=== PATIENT | male | born 1955 | race American Indian/Alaskan Native ===

== ENCOUNTER 2018-11-27 12:42 | Inpatient (IN) ==
--- NOTE | 2018-11-27 13:00 | Emergency Department Note ---
SOB HPI - General Chief Complaint: Shortness of Breath/Dyspnea Stated Complaint: Cough, hx pna, SOB Time Seen by Provider: 11/27/18 12:57 Source: patient Mode of arrival: ambulatory Limitations: no limitations - History of Present Illness Patient was seen at the [facility] on 10/30/18 for pneumonia and treated outpatient with antibiotics apparently was rechecked on 11/14/18 and cleared. They state the flu test was negative at that time he is a dialysis pat ient of Dr. Chambers has dialysis 3 times a week just had dialysis this morning. He is complaining of continued cough, and fever and chills. And some shortness of breathHis temperature is 102.2 the pulse is 104 the respiratory rate is 20 the blood pressure is 99/63 and pulse ox is 91% on room air his Accu-Chek is 71. Patient has a heavy history of tobacco in the past states he had smoked up to 24 packs of cigarettes a day claims to have quit approximately 15-20 years ago. - Related Data Home Medications Medication Instructions Recorded Confirmed Sevelamer [Renvela] 1,600 tab PO TIDCC 04/30/15 11/27/18 Calcium Acetate [Phoslo] 667 mg PO TIDCC 07/14/15 11/27/18 Ciprofloxacin 0.3% Ophth Drops 5 gtt OD TID 11/27/18 11/27/18 [Ciloxan 0.3% Ophth Drops] Loperamide HCl [Loperamide] 4 mg PO PRN PRN MDD 16 mg 11/27/18 11/27/18 Megestrol Acetate [Megace] 40 mg PO DAILY 11/27/18 11/27/18 Midodrine [Midodrine HCl] 5 mg PO BID 11/27/18 11/27/18 Allergies Allergy/AdvReac Type Severity Reaction Status Date / Time No Known Drug Allergies Allergy Verified 08/09/18 09:45 Review of Systems All systems ED: reviewed and negative except as stated. Constitutional: Reports: fever, chills Respiratory: Reports: shortness of breath, cough. Denies: wheezes, phlegm Gastrointestinal: Denies: abdominal pain, nausea Past Medical History - Past Medical History PMF Narrative: All Active Problems (Last Reviewed 08/09/18 @ 09:51 by HIMANSHU Mack) Septic arthritis (Acute) Septic arthritis of ankle or foot (Acute) Osteomyelitis (Acute) Wrist pain, left (Acute) Medical history: Reports: other (Patient has a history of chronic renal failure and currently on dialysis, history of hepatitis, peripheral neuropathy,) Surgical history ED: Reports: other (Cataract, tonsillectomy, cholecystectomy,) - Social History smoking status: Former smoker Alcohol use: Reports: Unknown Drug use: Reports: unknown Physical Exam Limitations: no limitations General appearance: alert Head: atraumatic, normocephalic Eye: Present: normal appearance, PERRL ENT: normal exam, normal oropharynx, mucous membranes moist Neck: Present: normal inspection, full ROM, trachea midline Chest: Present: normal inspection, symmetric chest wall rise Respiratory: Present: normal lung sounds bilaterally. Absent: respiratory distress Cardiovascular: Present: regular rate, normal rhythm. Absent: bradycardia, tachycardia Abdominal: Present: soft, distention, tenderness Extremities: Present: normal inspection, full ROM. Absent: tenderness Back: Present: normal inspection, full ROM. Absent: tenderness Neurological: Present: alert, oriented X3, CN II-XII intact, normal gait. Absent: motor sensory deficit Psychiatric: Present: normal affect, normal mood. Absent: depressed, agitated Skin: Present: warm, dry, intact, normal color Course Vital Signs Temperature 102.2 F H 11/27/18 12:43 Pulse Rate 104 H 11/27/18 12:43 Respiratory Rate 20 11/27/18 12:43 Blood Pressure 99/63 11/27/18 12:43 Pulse Oximetry (%) 91 11/27/18 12:43 Temperature 98.8 F 11/28/18 04:01 Pulse Rate 66 11/28/18 06:01 Respiratory Rate 16 11/28/18 06:01 Blood Pressure 86/59 11/28/18 06:01 Pulse Oximetry (%) 100 11/28/18 06:01 Shortness of Breath/Dyspnea - Lab Data Result diagrams: 11/28/18 04:10 11/28/18 04:10 Lab Results 11/27/18 11/27/18 11/27/18 Range/Units 13:02 13:02 13:02 WBC (4.5-11.0) K/mcL RBC (4.50-5.90) M/mcL Hgb (13.5-16.5) g/dL Hct (41.0-55.0) % MCV (80.0-100.0) fL MCH (26.0-34.0) pg MCHC (31.0-36.0) g/dL RDW (11.5-14.5) % Plt Count (140-440) K/mcL MPV (7.4-10.4) fL Total Counted Seg Neutrophils % (38-78) % Band Neutrophils % (0-10) % Lymphocytes % (15-49) % Monocytes % (Manual) (1-12) % Platelet Estimate (NORMAL) RBC Morphology (NORMAL) PT 17.0 H (11.9-14.5) sec INR 1.4 H (0.9-1.1) VBG Lactic Acid 1.8 (0.5-2.0) mmol/L Sodium 131 L (133-145) mmol/L Potassium 3.3 (3.3-5.1) mmol/L Chloride 93 L (96-108) mmol/L Carbon Dioxide 33 H (22-30) mmol/L Anion Gap 5.0 L (8-16) BUN 19 (8-23) mg/dl Creatinine 1.9 H (0.7-1.2) mg/dl GFR Calculation 37 Glucose 76 (70-105) mg/dL Calcium 7.4 L (8.6-10.4) mg/dl Total Bilirubin 0.8 (0.0-1.0) mg/dL AST 20 (0-37) U/l ALT 11 (0-40) U/l Alkaline Phosphatase 75 (39-117) U/L NT-Pro-B Natriuret Pep 4767.0 H (0-125) pg/ml Total Protein 6.4 (5.9-8.4) gm/dL Albumin 2.2 L (3.2-5.2) gm/dL Globulin 4.2 H (2.2-3.7) gm/dL Albumin/Globulin Ratio 0.5 L (1.0-2.3) 11/27/18 Range/Units 13:03 WBC 8.1 (4.5-11.0) K/mcL RBC 2.76 L (4.50-5.90) M/mcL Hgb 8.5 L (13.5-16.5) g/dL Hct 25.9 L (41.0-55.0) % MCV 94.1 (80.0-100.0) fL MCH 30.8 (26.0-34.0) pg MCHC 32.8 (31.0-36.0) g/dL RDW 15.6 H (11.5-14.5) % Plt Count 23 L* (140-440) K/mcL MPV 9.2 (7.4-10.4) fL Total Counted 100 Seg Neutrophils % 88 H (38-78) % Band Neutrophils % 1 (0-10) % Lymphocytes % 10 L (15-49) % Monocytes % (Manual) 1 (1-12) % Platelet Estimate Mk decr A (NORMAL) RBC Morphology Normal (NORMAL) PT (11.9-14.5) sec INR (0.9-1.1) VBG Lactic Acid (0.5-2.0) mmol/L Sodium (133-145) mmol/L Potassium (3.3-5.1) mmol/L Chloride (96-108) mmol/L Carbon Dioxide (22-30) mmol/L Anion Gap (8-16) BUN (8-23) mg/dl Creatinine (0.7-1.2) mg/dl GFR Calculation Glucose (70-105) mg/dL Calcium (8.6-10.4) mg/dl Total Bilirubin (0.0-1.0) mg/dL AST (0-37) U/l ALT (0-40) U/l Alkaline Phosphatase (39-117) U/L NT-Pro-B Natriuret Pep (0-125) pg/ml Total Protein (5.9-8.4) gm/dL Albumin (3.2-5.2) gm/dL Globulin (2.2-3.7) gm/dL Albumin/Globulin Ratio (1.0-2.3) Disposition Pt seen by PHARMACEUTICAL SERVICE REPRESENTATIVE/PA only: No Clinical Impression: Pneumonia Disposition: Xfer As Inpt ([facility]) Condition: Fair Time of Disposition: 08:06
--- NOTE | 2018-11-27 13:45 | XRay Report ---
HISTORY: Cough for one month FINDINGS: Moderate bibasilar pneumonia is present, right worse than left. Mild increased interstitial lung markings are present around both maddie. These are new findings since 02/25/17. No mass is identified. There is no pleural effusion and no adenopathy is identified. The heart size is normal and there is no congestive heart failure. IMPRESSION: Moderate bilateral pneumonia with the greatest involvement in the right lower lobe Interpreted and Authenticated by: Surendra Iyer 11/27/18
[2018-11-27] MEDS ORDERED: cefTRIAXone 1 GM VIAL IV ONE (14:01)
[2018-11-27] MEDS ORDERED: AZITHROMYCIN 500 MG in DEXTROSE 5% IN WATER 250 ML IV ONE (14:02)
[2018-11-27 14:06] LABS: Band Neutrophils % 1 % (0-10); Lymphocytes % 10 % (15-49); Monocytes % (Manual) 1 % (1-12); Platelet Estimate MK DECR (NORMAL); RBC Morphology NORMAL (NORMAL); Segmented Neutrophils % 88 % (38-78)
[2018-11-27 14:08] LABS: Mean Cell Volume 94.1 fL (80.0-100.0); Mean Corpuscular HGB Conc 32.8 g/dL (31.0-36.0); Platelet Count 23 K/mcL (140-440); RBC 2.76 M/mcL (4.50-5.90); Red Cell Distribution Width 15.6 % (11.5-14.5)
[2018-11-27 14:09] LABS: ALT/SGPT 11 U/l (0-40); Albumin 2.2 gm/dL (3.2-5.2); Albumin/Globulin Ratio 0.5 (1.0-2.3); Alkaline Phosphatase 75 U/L (39-117); Blood Urea Nitrogen 19 mg/dl (8-23)
[2018-11-27] MEDS ORDERED: LACTATED RINGERS 1,000 ML IV ONE (15:07)
--- NOTE | 2018-11-27 15:56 | Internal Med History&Physical ---
Medical - H&P: HPI Patient information: Note initiated : 11/27/18 at 3:49 pm Service Date, if different from initiated Date: [] Patient: Erwin Gaxiola a 63 y/o M admitted on for Cough, hx pna, SOB. Chief Complaint: [] History of present illness: Mr. Gaxiola is a 63 year old M with h/o esrd on HD, presents to the ER today accompanied by his daugther for evaluation of shortness of breath and fever The patient notes that his symptoms have been going on for a month, started with a ear infectin, he was sen by ENT and advised to start on antibiotic ear drops. The patient later had cough and shortness of breath, fatigue, decreased appetitie and weight loss. He was seen by his PCP diagnosed as pneumonia and pre scribed antibiotics. (keflex?). The patient notes he took his antibiotics, but they got over a week ago, he was relapsing. He became progressively more short of breath, febrile, cough with yellow sputum, chills. He had his HD today, and was febrile and was sent to ER for further evaluation In the ER on presentation, patient had a fever of 102.2, heart rate 104, blood pressure 99 x 63 saturating 91% on room air. WBC count 8.1 hemoglobin 8.5 platelets 23 [is chronically low platelets have been in the 30s and 40s in the past], lactic acid 1.8, sodium 131 potassium 3.3 bicarbonate 33 creatinine 1.9 glucose 76 BNP 7467, Albumin was 2.2. Chest x-ray shows bilateral pneumonia right more than left basilar. Blood cultures were sent, Rocephin and azithromycin was given in the ED. Patient had low blood pressure 80 systolic, and was admitted to PCU for further management All systems: reviewed and no additional remarkable complaints except as stated (As per HPI rest negative) Medical - H&P: PMH Medical history: Medical History 1. Type 2 diabetes, long-standing. 2. End-stage renal disease on chronic hemodialysis 3 days a week. 3. Diabetic neuropathy and nephropathy. 4. Anemia of chronic kidney disease. 5. Hyperparathyroidism. 6. Hypertension. 7. Chronic lower extremity diabetic foot ulcers. 8. He had tenosynovitis involving his hand for which he needed antibiotics for a long time. 9. He has subclavian stenosis at the site of his AV fistula which is a total occlusion. 10. Gastroesophageal reflux disease. 11.thrombocytopenia 12.malnourished Surgical history: right finger amputations. Family history: reviewed and not pertinent Pertinent family history: FAMILY HISTORY: Significant for gastroesophageal reflux disease in mother and father, and diabetes mellitus in grandmother. No history of malignancies. Social history: The patient is a ex smoker . He used to drink but quit . 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 smokes thc daily Medical - H&P: Meds Home Medications Medication Instructions Recorded Confirmed Type Sevelamer [Renvela] 2 tab PO TID 04/30/15 11/27/18 History Calcium Acetate [Phoslo] 667 mg PO QID 07/14/15 11/27/18 History Ciprofloxacin 0.3% Ophth Drops 5 gtt OD TID 11/27/18 11/27/18 History [Ciloxan 0.3% Ophth Drops] Loperamide HCl [Loperamide] 4 mg PO PRN PRN 11/27/18 11/27/18 History Megestrol Acetate [Megace] 40 mg PO DAILY 11/27/18 11/27/18 History Midodrine [Midodrine HCl] 5 mg PO BID 11/27/18 11/27/18 History Allergies Allergy/AdvReac Type Severity Reaction Status Date / Time No Known Drug Allergies Allergy Verified 08/09/18 09:45 Medical - H&P: Exam - Constitutional Vitals: Temp Pulse Resp BP Pulse Ox 100.7 F H 98 H 23 H 85/61 95 11/27/18 13:00 11/27/18 14:31 11/27/18 15:21 11/27/18 15:16 11/27/18 14:31 Exam: GENERAL: The patient is a thin malnourished frail individual poorly kept alert oriented x3 VITAL SIGNS: Reviewed and as noted elsewhere. HEENT: Head is normocephalic and atraumatic. Extraocular muscles are intact. Pupils are equal, round, and reactive to light. Nares appeared normal. Mouth appears any without lesions. Mucous membranes are dry NECK: Normal to inspection, Supple, No lymphadenopathy or thyromegaly. LUNGS: Air entry equal on both sides, no wheezing, bibasilar crackles at the bases noted left more than right HEART: Regular rate and rhythm normal, S1 and S2 heard, no Gallop, S3 or Rub Noted, No Gross murmur heard. ABDOMEN: Soft, nontender, and nondistended. Positive bowel sounds. No hepatosplenomegaly was noted. Scaphoid abdomen EXTREMITIES: No cyanosis, clubbing, rash, lesions or edema. Right upper extremity digits missing NEUROLOGIC: Cranial nerves II through XII are grossly intact. Motor and Sensory System Grossly Intact PSYCHIATRIC: Normal affect, Normal Mood. Appropriate Behavior. SKIN: No ulceration or wounds noted, No jaundice, No rash noted. Medical - H&P: Reslt - Labs CBC & Chem 7: 11/27/18 13:03 11/27/18 13:02 Labs: Short CBC 11/27/18 Range/Units 13:03 WBC 8.1 (4.5-11.0) K/mcL Hgb 8.5 L (13.5-16.5) g/dL Hct 25.9 L (41.0-55.0) % Plt Count 23 L* (140-440) K/mcL BMP 11/27/18 13:02 Sodium 131 L Potassium 3.3 Chloride 93 L Carbon Dioxide 33 H BUN 19 Creatinine 1.9 H Glucose 76 Calcium 7.4 L Liver Function 11/27/18 Range/Units 13:02 Total Bilirubin 0.8 (0.0-1.0) mg/dL AST 20 (0-37) U/l ALT 11 (0-40) U/l Alkaline Phosphatase 75 (39-117) U/L Albumin 2.2 L (3.2-5.2) gm/dL Medical - H&P: A/P - Narrative A/P Narrative: A/P Sepsis/ HCAP pneumoina -IV vanco,cefepime and levofloxacin for now, follow blood culture results sputum cultures. Check viral respiratory panel. Hypotension -It seems patient was on midodrine as an outpatient but this was recently started according to the patient after he was diagnosed with the infection is also had significant weight loss. IV fluids for now monitor, will try to keep map > 65 ESRD on HD Follows with Dr. Chambers, he has been consulted through the ED, patient had dialysis today Thrombocytopenia -Seems chronic levels are worse today could be explained by acute infection, will check peripheral smear, HIV, check liver ultrasound for hepatosplenomegaly liver cirrhosis given history of alcohol use in the past, check hep B and hep C B12 and folate levels Malnutrition severe -Dietary consult, pt on megace, smokes thc daily. -has chr diarrhea, was scheduled for Colonoscopy tomorrow by Dr Kam, also EGD few days from now. Hold off on same for now, Diabetes -Sliding scale insulin while inpatient History of hypertension -Blood pressure low now monitor Anemia of chr disease/ Renal disease -monitor hb, send workup if needed, transfuse if < 7 Vascular disease/atherosclerosis -resume home meds DVT SCD Full code
[2018-11-27] MEDS ORDERED: CEFEPIME 1 GM VIAL IV SCH (16:02)
[2018-11-27] MEDS ORDERED: ACETAMINOPHEN 325 MG TABLET PO PRN (16:02)
[2018-11-27] MEDS ORDERED: NALOXONE HCL 0.4 MG/ML VIAL IV PRN (16:02)
[2018-11-27] MEDS ORDERED: VANCOMYCIN PER PHARMACY IV ONE (16:02)
[2018-11-27] MEDS ORDERED: SENNOSIDES 1 TABLET PO PRN (16:02)
[2018-11-27] MEDS ORDERED: LEVOFLOXACIN 750 MG/150 ML BAG IV ONE ×2 (16:02→17:00)
[2018-11-27] MEDS ORDERED: LACTATED RINGERS 1,000 ML IV SCH (16:02)
[2018-11-27] MEDS ORDERED: ONDANSETRON 4 MG/2 ML VIAL IV PRN (16:02)
[2018-11-27] MEDS ORDERED: VANCOMYCIN PER PHARMACY IV SCH (16:30)
[2018-11-27] MEDS ORDERED: CEFEPIME 1 GM VIAL IV ONE (17:00)
--- NOTE | 2018-11-27 17:48 | Ultrasound Report ---
History: Thrombocytopenia and hepatosplenomegaly FINDINGS: The liver is normal in size but the parenchyma is heterogeneous. There is no evidence of a mass. Doppler shows normal blood flow in the hepatic and portal veins. No ascites is present. There is a very small right-sided pleural effusion. The spleen is mildly enlarged with an estimated volume of 267 cc. The spleen is homogeneous. The pancreas appears normal without evidence of a mass or inflammation. There is atrophy both kidneys. The renal parenchyma is thin and echogenic bilaterally. The right kidney measures 3.3 x 3.7 x 7.6 cm and the left measures 4.0 x 4.0 x 6.6 cm. There is a moderate amount calcified plaque along the wall of a normal caliber abdominal aorta. Inferior vena cava is normal. The gallbladder is surgically absent. The common bile duct measures up to 9 mm. There is no dilatation of the intrahepatic ducts. IMPRESSION: Atrophic kidneys bilaterally due to chronic medical renal disease. Mild splenomegaly Normal size liver with heterogeneous liver parenchyma which may be due to cirrhosis or fatty infiltration. Very small right-sided pleural effusion Dilated extrahepatic duct. This may be a reservoir effect following prior cholecystectomy or there could be a stricture at the ampulla. Interpreted and Authenticated by: Surendra Iyer 11/27/18
[2018-11-27 18:04] LABS: Hepatitis B Surface Antigen NEGATIVE (NEGATIVE)
[2018-11-27 18:10] LABS: Vitamin B12 495.3 pg/ml (232-1245)
[2018-11-27] MEDS ORDERED: CYANOCOBALAMIN 1,000 MCG/ML VIAL IM ONE (18:17)
[2018-11-27 19:16] LABS: HIV1/2 AG/AB 4TH Generation NON-REACTIVE
[2018-11-27] MEDS: ZOLPIDEM 5 MG TABLET PO PRN (19:19)
[2018-11-27 19:31] LABS: Hepatitis C Virus Antibody REACTIVE (NEGATIVE)
[2018-11-27] MEDS ORDERED: VANCOMYCIN 1,000 MG in 0.9 % SODIUM CHLORIDE 250 ML IV ONE (20:00)
[2018-11-27 20:49] LABS: Hepatitis B Surface Antibody BORDERLINE (NEGATIVE)
[2018-11-27] MEDS: 0.9 % SODIUM CHLORIDE 10 ML SYRINGE IV SCH (23:20)
[2018-11-28] MEDS ORDERED: LACTATED RINGERS 500 ML IV ONE (02:27)
[2018-11-28] MEDS: 0.9 % SODIUM CHLORIDE 10 ML SYRINGE IV SCH ×3 (05:25→22:28)
[2018-11-28 07:12] LABS: ALT/SGPT 7 U/l (0-40); Albumin 1.7 gm/dL (3.2-5.2); Albumin/Globulin Ratio 0.5 (1.0-2.3); Alkaline Phosphatase 65 U/L (39-117); Bilirubin,Direct 0.4 mg/dL (0.0-0.3); Blood Urea Nitrogen 28 mg/dl (8-23); Gamma Glutamyl Transpeptidase 13 U/L (8-61); Uric Acid 1.4 mg/dL (2.5-8.0)
[2018-11-28 07:14] LABS: Basophils # (Auto) 0 K/mcL (0.0-0.3); Basophils % (Auto) 0.2 % (0.0-2.0); Eosinophils # (Auto) 0 K/mcL (0.0-0.7); Eosinophils % (Auto) 0.1 % (0.0-7.0); Granulocytes % (Auto) 80.3 % (38.0-78.0); Lymphocytes # (Auto) 0.8 K/mcL (1.5-4.8); Lymphocytes % (Auto) 15.1 % (15.5-49.0); Mean Cell Volume 96.3 fL (80.0-100.0); Mean Corpuscular HGB Conc 32.6 g/dL (31.0-36.0); Monocytes # (Auto) 0.2 K/mcL (0.1-0.9); Monocytes % (Auto) 4.3 % (1.0-12.0); Platelet Count 19 K/mcL (140-440); RBC 2.45 M/mcL (4.50-5.90); Red Cell Distribution Width 16.1 % (11.5-14.5)
[2018-11-28] MEDS ORDERED: POTASSIUM PHOSPHATE 40 MEQ in DEXTROSE 5% IN WATER 500 ML IV ONE (08:07)
[2018-11-28] MEDS ORDERED: MAGNESIUM SULFATE 2 GM/50 ML BAG IV ONE (08:09)
[2018-11-28] MEDS ORDERED: MEGESTROL ACETATE 40 MG TABLET PO SCH (09:11)
[2018-11-28] MEDS ORDERED: LOPERAMIDE 2 MG CAPSULE PO PRN (09:21)
[2018-11-28] MEDS ORDERED: MIDODRINE 5 MG TABLET PO ONE (09:38)
[2018-11-28 09:56] LABS: Iron 46 mcg/dl (61-157); Transferrin % Saturation 40 % (20-50); Unsaturated Iron Binding 67 mcg/dL (112-346)
[2018-11-28] MEDS: FOLIC ACID/VITAMIN B COMP W-C 1 TAB TABLET PO SCH (09:56)
[2018-11-28] MEDS: CYANOCOBALAMIN (VITAMIN B-12) 500 MCG TABLET PO SCH (09:56)
[2018-11-28 10:05] LABS: Ferritin 790.9 ng/ml (30-400)
[2018-11-28] MEDS: CEFEPIME 1 GM VIAL IV SCH (10:21)
--- NOTE | 2018-11-28 11:32 | Internal Med Progress Note ---
Medical - PN: Subj Patient information: Note initiated : 11/28/18 at 11:28 am Service Date, if different from initiated Date: [] Patient: Erwin Gaxiola a 63 y/o M admitted on 11/27/18 for Cough, hx pna, SOB. Chief Complaint: [] Interval history: Mr. Gaxiola is a 63 year old M with h/o esrd on HD, presents to the ER today accompanied by his daugther for evaluation of shortness of breath and fever The patient notes that his symptoms have been going on for a month, started with a ear infectin, he was sen by ENT and advised to start on antibiotic ear drops. The patient later had cough and shortness of breath, fatigue, decreased appetitie and weight loss. He was seen by his PCP diagnosed as pneumonia and prescribed antibiotics. (keflex?). The patient notes he took his antibiotics, but they got over a week ago, he was relapsing. He became progressively more short of breath, febrile, cough with yellow sputum, chills. He had his HD today, and was febrile and was sent to ER for further evaluation In the ER on presentation, patient had a fever of 102.2, heart rate 104, blood pressure 99 x 63 saturating 91% on room air. WBC count 8.1 hemoglobin 8.5 platelets 23 [is chronically low platelets have been in the 30s and 40s in the past], lactic acid 1.8, sodium 131 potassium 3.3 bicarbonate 33 creatinine 1.9 glucose 76 BNP 7467, Albumin was 2.2. Chest x-ray shows bilateral pneumonia right more than left basilar. Blood cultures were sent, Rocephin and azithromycin was given in the ED. Patient had low blood pressure 80 systolic, and was admitted to PCU for further management 2/5 Pt seen examined, overnight was hypotensive with BP in systolic 70's needing fluid bolus, which helped this AM sitting comfortably in chair, no new complaints or concerns, feels better bp stable, 80 systolic, map > 65, resumed home dose of midodrine will continue abx and monitor Hb and platlet are low, likely due to sepsis, will touch base with nephrology to see if this has been worked up Pertinent ROS: Denies headache, dizziness Denies chest pain, palpitations improving cough and shortness of breath. Denies abdominal pain, nausea or vomiting. - Constitutional Vitals: Vital Signs Temp Pulse Resp BP Pulse Ox 98.6 F 81 19 77/59 99 11/28/18 07:00 11/28/18 10:01 11/28/18 10:01 11/28/18 10:01 11/28/18 10:01 Period Temp Pulse Resp BP Sys/William Pulse Ox Last 24 Hr 98.2 F-102.2 F 62-104 0-29 77-101/51-69 86-100 Intake and Output 11/27/18 11/28/18 11/28/18 21:59 05:59 13:59 Intake Total 1770 1120 240 Balance 1770 1120 240 Weight 104 lb 11.2 oz Intake & Output: Intake & Output 11/27/18 11/28/18 11/28/18 21:59 05:59 13:59 Intake Total 1770 1120 240 Balance 1770 1120 240 Weight 104 lb 11.2 oz Intake: IV 1650 1000 Zithromax 500 mg In Dextrose 5% 250 in Water 250 ml @ 250 mls/hr IV ONCE ONE Rx#:[id number] Lactated Ringers 1,000 ml @ 1000 Wide Open IV BOLUS ONE Rx#: [id number] Vancomycin 1,000 mg In Sodium 250 Chloride 0.9% 250 ml @ 250 mls/ hr IV ONCE ONE Rx#:[id number] Oral 120 120 240 Other: Meal Dinner Breakfast Percent of Meal Consumed 50% 25% Feeding Ability Assist with Tray Set Up Exam: Constitutional; Afebrile, cooperative, alert, not in distress. think cachetic individual Respiratory system: Air Entry equal on both sides bibasilar crackles present improved from yesterday. CVS- Rate rhythm regular, S1,S2 heard, no gallop, no rub. 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 Medical - PN: Obj Da - Labs CBC & Chem 7: 11/28/18 04:10 11/28/18 04:10 Labs: Abnormal Lab Results 11/28/18 11/28/18 11/28/18 08:47 04:10 04:10 RBC 2.45 L Hgb 7.7 L Hct 23.6 L RDW 16.1 H Plt Count 19 L* Gran % 80.3 H Lymph % (Auto) 15.1 L Lymph # (Auto) 0.8 L Seg Neutrophils % Lymphocytes % Platelet Estimate PT INR Sodium 131 L Potassium 3.2 L Chloride 94 L Carbon Dioxide Anion Gap 7.0 L BUN 28 H Creatinine 2.5 H Glucose 57 L Uric Acid 1.4 L Calcium 7.0 L Phosphorus 1.4 L Iron 46 L TIBC 113 L Unsat Iron Binding 67 L Ferritin 790.9 H Direct Bilirubin 0.4 H NT-Pro-B Natriuret Pep Total Protein 5.0 L Albumin 1.7 L Globulin Albumin/Globulin Ratio 0.5 L Folate Hep Bs Antibody 11/27/18 11/27/18 11/27/18 16:45 16:45 13:03 RBC 2.76 L Hgb 8.5 L Hct 25.9 L RDW 15.6 H Plt Count 23 L* Gran % Lymph % (Auto) Lymph # (Auto) Seg Neutrophils % 88 H Lymphocytes % 10 L Platelet Estimate Mk decr A PT INR Sodium Potassium Chloride Carbon Dioxide Anion Gap BUN Creatinine Glucose Uric Acid Calcium Phosphorus Iron TIBC Unsat Iron Binding Ferritin Direct Bilirubin NT-Pro-B Natriuret Pep Total Protein Albumin Globulin Albumin/Globulin Ratio Folate 2.4 L Hep Bs Antibody Borderline A 11/27/18 11/27/18 13:02 13:02 RBC Hgb Hct RDW Plt Count Gran % Lymph % (Auto) Lymph # (Auto) Seg Neutrophils % Lymphocytes % Platelet Estimate PT 17.0 H INR 1.4 H Sodium 131 L Potassium Chloride 93 L Carbon Dioxide 33 H Anion Gap 5.0 L BUN Creatinine 1.9 H Glucose Uric Acid Calcium 7.4 L Phosphorus Iron TIBC Unsat Iron Binding Ferritin Direct Bilirubin NT-Pro-B Natriuret Pep 4767.0 H Total Protein Albumin 2.2 L Globulin 4.2 H Albumin/Globulin Ratio 0.5 L Folate Hep Bs Antibody Meds: Medications Acetaminophen (Tylenol) 650 mg PO Q4-6HP PRN PRN Reason: PAIN/FEVER > 101 Last Admin: 11/27/18 20:57 Dose: 650 mg Documented by: Calcium Acetate (Phoslo) 667 mg PO TIDCC [facility] Cefepime HCl (Maxipime) 0.5 gm IV Q24H [facility]IOGEN[facility] Last Admin: 11/28/18 10:21 Dose: 0.5 gm Documented by: Cyanocobalamin (Vitamin B-12) 1,000 mcg PO DAILY [facility] Last Admin: 11/28/18 09:56 Dose: 1,000 mcg Documented by: Levofloxacin (Levaquin) 500 mg in 100 mls @ 100 mls/hr IV Q48H [facility] Potassium Phosphate 40 meq/ (Dextrose) 509.0909 mls @ 127.273 mls/hr IV ONCE ONE Stop: 11/28/18 12:06 Last Admin: 11/28/18 09:59 Dose: 127.273 mls/hr Documented by: Loperamide HCl (Imodium) 2 mg PO UD PRN PRN Reason: Diarrhea Last Admin: 11/28/18 10:21 Dose: 2 mg Documented by: Megestrol Acetate (Megace) 40 mg PO DAILY [facility] Midodrine (Midodrine Hcl) 5 mg PO BID@0800,1700 [facility] Multivit/Ca Carb/B Cmplx/FA/Prenat (Diatx) 1 tab PO DAILY [facility] Last Admin: 11/28/18 09:56 Dose: 1 tab Documented by: Naloxone HCl (Narcan) 0.1 mg IV Q2MIN PRN PRN Reason: Opiate Reversal Ondansetron HCl (Zofran) 4 mg IV Q4-6HP PRN PRN Reason: Nausea And Vomiting Senna (Senokot) 1 tab PO HSP PRN PRN Reason: Constipation Sevelamer Carbonate (Renvela) 1,600 mg PO TIDCC [facility] Sodium Chloride (Saline Flush) 10 ml IV Q8 [facility] Last Admin: 11/28/18 05:25 Dose: 10 ml Documented by: Vancomycin HCl (Vancomycin Per Pharmacy) 1 order IV UD [facility] Zolpidem Tartrate (Ambien) 5 mg PO HSP PRN PRN Reason: Insomnia Last Admin: 11/27/18 19:19 Dose: 5 mg Documented by: Medical - PN: A/P - Time Spent With Patient Total time spent is greater than 50% in coordination of care (as documented) at patient's floor/unit and/or counseling patient: - Narrative A/P Narrative: A/P Sepsis/ HCAP pneumoina -IV vanco,cefepime and levofloxacin for now, follow blood culture results sputum cultures. viral resp panel is neg, Hypotension -due to sepsis, pt also has low bp at baseline, resumed midodrine, monitor bp for now ESRD on HD Follows with Dr. Chambers, he has been consulted through the ED, patient had dialysis yesterday, lyes stable, Thrombocytopenia -folate levels are low, platlets are 19 now, continume to watch closely, peripheral smear is neg for schitocytes, will touch base with nephrology to see if this is worked up, no splenomegaly, liver ? cirrhosis ? infiltrative pattern seen vit b12, folate added to his regime. hiv, hep c neg, hep b neg Malnutrition severe -Dietary consult, pt on megace, smokes thc daily. -has chr diarrhea, was scheduled for Colonoscopy by Dr Kam, also EGD few days from now. Hold off on same for now, Diabetes -not on any meds at home, glucose levels stable, monitor on daily labs for now, no need for achs checking or ssi coverage. History of hypertension -Blood pressure low now monitor Anemia of chr disease/ Renal disease -monitor hb, send workup if needed, transfuse if < 7, no e/o iron def, may benefit from aranesp Vascular disease/atherosclerosis -resume home meds DVT SCD Full code Medical - PN: Qual - VTE Deep Vein Thrombosis/Pulmonary Embolism Present on Admission: No
[2018-11-28] MEDS: MEGESTROL ACETATE 400 MG/10 ML ORAL.SUSP PO SCH (12:01)
[2018-11-28] MEDS: SEVELAMER 800 MG TABLET PO SCH ×2 (12:02→12:28)
[2018-11-28] MEDS: CALCIUM ACETATE 667 MG CAPSULE PO SCH ×2 (12:02→12:27)
[2018-11-28] MEDS: MIDODRINE 5 MG TABLET PO SCH (17:27)
[2018-11-28] MEDS: CIPROFLOXACIN 0.3% OPHTH DROPS BOTTLE OD SCH (22:00)
[2018-11-28] MEDS: ZOLPIDEM 5 MG TABLET PO PRN (22:03)
[2018-11-29] MEDS: 0.9 % SODIUM CHLORIDE 10 ML SYRINGE IV SCH ×3 (05:48→22:03)
[2018-11-29 07:18] LABS: ALT/SGPT 7 U/l (0-40); Albumin 1.8 gm/dL (3.2-5.2); Albumin/Globulin Ratio 0.5 (1.0-2.3); Alkaline Phosphatase 69 U/L (39-117); Bilirubin,Direct 0.3 mg/dL (0.0-0.3); Blood Urea Nitrogen 38 mg/dl (8-23); Gamma Glutamyl Transpeptidase 13 U/L (8-61); Uric Acid 2.2 mg/dL (2.5-8.0)
[2018-11-29 07:29] LABS: Basophils # (Auto) 0 K/mcL (0.0-0.3); Basophils % (Auto) 0 % (0.0-2.0); Eosinophils # (Auto) 0 K/mcL (0.0-0.7); Eosinophils % (Auto) 0.1 % (0.0-7.0); Granulocytes % (Auto) 82.5 % (38.0-78.0); Lymphocytes % (Auto) 14.3 % (15.5-49.0); Mean Cell Volume 95.4 fL (80.0-100.0); Mean Corpuscular HGB Conc 32.9 g/dL (31.0-36.0); Monocytes # (Auto) 0.2 K/mcL (0.1-0.9); Monocytes % (Auto) 3.1 % (1.0-12.0); Platelet Count 17 K/mcL (140-440); RBC 2.64 M/mcL (4.50-5.90); Red Cell Distribution Width 15.8 % (11.5-14.5)
[2018-11-29] MEDS: CYANOCOBALAMIN (VITAMIN B-12) 500 MCG TABLET PO SCH (08:35)
[2018-11-29] MEDS: FOLIC ACID/VITAMIN B COMP W-C 1 TAB TABLET PO SCH (08:35)
[2018-11-29] MEDS: MIDODRINE 5 MG TABLET PO SCH ×2 (08:35→17:44)
[2018-11-29] MEDS: MEGESTROL ACETATE 400 MG/10 ML ORAL.SUSP PO SCH (08:37)
[2018-11-29] MEDS: CIPROFLOXACIN 0.3% OPHTH DROPS BOTTLE OD SCH ×4 (08:38→19:16)
[2018-11-29] MEDS: CEFEPIME 1 GM VIAL IV SCH (08:48)
[2018-11-29] MEDS ORDERED: LOPERAMIDE 2 MG CAPSULE PO PRN (09:35)
[2018-11-29] MEDS ORDERED: NALOXONE HCL 0.4 MG/ML VIAL IV PRN (09:35)
[2018-11-29] MEDS ORDERED: VANCOMYCIN PER PHARMACY IV SCH (09:35)
[2018-11-29] MEDS ORDERED: ONDANSETRON 4 MG/2 ML VIAL IV PRN (09:35)
[2018-11-29] MEDS ORDERED: ACETAMINOPHEN 325 MG TABLET PO PRN (09:35)
[2018-11-29] MEDS ORDERED: LEVOFLOXACIN 500 MG/100 ML BAG IV SCH ×3 (10:00→15:15)
[2018-11-29 10:02] LABS: Vancomycin,Random 12.7 ug/mL
[2018-11-29 14:16] LABS: Hepatitis B Core Antibody NON-REACTIVE (NON-REACTIVE)
[2018-11-29] MEDS ORDERED: VANCOMYCIN 1,000 MG in 0.9 % SODIUM CHLORIDE 250 ML IV ONE (16:00)
--- NOTE | 2018-11-29 16:28 | Nephrology Progress Note ---
Subjective Patient information: Note initiated : 11/29/18 at 4:26 pm Service Date, if different from initiated Date: [] Patient: Erwin Gaxiola 63 y/o M admitted on 11/27/18 for Cough, hx pna, SOB. Chief Complaint: [] Breathing is better. Had dialysis today. Objective - Vital Signs Vital signs: Vital Signs Temp Pulse Resp BP Pulse Ox 11/29/18 14:42 98.4 F 88 98/67 11/29/18 14:28 89 82/63 11/29/18 14:15 21 90/67 11/29/18 14:11 86 90/67 11/29/18 14:06 19 90/66 11/29/18 14:01 86 21 90/66 11/29/18 14:00 22 89/66 11/29/18 13:51 22 89/67 11/29/18 13:45 22 93/66 11/29/18 13:41 88 89/67 11/29/18 13:30 87 19 93/66 11/29/18 13:15 21 90/63 11/29/18 13:12 91 H 90/63 11/29/18 13:01 24 H 11/29/18 13:00 93 H 20 92/67 11/29/18 12:45 19 87/61 11/29/18 12:43 91 H 87/61 11/29/18 12:30 21 91/62 11/29/18 12:28 91 H 91/62 11/29/18 12:15 89 22 85/68 11/29/18 12:00 91 H 23 H 89/64 11/29/18 11:45 98.6 F 89 19 86/66 11/29/18 11:34 93 H 90/69 11/29/18 11:31 20 11/29/18 11:30 13 90/69 11/29/18 11:23 20 83/59 11/29/18 11:22 23 H 79/60 11/29/18 11:20 90 83/59 11/29/18 11:07 27 H 85/64 11/29/18 11:00 25 H 11/29/18 10:01 21 11/29/18 10:00 23 H 88/62 11/29/18 09:00 23 H 95/71 02/06/19 08:08 87 24 H 98/71 95 11/29/18 08:00 20 11/29/18 07:00 10 L 99/68 11/29/18 06:01 21 11/29/18 06:00 23 H 89/69 93 11/29/18 05:01 19 11/29/18 05:00 19 95/68 96 11/29/18 04:01 97.2 F 18 93 11/29/18 04:00 22 99/66 11/29/18 03:01 16 11/29/18 03:00 18 97/66 96 11/29/18 02:01 18 11/29/18 02:00 18 94/66 94 11/29/18 01:01 12 11/29/18 01:00 17 88/62 93 11/29/18 00:15 75 25 H 95 11/29/18 00:14 72 98/64 96 11/29/18 00:01 19 11/29/18 00:00 98.0 F 19 93 11/28/18 23:01 68 18 97 11/28/18 23:00 68 18 87/62 97 11/28/18 22:01 73 18 95 11/28/18 22:00 73 21 90/67 96 11/28/18 21:01 73 18 97 11/28/18 21:00 73 22 90/64 95 11/28/18 20:02 97.6 F 80 20 104/72 90 11/28/18 20:00 80 22 96 11/28/18 19:06 92 H 18 99 11/28/18 19:05 92 H 24 H 99/65 95 11/28/18 19:00 20 11/28/18 18:01 83 18 98 11/28/18 18:00 83 22 89/65 95 11/28/18 17:01 77 18 97 11/28/18 17:00 78 21 103/74 96 Intake and Output 11/29/18 11/29/18 11/29/18 05:59 13:59 21:59 Intake Total 300 120 Output Total 450 100 Balance 300 -330 -100 Intake: Oral 300 120 Output: Urine/Stool Mix 450 Hemodialysis UF 100 Other: Meal Breakfast Percent of Meal Consumed 75% Stool Size Moderate Stool Color Pale Stool Consistency Liquid Watery Vandana # of times incontinent of 1 2 Bowels Intake & Output: Intake & Output 11/29/18 11/29/18 11/29/18 05:59 13:59 21:59 Intake Total 300 120 Output Total 450 100 Balance 300 -330 -100 Intake: Oral 300 120 Output: Urine/Stool Mix 450 Hemodialysis UF 100 Other: Meal Breakfast Percent of Meal Consumed 75% Stool Size Moderate Stool Color Pale Stool Consistency Liquid Watery Vandana # of times incontinent of 1 2 Bowels - General Appearance General appearance: cachectic EENT: ATNC Neck: no JVD Respiratory: rales Cardiology: no murmurs Neurologic: no focal deficit - Lab 11/29/18 03:40 11/29/18 03:40 Most recent lab results Calcium 7.1 mg/dl (8.6-10.4) L 11/29/18 03:40 Phosphorus 3.3 mg/dL (2.7-4.5) 11/29/18 03:40 Magnesium 2.0 mg/dL (1.6-2.5) 11/29/18 03:40 Assessment and Plan (1) ESRD (end stage renal disease) on dialysis Status: Acute Comment: had dialysis today. Tolerated well. Pneumonia. On antibiotics. Low cell count. agree will need bone marrow as outpatient.
--- NOTE | 2018-11-29 18:46 | Internal Med Progress Note ---
Medical - PN: Subj Patient information: Note initiated : 11/29/18 at 6:44 pm Service Date, if different from initiated Date: [] Patient: Erwin Gaxiola a 63 y/o M admitted on 11/27/18 for Cough, hx pna, SOB. Chief Complaint: f/u PNA Interval history: 11/27 Mr. Gaxiola is a 63 year old M with h/o esrd on HD, presents to the ER today accompanied by his daugther for evaluation of shortness of breath and fever The patient notes that his symptoms have been going on for a month, started with a ear infectin, he was sen by ENT and advised to start on antibiotic ear drops. The patient later had cough and shortness of breath, fatigue, decreased appetitie and weight loss. He was seen by his PCP diagnosed as pneumonia and prescribed antibiotics. (keflex?). The patient notes he took his antibiotics, but they got over a week ago, he was relapsing. He became progressively more short of breath, febrile, cough with yellow sputum, chills. He had his HD today, and was febrile and was sent to ER for further evaluation In the ER on presentation, patient had a fever of 102.2, heart rate 104, blood pressure 99 x 63 saturating 91% on room air. WBC count 8.1 hemoglobin 8.5 platelets 23 [is chronically low platelets have been in the 30s and 40s in the past], lactic acid 1.8, sodium 131 potassium 3.3 bicarbonate 33 creatinine 1.9 glucose 76 BNP 7467, Albumin was 2.2. Chest x-ray shows bilateral pneumonia right more than left basilar. Blood cultures were sent, Rocephin and azithromycin was given in the ED. Patient had low blood pressure 80 systolic, and was admitted to PCU for further management 2/ Pt seen examined, overnight was hypotensive with BP in systolic 70's needing fluid bolus, which helped this AM sitting comfortably in chair, no new complaints or concerns, feels better bp stable, 80 systolic, map > 65, resumed home dose of midodrine will continue abx and monitor Hb and platelet are low, likely due to sepsis, will touch base with nephrology to see if this has been worked up 2/ Patient feels much better, breathing improved Discussed with Dr. Chambers Patient with history of cytopenia the [id number] range, likely will need outpatient hematology workup Received hemodialysis today Holding adequate MAP with midodrine - Constitutional Vitals: Vital Signs Temp Pulse Resp BP Pulse Ox 99.6 F H 88 22 86/57 96 11/29/18 16:00 11/29/18 14:42 11/29/18 16:01 11/29/18 17:00 11/29/18 16:00 Period Temp Pulse Resp BP Sys/William Pulse Ox Last 24 Hr 97.2 F-99.6 F 68-93 10-27 79-104/57-72 90-99 Intake and Output 11/29/18 11/29/18 11/29/18 05:59 13:59 21:59 Intake Total 300 120 340 Output Total 450 100 Balance 300 -330 240 Intake & Output: Intake & Output 11/29/18 11/29/18 11/29/18 05:59 13:59 21:59 Intake Total 300 120 340 Output Total 450 100 Balance 300 -330 240 Intake: IV 100 Oral 300 120 240 Output: Urine/Stool Mix 450 Hemodialysis UF 100 Other: Meal Breakfast Dinner Percent of Meal Consumed 75% 75% Feeding Ability Assist with Tray Set Up Stool Size Moderate Copious Stool Color Pale Yellow Stool Consistency Liquid Liquid Watery Watery Vandana # Bowel Movements 1 # of times incontinent of 1 2 Bowels Exam: General: Thin, no acute distress Chest: Few left greater than right basal rales, unlabored Cardiovascular: Regular, no peripheral edema. Abdomen: Soft, scaphoid, nontender Extremities right upper extremity with fistula, some edema Neuro: Alert, oriented, decreased muscle mass, generally weak Medical - PN: Obj Da - Labs CBC & Chem 7: 11/29/18 03:40 11/29/18 03:40 Labs: Abnormal Lab Results 11/29/18 11/29/18 11/28/18 03:40 03:40 08:47 RBC 2.64 L Hgb 8.3 L Hct 25.1 L RDW 15.8 H Plt Count 17 L* Gran % 82.5 H Lymph % (Auto) 14.3 L Lymph # (Auto) 1.0 L Seg Neutrophils % Lymphocytes % Platelet Estimate PT INR Sodium 127 L Potassium Chloride 90 L Carbon Dioxide Anion Gap BUN 38 H Creatinine 3.4 H Glucose 108 H Uric Acid 2.2 L Calcium 7.1 L Phosphorus Iron 46 L TIBC 113 L Unsat Iron Binding 67 L Ferritin 790.9 H Direct Bilirubin NT-Pro-B Natriuret Pep Total Protein 5.3 L Albumin 1.8 L Globulin Albumin/Globulin Ratio 0.5 L Folate Hep Bs Antibody 11/28/18 11/28/18 11/27/18 04:10 04:10 16:45 RBC 2.45 L Hgb 7.7 L Hct 23.6 L RDW 16.1 H Plt Count 19 L* Gran % 80.3 H Lymph % (Auto) 15.1 L Lymph # (Auto) 0.8 L Seg Neutrophils % Lymphocytes % Platelet Estimate PT INR Sodium 131 L Potassium 3.2 L Chloride 94 L Carbon Dioxide Anion Gap 7.0 L BUN 28 H Creatinine 2.5 H Glucose 57 L Uric Acid 1.4 L Calcium 7.0 L Phosphorus 1.4 L Iron TIBC Unsat Iron Binding Ferritin Direct Bilirubin 0.4 H NT-Pro-B Natriuret Pep Total Protein 5.0 L Albumin 1.7 L Globulin Albumin/Globulin Ratio 0.5 L Folate 2.4 L Hep Bs Antibody 11/27/18 11/27/18 11/27/18 16:45 13:03 13:02 RBC 2.76 L Hgb 8.5 L Hct 25.9 L RDW 15.6 H Plt Count 23 L* Gran % Lymph % (Auto) Lymph # (Auto) Seg Neutrophils % 88 H Lymphocytes % 10 L Platelet Estimate Mk decr A PT 17.0 H INR 1.4 H Sodium Potassium Chloride Carbon Dioxide Anion Gap BUN Creatinine Glucose Uric Acid Calcium Phosphorus Iron TIBC Unsat Iron Binding Ferritin Direct Bilirubin NT-Pro-B Natriuret Pep Total Protein Albumin Globulin Albumin/Globulin Ratio Folate Hep Bs Antibody Borderline A 11/27/18 13:02 RBC Hgb Hct RDW Plt Count Gran % Lymph % (Auto) Lymph # (Auto) Seg Neutrophils % Lymphocytes % Platelet Estimate PT INR Sodium 131 L Potassium Chloride 93 L Carbon Dioxide 33 H Anion Gap 5.0 L BUN Creatinine 1.9 H Glucose Uric Acid Calcium 7.4 L Phosphorus Iron TIBC Unsat Iron Binding Ferritin Direct Bilirubin NT-Pro-B Natriuret Pep 4767.0 H Total Protein Albumin 2.2 L Globulin 4.2 H Albumin/Globulin Ratio 0.5 L Folate Hep Bs Antibody Meds: Medications Acetaminophen (Tylenol) 650 mg PO Q4-6HP PRN PRN Reason: PAIN/FEVER > 101 Cefepime HCl (Maxipime) 0.5 gm IV Q24H [facility] Ciprofloxacin (Ciloxan 0.3% Ophth Drops) 5 gtt OD TID [facility] Last Admin: 11/29/18 16:10 Dose: Not Given Documented by: Cyanocobalamin (Vitamin B-12) 1,000 mcg PO DAILY [facility] Levofloxacin (Levaquin) 500 mg in 100 mls @ 100 mls/hr IV Q48H [facility] Last Infusion: 11/29/18 18:26 Dose: Infused Documented by: Loperamide HCl (Imodium) 2 mg PO UD PRN PRN Reason: Diarrhea Megestrol Acetate (Megace) 40 mg PO DAILY [facility] Midodrine (Midodrine Hcl) 5 mg PO BID@0800,1700 [facility] Last Admin: 11/29/18 17:44 Dose: 5 mg Documented by: Multivit/Ca Carb/B Cmplx/FA/Prenat (Diatx) 1 tab PO DAILY [facility] Naloxone HCl (Narcan) 0.1 mg IV Q2MIN PRN PRN Reason: Opiate Reversal Ondansetron HCl (Zofran) 4 mg IV Q4-6HP PRN PRN Reason: Nausea And Vomiting Senna (Senokot) 1 tab PO HSP PRN PRN Reason: Constipation Sodium Chloride (Saline Flush) 10 ml IV Q8 [facility] Last Admin: 11/29/18 16:09 Dose: 10 ml Documented by: Vancomycin HCl (Vancomycin Per Pharmacy) 1 order IV UD [facility] Zolpidem Tartrate (Ambien) 5 mg PO HSP PRN PRN Reason: Insomnia Medical - PN: A/P - Narrative A/P Narrative: Sepsis/ HCAP pneumonia -IV vanco,cefepime and levofloxacin -Follow blood and cultures, consider de-escalating antibiotics soon if no si gnificant growth -Viral respiratory panel neg. Hypotension -Normally runs low blood pressure on midodrine -Hypertension worsened due to sepsis, though now recovering on 11/29 -Continue midodrine, monitor blood pressure ESRD on HD -Follows with Dr. Chambers -Status post hemodialysis 11/29 -Discussed with Dr. Chambers Thrombocytopenia -Has underlying thrombocytopenia in the 30-40,000 range -No evidence of bleeding currently, no indication for platelet transfusion -Likely worsened secondary to sepsis, platelets 17,000 this morning, had been up to 20,000 -Continue to trend closely -Folate levels are low, peripheral smear is neg for schistocytes, hiv, hep c neg, hep b neg -Vit b12, folate added to his regime Malnutrition severe -Dietary consult, pt on Megace, smokes thc daily. -has chronic diarrhea, was scheduled for Colonoscopy by Dr Kam, also EGD few days from now. Hold off on same for now, Diabetes -not on any meds at home, glucose levels stable, monitor on daily labs for now, no need for ACHS checking or ssi coverage. History of hypertension -Blood pressure low now monitor Anemia of chronic disease/ Renal disease -monitor Hb, send workup if needed, transfuse if < 7, no e/o iron def, may benefit from aranesp-per nephrology Vascular disease/atherosclerosis -resume home meds DVT SCD Full code Medical - PN: Qual - VTE Deep Vein Thrombosis/Pulmonary Embolism Present on Admission: No
[2018-11-29] MEDS ORDERED: SENNOSIDES 1 TABLET PO PRN (21:00)
[2018-11-29] MEDS ORDERED: ZOLPIDEM 5 MG TABLET PO PRN (21:00)
[2018-11-30 05:45] LABS: Basophils # (Auto) 0 K/mcL (0.0-0.3); Basophils % (Auto) 0.2 % (0.0-2.0); Eosinophils # (Auto) 0 K/mcL (0.0-0.7); Eosinophils % (Auto) 0 % (0.0-7.0); Granulocytes % (Auto) 77.5 % (38.0-78.0); Lymphocytes # (Auto) 0.9 K/mcL (1.5-4.8); Lymphocytes % (Auto) 18.7 % (15.5-49.0); Mean Cell Volume 95.3 fL (80.0-100.0); Mean Corpuscular HGB Conc 32.4 g/dL (31.0-36.0); Monocytes # (Auto) 0.2 K/mcL (0.1-0.9); Monocytes % (Auto) 3.6 % (1.0-12.0); Platelet Count 15 K/mcL (140-440); Red Cell Distribution Width 16.3 % (11.5-14.5)
[2018-11-30 06:25] LABS: ALT/SGPT 7 U/l (0-40); Albumin 1.7 gm/dL (3.2-5.2); Albumin/Globulin Ratio 0.5 (1.0-2.3); Alkaline Phosphatase 80 U/L (39-117); Bilirubin,Direct 0.2 mg/dL (0.0-0.3); Blood Urea Nitrogen 17 mg/dl (8-23); Gamma Glutamyl Transpeptidase 16 U/L (8-61); Uric Acid 1.5 mg/dL (2.5-8.0)
[2018-11-30] MEDS: 0.9 % SODIUM CHLORIDE 10 ML SYRINGE IV SCH ×3 (08:32→20:57)
[2018-11-30] MEDS: MIDODRINE 5 MG TABLET PO SCH ×2 (08:32→17:15)
[2018-11-30] MEDS ORDERED: FOLIC ACID/VITAMIN B COMP W-C 1 TAB TABLET PO SCH (09:00)
[2018-11-30] MEDS ORDERED: MEGESTROL ACETATE 400 MG/10 ML ORAL.SUSP PO SCH (09:00)
[2018-11-30] MEDS ORDERED: CEFEPIME 1 GM VIAL IV SCH (09:00)
[2018-11-30] MEDS ORDERED: CYANOCOBALAMIN (VITAMIN B-12) 500 MCG TABLET PO SCH (09:00)
[2018-11-30] MEDS: CIPROFLOXACIN 0.3% OPHTH DROPS BOTTLE OD SCH ×3 (10:43→20:58)
[2018-11-30] MEDS ORDERED: NALOXONE HCL 0.4 MG/ML VIAL IV PRN (14:01)
[2018-11-30] MEDS ORDERED: ACETAMINOPHEN 325 MG TABLET PO PRN (14:01)
[2018-11-30] MEDS ORDERED: SENNOSIDES 1 TABLET PO PRN (14:01)
[2018-11-30] MEDS ORDERED: ONDANSETRON 4 MG/2 ML VIAL IV PRN (14:01)
[2018-11-30] MEDS: ZOLPIDEM 5 MG TABLET PO PRN (21:27)
--- NOTE | 2018-11-30 22:27 | Internal Med Progress Note ---
Medical - PN: Subj Patient information: Note initiated : 11/30/18 at 10:27 pm Service Date, if different from initiated Date: [] Patient: Erwin Gaxiola a 63 y/o M admitted on 11/27/18 for Cough, hx pna, SOB. Chief Complaint: Follow-up pneumonia Interval history: 11/27 Mr. Gaxiola is a 63 year old M with h/o esrd on HD, presents to the ER today accompanied by his daugther for evaluation of shortness of breath and fever The patient notes that his symptoms have been going on for a month, started with a ear infectin, he was sen by ENT and advised to start on antibiotic ear drops. The patient later had cough and shortness of breath, fatigue, decreased appetitie and weight loss. He was seen by his PCP diagnosed as pneumonia and prescribed antibiotics. (keflex?). The patient notes he took his antibiotics, but they got over a week ago, he was relapsing. He became progressively more short of breath, febrile, cough with yellow sputum, chills. He had his HD today, and was febrile and was sent to ER for further evaluation In the ER on presentation, patient had a fever of 102.2, heart rate 104, blood pressure 99 x 63 saturating 91% on room air. WBC count 8.1 hemoglobin 8.5 platelets 23 [is chronically low platelets have been in the 30s and 40s in the past], lactic acid 1.8, sodium 131 potassium 3.3 bicarbonate 33 creatinine 1.9 glucose 76 BNP 7467, Albumin was 2.2. Chest x-ray shows bilateral pneumonia right more than left basilar. Blood cultures were sent, Rocephin and azithromycin was given in the ED. Patient had low blood pressure 80 systolic, and was admitted to PCU for further management 2/ Pt seen examined, overnight was hypotensive with BP in systolic 70's needing fluid bolus, which helped this AM sitting comfortably in chair, no new complaints or concerns, feels better bp stable, 80 systolic, map > 65, resumed home dose of midodrine will continue abx and monitor Hb and platelet are low, likely due to sepsis, will touch base with nephrology to see if this has been worked up 2/ Patient feels much better, breathing improved Discussed with Dr. Chambers Patient with history of thrombocytopenia the [id number] range, likely will need outpatient hematology workup Received hemodialysis today Holding adequate MAP with midodrine 11/30 Continues to feel better, no longer on oxygen. Moved to the floor, blood pressure stable. He is complaining of edema of his right arm and forearm, his fistula is in his right arm. Platelets remain low, 15,000 today. No evidence of bleeding. - Constitutional Vitals: Vital Signs Temp Pulse Resp BP Pulse Ox 97.9 F 82 20 110/71 100 11/30/18 20:00 11/30/18 20:00 11/30/18 20:00 11/30/18 20:00 11/30/18 20:00 Period Temp Pulse Resp BP Sys/William Pulse Ox Last 24 Hr 97.9 F-99.6 F 81-91 16-24 92-110/57-81 92-100 Intake and Output 11/30/18 11/30/18 12/01/18 13:59 21:59 05:59 Intake Total 500 640 Balance 500 640 Weight 111 lb Patient Weight 12/01/18 05:59 Weight 111 lb Intake & Output: Intake & Output 11/30/18 11/30/18 12/01/18 13:59 21:59 05:59 Intake Total 500 640 Balance 500 640 Weight 111 lb Intake: Oral 500 640 Other: Meal Lunch Dinner Percent of Meal Consumed 100% 75% Feeding Ability Independent Stool Size Moderate Smear Stool Color Brown Brown Yellow Stool Consistency Liquid Liquid Watery Loose # Bowel Movements 1 1 # of times incontinent of 1 Bowels Exam: General: Laying in bed, no acute distress Chest: Few basal crackles, otherwise clear Cardiovascular: Regular Abdomen: Soft, nontender Extremities: Right upper extremity with pitting edema, fistula with good thrill and bruit. Neuro: Alert, oriented to person, place and situation, moves all extremities equally. Medical - PN: Obj Da - Labs CBC & Chem 7: 11/30/18 03:35 11/30/18 03:35 Labs: Abnormal Lab Results 11/30/18 11/30/18 11/29/18 03:35 03:35 03:40 RBC 2.50 L Hgb 7.7 L Hct 23.8 L RDW 16.3 H Plt Count 15 L* Gran % Lymph % (Auto) Lymph # (Auto) 0.9 L Sodium 127 L Potassium 3.0 L Chloride 90 L Anion Gap BUN 38 H Creatinine 2.6 H 3.4 H Glucose 117 H 108 H Uric Acid 1.5 L 2.2 L Calcium 6.9 L 7.1 L Phosphorus 1.9 L Iron TIBC Unsat Iron Binding Ferritin Direct Bilirubin Total Protein 5.3 L 5.3 L Albumin 1.7 L 1.8 L Albumin/Globulin Ratio 0.5 L 0.5 L 11/29/18 11/28/18 11/28/18 03:40 08:47 04:10 RBC 2.64 L Hgb 8.3 L Hct 25.1 L RDW 15.8 H Plt Count 17 L* Gran % 82.5 H Lymph % (Auto) 14.3 L Lymph # (Auto) 1.0 L Sodium 131 L Potassium 3.2 L Chloride 94 L Anion Gap 7.0 L BUN 28 H Creatinine 2.5 H Glucose 57 L Uric Acid 1.4 L Calcium 7.0 L Phosphorus 1.4 L Iron 46 L TIBC 113 L Unsat Iron Binding 67 L Ferritin 790.9 H Direct Bilirubin 0.4 H Total Protein 5.0 L Albumin 1.7 L Albumin/Globulin Ratio 0.5 L 11/28/18 04:10 RBC 2.45 L Hgb 7.7 L Hct 23.6 L RDW 16.1 H Plt Count 19 L* Gran % 80.3 H Lymph % (Auto) 15.1 L Lymph # (Auto) 0.8 L Sodium Potassium Chloride Anion Gap BUN Creatinine Glucose Uric Acid Calcium Phosphorus Iron TIBC Unsat Iron Binding Ferritin Direct Bilirubin Total Protein Albumin Albumin/Globulin Ratio Meds: Medications Acetaminophen (Tylenol) 650 mg PO Q4-6HP PRN PRN Reason: PAIN/FEVER > 101 Ciprofloxacin (Ciloxan 0.3% Ophth Drops) 5 gtt OD TID [facility]PL[facility] Last Admin: 11/30/18 20:58 Dose: 5 gtt Documented by: Cyanocobalamin (Vitamin B-12) 1,000 mcg PO DAILY [facility] Levofloxacin (Levaquin) 500 mg in 100 mls @ 100 mls/hr IV Q48H [facility] Loperamide HCl (Imodium) 2 mg PO UD PRN PRN Reason: Diarrhea Megestrol Acetate (Megace) 40 mg PO DAILY [facility] Midodrine (Midodrine Hcl) 5 mg PO BID@0800,1700 RE[facility]AC[facility] Last Admin: 11/30/18 17:15 Dose: 5 mg Documented by: Multivit/Ca Carb/B Cmplx/FA/Prenat (Diatx) 1 tab PO DAILY [facility] Naloxone HCl (Narcan) 0.1 mg IV Q2MIN PRN PRN Reason: Opiate Reversal Ondansetron HCl (Zofran) 4 mg IV Q4-6HP PRN PRN Reason: Nausea And Vomiting Senna (Senokot) 1 tab PO HSP PRN PRN Reason: Constipation Sodium Chloride (Saline Flush) 10 ml IV Q8 [facility] Last Admin: 11/30/18 20:57 Dose: 10 ml Documented by: Zolpidem Tartrate (Ambien) 5 mg PO HSP PRN PRN Reason: Insomnia Last Admin: 11/30/18 21:27 Dose: 5 mg Documented by: Medical - PN: A/P - Narrative A/P Narrative: Sepsis/ HCAP pneumonia -Cefepime stopped, remains on vancomycin and levofloxacin. -Follow blood and cultures, consider de-escalating antibiotics further if no significant growth -Viral respiratory panel neg. Hypotension -Normally runs low blood pressure on midodrine -Hypertension worsened due to sepsis, though now recovering on 11/29 and 11/30 -Continue midodrine, monitor blood pressure ESRD on HD -Follows with Dr. Chambers -Status post hemodialysis 11/29 -Edema of right extremity with fistula. We'll reevaluate tomorrow, discuss with nephrology Thrombocytopenia -Has underlying thrombocytopenia in the 30-40,000 range -No evidence of bleeding currently, no indication for platelet transfusion -Likely worsened secondary to sepsis, platelets 15,000 this morning, had been up to 20,000 -Continue to trend closely -Folate levels are low, peripheral smear is neg for schistocytes, hiv, hep c neg, hep b neg -Vit b12, folate added to his regime Malnutrition severe -Dietary consult, pt on Megace, smokes thc daily. -has chronic diarrhea, was scheduled for Colonoscopy by Dr Kam, also EGD few days from now. Hold off on same for now, Diabetes -not on any meds at home, glucose levels stable, monitor on daily labs for now, no need for ACHS checking or ssi coverage. History of hypertension -Blood pressure low now monitor Anemia of chronic disease/ Renal disease -monitor Hb, send workup if needed, transfuse if < 7, no e/o iron def, may benefit from aranesp-per nephrology Vascular disease/atherosclerosis -resume home meds DVT SCD Full code Medical - PN: Qual - VTE Deep Vein Thrombosis/Pulmonary Embolism Present on Admission: No
[2018-12-01] MEDS: 0.9 % SODIUM CHLORIDE 10 ML SYRINGE IV SCH ×4 (03:47→20:53)
[2018-12-01 06:26] LABS: Basophils # (Auto) 0 K/mcL (0.0-0.3); Basophils % (Auto) 0.4 % (0.0-2.0); Eosinophils # (Auto) 0 K/mcL (0.0-0.7); Eosinophils % (Auto) 0.8 % (0.0-7.0); Granulocytes % (Auto) 64.2 % (38.0-78.0); Lymphocytes # (Auto) 1.3 K/mcL (1.5-4.8); Lymphocytes % (Auto) 30.2 % (15.5-49.0); Mean Cell Volume 94.5 fL (80.0-100.0); Mean Corpuscular HGB Conc 33.9 g/dL (31.0-36.0); Monocytes # (Auto) 0.2 K/mcL (0.1-0.9); Monocytes % (Auto) 4.4 % (1.0-12.0); Platelet Count 15 K/mcL (140-440); RBC 2.44 M/mcL (4.50-5.90); Red Cell Distribution Width 15.5 % (11.5-14.5)
[2018-12-01 06:56] LABS: ALT/SGPT 7 U/l (0-40); Albumin 1.9 gm/dL (3.2-5.2); Albumin/Globulin Ratio 0.5 (1.0-2.3); Alkaline Phosphatase 83 U/L (39-117); Bilirubin,Direct 0.2 mg/dL (0.0-0.3); Blood Urea Nitrogen 23 mg/dl (8-23); Gamma Glutamyl Transpeptidase 17 U/L (8-61); Uric Acid 2.7 mg/dL (2.5-8.0)
[2018-12-01] MEDS: FOLIC ACID/VITAMIN B COMP W-C 1 TAB TABLET PO SCH (09:03)
[2018-12-01] MEDS: CYANOCOBALAMIN (VITAMIN B-12) 500 MCG TABLET PO SCH (09:03)
[2018-12-01] MEDS: MIDODRINE 5 MG TABLET PO SCH ×2 (09:03→16:27)
[2018-12-01] MEDS: CIPROFLOXACIN 0.3% OPHTH DROPS BOTTLE OD SCH ×3 (09:03→20:53)
[2018-12-01] MEDS: MEGESTROL ACETATE 400 MG/10 ML ORAL.SUSP PO SCH (09:04)
[2018-12-01] MEDS ORDERED: LEVOFLOXACIN 500 MG/100 ML BAG IV SCH (10:00)
--- NOTE | 2018-12-01 13:54 | Nephrology Progress Note ---
Subjective Patient information: Note initiated : 12/01/18 at 1:52 pm Service Date, if different from initiated Date: [] Patient: Erwin Gaxiola 63 y/o M admitted on 11/27/18 for Cough, hx pna, SOB. Chief Complaint: [] Feels a lot better. Cough is better. Eating more. Has more edema of right arm. Objective - Vital Signs Vital signs: Vital Signs Temp Pulse Pulse Pulse Resp BP BP 12/01/18 13:35 87 130/81 12/01/18 13:20 85 125/77 12/01/18 13:05 85 121/78 12/01/18 12:50 80 124/79 12/01/18 12:35 80 122/78 12/01/18 12:20 80 100/68 12/01/18 12:05 80 119/77 12/01/18 12:00 96 F L 79 18 125/75 12/01/18 11:45 96.0 F L 80 125/75 12/01/18 07:55 80 16 12/01/18 07:49 96.8 F L 16 118/60 12/01/18 03:46 97.2 F 76 16 127/71 12/01/18 00:00 99.1 F H 78 16 11/30/18 20:00 97.9 F 82 20 11/30/18 16:00 98.2 F 91 H 20 BP Pulse Ox 12/01/18 13:35 12/01/18 13:20 12/01/18 13:05 12/01/18 12:50 12/01/18 12:35 12/01/18 12:20 12/01/18 12:05 12/01/18 12:00 98 12/01/18 11:45 12/01/18 07:55 99 12/01/18 07:49 12/01/18 03:46 96 12/01/18 00:00 114/70 99 11/30/18 20:00 110/71 100 11/30/18 16:00 110/81 92 Intake and Output 11/30/18 12/01/18 12/01/18 21:59 05:59 13:59 Intake Total 640 100 Output Total 1 Balance 640 99 Intake: Oral 640 100 Output: # of times incontinent of urine 1 Other: Meal Dinner Percent of Meal Consumed 75% Stool Size Moderate Small Moderate Stool Color Brown Brown Yellow Stool Consistency Liquid Liquid Loose Loose Loose # Bowel Movements 1 1 # of times incontinent of 1 Bowels Weight 111 lb Intake & Output: Intake & Output 11/30/18 12/01/18 12/01/18 21:59 05:59 13:59 Intake Total 640 100 Output Total 1 Balance 640 99 Weight 111 lb Intake: Oral 640 100 Output: # of times incontinent of urine 1 Other: Meal Dinner Percent of Meal Consumed 75% Stool Size Moderate Small Moderate Stool Color Brown Brown Yellow Stool Consistency Liquid Liquid Loose Loose Loose # Bowel Movements 1 1 # of times incontinent of 1 Bowels - General Appearance General appearance: cachectic EENT: ATNC Neck: no JVD Respiratory: kyphosis Cardiology: no murmurs Gastrointestinal: normoactive bowel sounds Neurologic: no focal deficit - Lab 12/01/18 03:58 12/01/18 03:58 Most recent lab results Calcium 7.0 mg/dl (8.6-10.4) L 12/01/18 03:58 Phosphorus 2.5 mg/dL (2.7-4.5) L 12/01/18 03:58 Magnesium 1.9 mg/dL (1.6-2.5) 12/01/18 03:58 Assessment and Plan (1) ESRD (end stage renal disease) on dialysis Status: Acute Comment: dialysis today. Doing well. Will take out a liter of fluid. Pneumonia. On antibiotics. Low cell count. agree will need bone marrow as outpatient. Right arm swelling. Check US of the fistula.
--- NOTE | 2018-12-01 14:33 | Internal Med Progress Note ---
Medical - PN: Subj Patient information: Note initiated : 12/01/18 at 2:30 pm Service Date, if different from initiated Date: [] Patient: Erwin Gaxoila a 63 y/o M admitted on 11/27/18 for Cough, hx pna, SOB. Chief Complaint: [] Interval history: 11/27 Mr. Gaxiola is a 63 year old M with h/o esrd on HD, presents to the ER today accompanied by his daugther for evaluation of shortness of breath and fever The patient notes that his symptoms have been going on for a month, started with a ear infectin, he was sen by ENT and advised to start on antibiotic ear drops. The patient later had cough and shortness of breath, fatigue, decreased appetitie and weight loss. He was seen by his PCP diagnosed as pneumonia and prescribed antibiotics. (keflex?). The patient notes he took his antibiotics, but they got over a week ago, he was relapsing. He became progressively more short of breath, febrile, cough with yellow sputum, chills. He had his HD today, and was febrile and was sent to ER for further evaluation In the ER on presentation, patient had a fever of 102.2, heart rate 104, blood pressure 99 x 63 saturating 91% on room air. WBC count 8.1 hemoglobin 8.5 platelets 23 [is chronically low platelets have been in the 30s and 40s in the past], lactic acid 1.8, sodium 131 potassium 3.3 bicarbonate 33 creatinine 1.9 glucose 76 BNP 7467, Albumin was 2.2. Chest x-ray shows bilateral pneumonia right more than left basilar. Blood cultures were sent, Rocephin and azithromycin was given in the ED. Patient had low blood pressure 80 systolic, and was admitted to PCU for further management 2/ Pt seen examined, overnight was hypotensive with BP in systolic 70's needing fluid bolus, which helped this AM sitting comfortably in chair, no new complaints or concerns, feels better bp stable, 80 systolic, map > 65, resumed home dose of midodrine will continue abx and monitor Hb and platelet are low, likely due to sepsis, will touch base with nephrology to see if this has been worked up / Patient feels much better, breathing improved Discussed with Dr. Chambers Patient with history of thrombocytopenia the [id number] range, likely will need outpatient hematology workup Received hemodialysis today Holding adequate MAP with midodrine 2/7 Continues to feel better, no longer on oxygen. Moved to the floor, blood pressure stable. He is complaining of edema of his right arm and forearm, his fistula is in his r ight arm. Platelets remain low, 15,000 today. No evidence of bleeding. 12/01-patient doing well and underwent hemodialysis. Right arm swelling persistent since admission. Ultrasound hemodialysis access ordered by nephrology. Denies fever pain or limb threatening symptoms. Continue existing treatment. - Constitutional Vitals: Vital Signs Temp Pulse Resp BP Pulse Ox 96 F L 88 18 120/78 98 12/01/18 12:00 12/01/18 14:20 12/01/18 12:00 12/01/18 14:20 12/01/18 12:00 Period Temp Pulse Resp BP Sys/William Pulse Ox Last 24 Hr 96 F-99.1 F 76-91 16-20 100-130/60-81 92-100 Intake and Output 12/01/18 12/01/18 12/01/18 05:59 13:59 21:59 Intake Total 100 Output Total 1 Balance 99 Weight 111 lb Patient Weight 12/02/18 05:59 Weight 111 lb Intake & Output: Intake & Output 12/01/18 12/01/18 12/01/18 05:59 13:59 21:59 Intake Total 100 Output Total 1 Balance 99 Weight 111 lb Intake: Oral 100 Output: # of times incontinent of urine 1 Other: Stool Size Small Moderate Stool Color Brown Yellow Stool Consistency Liquid Loose Loose # Bowel Movements 1 # of times incontinent of 1 Bowels General appearance: no acute distress Exam: Right upper extremity swollen all the way to shoulder Hemodialysis ongoing fistula right elbow Alert oriented No labored breathing Medical - PN: Obj Da - Labs CBC & Chem 7: 12/01/18 03:58 12/01/18 03:58 Labs: Abnormal Lab Results 12/01/18 12/01/18 11/30/18 03:58 03:58 03:35 WBC 4.4 L RBC 2.44 L Hgb 7.8 L Hct 23.0 L RDW 15.5 H Plt Count 15 L* Gran % Lymph % (Auto) Lymph # (Auto) 1.3 L Sodium Potassium 3.0 L 3.0 L Chloride BUN Creatinine 3.7 H 2.6 H Glucose 117 H Uric Acid 1.5 L Calcium 7.0 L 6.9 L Phosphorus 2.5 L 1.9 L Total Protein 5.4 L 5.3 L Albumin 1.9 L 1.7 L Albumin/Globulin Ratio 0.5 L 0.5 L 11/30/18 11/29/18 11/29/18 03:35 03:40 03:40 WBC RBC 2.50 L 2.64 L Hgb 7.7 L 8.3 L Hct 23.8 L 25.1 L RDW 16.3 H 15.8 H Plt Count 15 L* 17 L* Gran % 82.5 H Lymph % (Auto) 14.3 L Lymph # (Auto) 0.9 L 1.0 L Sodium 127 L Potassium Chloride 90 L BUN 38 H Creatinine 3.4 H Glucose 108 H Uric Acid 2.2 L Calcium 7.1 L Phosphorus Total Protein 5.3 L Albumin 1.8 L Albumin/Globulin Ratio 0.5 L Meds: Medications Acetaminophen (Tylenol) 650 mg PO Q4-6HP PRN PRN Reason: PAIN/FEVER > 101 Ciprofloxacin (Ciloxan 0.3% Ophth Drops) 5 gtt OD TID [facility] Last Admin: 12/01/18 09:03 Dose: 5 gtt Documented by: Cyanocobalamin (Vitamin B-12) 1,000 mcg PO DAILY [facility] Last Admin: 12/01/18 09:03 Dose: 1,000 mcg Documented by: Levofloxacin (Levaquin) 500 mg in 100 mls @ 100 mls/hr IV Q48H [facility] Loperamide HCl (Imodium) 2 mg PO UD PRN PRN Reason: Diarrhea Megestrol Acetate (Megace) 40 mg PO DAILY [facility] Last Admin: 12/01/18 09:04 Dose: 40 mg Documented by: Midodrine (Midodrine Hcl) 5 mg PO BID@0800,1700 [facility] Last Admin: 12/01/18 09:03 Dose: 5 mg Documented by: Multivit/Ca Carb/B Cmplx/FA/Prenat (Diatx) 1 tab PO DAILY [facility] Last Admin: 12/01/18 09:03 Dose: 1 tab Documented by: Naloxone HCl (Narcan) 0.1 mg IV Q2MIN PRN PRN Reason: Opiate Reversal Ondansetron HCl (Zofran) 4 mg IV Q4-6HP PRN PRN Reason: Nausea And Vomiting Senna (Senokot) 1 tab PO HSP PRN PRN Reason: Constipation Sodium Chloride (Saline Flush) 10 ml IV Q8 [facility] Last Admin: 12/01/18 05:23 Dose: Not Given Documented by: Zolpidem Tartrate (Ambien) 5 mg PO HSP PRN PRN Reason: Insomnia Last Admin: 11/30/18 21:27 Dose: 5 mg Documented by: Medical - PN: A/P - Time Spent With Patient Total time spent is greater than 50% in coordination of care (as documented) at patient's floor/unit and/or counseling patient: 25 - 35 minutes (1) Pneumonia Status: Acute Assessment and plan: Sepsis/ HCAP pneumonia -Cefepime stopped, remains on vancomycin and levofloxacin. Blood cultures negative till date. -consider de-escalating antibiotics in 48 hours -Viral respiratory panel neg. Hypotension -Normally runs low blood pressure on midodrine, worsened due to sepsis, much improved now -Continue midodrine, monitor blood pressure ESRD on HD -Follows with Dr. Chambers -Status post hemodialysis 2/ -Edema of right extremity with fistula. We'll reevaluate tomorrow, discuss with nephrology Thrombocytopenia -Has underlying thrombocytopenia in the 30-40,000 range -No evidence of bleeding currently, no indication for platelet transfusion -Likely worsened secondary to sepsis, platelets around 15,000 -Continue to trend closely -Folate levels are low, peripheral smear is neg for schistocytes, hiv, hep c neg, hep b neg -Vit b12, folate added to his regime Malnutrition severe -Dietary consult, pt on Megace, smokes thc daily. -has chronic diarrhea, was scheduled for Colonoscopy by Dr Kam, also EGD few days from now. Hold off on same for now, Diabetes -not on any meds at home, glucose levels stable, monitor on daily labs for now, no need for ACHS checking or ssi coverage. History of hypertension -Currently blood pressures at goal Anemia of chronic disease/ Renal disease -monitor Hb, send workup if needed, transfuse if < 7, no e/o iron def, may benefit from aranesp-per nephrology Vascular disease/atherosclerosis -resume home meds DVT SCD Full code Current Visit: Yes Medical - PN: Qual - VTE Deep Vein Thrombosis/Pulmonary Embolism Present on Admission: No
[2018-12-01] MEDS: LOPERAMIDE 2 MG CAPSULE PO PRN (16:26)
[2018-12-01] MEDS: ZOLPIDEM 5 MG TABLET PO PRN (20:53)
[2018-12-02 06:18] LABS: Basophils # (Auto) 0 K/mcL (0.0-0.3); Basophils % (Auto) 0.4 % (0.0-2.0); Eosinophils # (Auto) 0 K/mcL (0.0-0.7); Eosinophils % (Auto) 0.7 % (0.0-7.0); Granulocytes % (Auto) 63.7 % (38.0-78.0); Lymphocytes # (Auto) 1.2 K/mcL (1.5-4.8); Lymphocytes % (Auto) 30.4 % (15.5-49.0); Mean Cell Volume 94.1 fL (80.0-100.0); Mean Corpuscular HGB Conc 32.4 g/dL (31.0-36.0); Monocytes # (Auto) 0.2 K/mcL (0.1-0.9); Monocytes % (Auto) 4.8 % (1.0-12.0); Platelet Count 20 K/mcL (140-440); RBC 2.53 M/mcL (4.50-5.90); Red Cell Distribution Width 15.4 % (11.5-14.5)
[2018-12-02 06:32] LABS: ALT/SGPT 8 U/l (0-40); Albumin 1.7 gm/dL (3.2-5.2); Albumin/Globulin Ratio 0.4 (1.0-2.3); Alkaline Phosphatase 67 U/L (39-117); Bilirubin,Direct 0.2 mg/dL (0.0-0.3); Blood Urea Nitrogen 22 mg/dl (8-23); Gamma Glutamyl Transpeptidase 18 U/L (8-61); Uric Acid 1.7 mg/dL (2.5-8.0)
[2018-12-02] MEDS: LOPERAMIDE 2 MG CAPSULE PO PRN ×3 (08:37→12:54)
[2018-12-02] MEDS: CYANOCOBALAMIN (VITAMIN B-12) 500 MCG TABLET PO SCH (08:38)
[2018-12-02] MEDS: FOLIC ACID/VITAMIN B COMP W-C 1 TAB TABLET PO SCH (08:38)
[2018-12-02] MEDS: MEGESTROL ACETATE 400 MG/10 ML ORAL.SUSP PO SCH (08:38)
[2018-12-02] MEDS: MIDODRINE 5 MG TABLET PO SCH (08:38)
[2018-12-02] MEDS: 0.9 % SODIUM CHLORIDE 10 ML SYRINGE IV SCH (08:38)
--- NOTE | 2018-12-02 09:26 | Ultrasound Report ---
History: Renal dialysis patient with swollen right arm FINDINGS: There is a surgically created fistula between the distal portion of the right brachial artery and the cephalic vein, above the level of the elbow. There is no stenosis at the fistula. In the mid arm the brachial artery has a flow velocity of 146 cm/s. Distal arm is one 56 cm/s. Just above the fistula is 200 cm/s and distal to the fistula it is 12 centimeters per second. Distal to the fistula there are dampened waveform patterns in the brachial artery. At the origin of the fistula the flow velocity is 249 cm/s and the vessel is 8.5 mm in diameter. At the mid fistula, the peak systolic flow velocity is 439 cm/s and the lumen is 4.1 mm. In the distal fistula it measures 493 cm/s and the vessel is 4.7 mm. Above the fistula in the lower portion of the cephalic vein the flow velocity is 125 cm/s. In the midportion of the upper arm the flow velocity is 16 cm/s and in the proximal portion of the upper arm the cephalic vein flow velocity is 31 cm/s. At the shoulder it is 47 cm/s. IMPRESSION: Patent AV fistula in the right upper arm between the brachial artery and cephalic vein. Stenosis of the brachial artery just below the level of the fistula. Interpreted and Authenticated by: Surendra Iyer 12/02/18
[2018-12-02] MEDS: CIPROFLOXACIN 0.3% OPHTH DROPS BOTTLE OD SCH (10:44)
--- NOTE | 2018-12-02 14:17 | Discharge Summary ---
Medical - DS: Prov Patient information: Note initiated : 12/02/18 at 2:13 pm Service Date, if different from initiated Date: [] Patient: Erwin Gaxiola a 63 y/o M admitted on 11/27/18 for Cough, hx pna, SOB. Chief Complaint: [] Date of admission: 11/27/18 16:02 Discharge date: 12/02/18 Primary care physician: Erwin Fuentes Consults: 11/27/18 Consult to Physician [CONS] Stat Comment: Consulting Provider: Narendra Chambers Reason For Exam: Physician to Consult Consult to Physician [CONS] Stat Comment: Consulting Provider: Mirna Louie Reason For Exam: Physician to Consult Medical - DS: Meds - Discharge Medications Prescriptions: Levofloxacin [Levaquin] 750 mg PO Q48 #2 tablet Active and Home Medications: Home Medications Loperamide HCl [Loperamide] 4 mg PO PRN PRN MDD 16 mg 11/27/18 [History Confirmed 11/27/18 Last Taken Unknown] Megestrol Acetate [Megace] 40 mg PO DAILY 11/27/18 [History Confirmed 11/27/18 Last Taken Unknown] Midodrine [Midodrine HCl] 5 mg PO BID 11/27/18 [History Confirmed 11/27/18 Last Taken Unknown] Levofloxacin [Levaquin] 750 mg PO Q48 #2 tablet 12/02/18 [Rx Last Taken Unknown] Medical - DS: Hosp Hospital course: Discharge diagnosis Sepsis/ HCAP pneumonia-clinically resolved. Discharging today.Continue additional 2 days of levofloxacin blood cultures negative till date. Hypotension-continue midodrine ESRD on HD-Follows with Dr. Chambers. Continue scheduled hemodialysis Edema of right extremity with fistula. Ultrasound right upper extremity/fistula negative for clot Thrombocytopenia -Has underlying thrombocytopenia in the 30-40,000 range -No evidence of bleeding currently, no indication for platelet transfusion. Continue outpatient follow-up Malnutrition severe-continue appetite stimulant. has chronic diarrhea, was scheduled for Colonoscopy by Dr Kam, also EGD few days from now. Diabetes-diet controlled Anemia of chronic disease/ Renal disease-continue follow-up with nephrology Brief hospital course 11/27 Mr. Gaxiola is a 63 year old M with h/o esrd on HD, presents to the ER today accompanied by his daugther for evaluation of shortness of breath and fever The patient notes that his symptoms have been going on for a month, started with a ear infectin, he was sen by ENT and advised to start on antibiotic ear drops. The patient later had cough and shortness of breath, fatigue, decreased appetitie and weight loss. He was seen by his PCP diagnosed as pneumonia and prescribed antibiotics. (keflex?). The patient notes he took his antibiotics, but they got over a week ago, he was relapsing. He became progressively more short of breath, febrile, cough with yellow sputum, chills. He had his HD today, and was febrile and was sent to ER for further evaluation In the ER on presentation, patient had a fever of 102.2, heart rate 104, blood pressure 99 x 63 saturating 91% on room air. WBC count 8.1 hemoglobin 8.5 platelets 23 [is chronically low platelets have been in the 30s and 40s in the past], lactic acid 1.8, sodium 131 potassium 3.3 bicarbonate 33 creatinine 1.9 glucose 76 BNP 7467, Albumin was 2.2. Chest x-ray shows bilateral pneumonia right more than left basilar. Blood cultures were sent, Rocephin and azithromycin was given in the ED. Patient had low blood pressure 80 systolic, and was admitted to PCU for further management 11/28 Pt seen examined, overnight was hypotensive with BP in systolic 70's needing fluid bolus, which helped this AM sitting comfortably in chair, no new complaints or concerns, feels better bp stable, 80 systolic, map > 65, resumed home dose of midodrine will continue abx and monitor Hb and platelet are low, likely due to sepsis, will touch base with nephrology to see if this has been worked up 11/29 Patient feels much better, breathing improved Discussed with Dr. Chambers Patient with history of thrombocytopenia the [id number] range, likely will need outpatient hematology workup Received hemodialysis today Holding adequate MAP with midodrine 11/30 Continues to feel better, no longer on oxygen. Moved to the floor, blood pressure stable. He is complaining of edema of his right arm and forearm, his fistula is in his right arm. Platelets remain low, 15,000 today. No evidence of bleeding. 12/01-patient doing well and underwent hemodialysis. Right arm swelling persistent since admission. Ultrasound hemodialysis access ordered by nephrology. Denies fever pain or limb threatening symptoms. Continue existing treatment. 12/02-patient doing well. No overnight event. I down swelling improved however ultrasound no evidence of thrombosis. Discharging additional 2 days levofloxacin. Will follow up with Dr. Chambers nephrology for scheduled outpatient dialysis Discharge diagnosis: . - Time Spent with Patient Total time spent providing and/or coordinating discharge services: Greater than 30 minutes Medical - DS: Exam - Constitutional Vitals: Vital Signs Temp Pulse Pulse Resp BP BP Pulse Ox 12/02/18 12:00 97.3 F 20 116/74 97 12/02/18 07:27 98.4 F 20 112/64 96 12/02/18 03:35 98.7 F 79 16 110/68 95 12/02/18 00:00 98.5 F 76 20 114/71 99 12/01/18 19:25 99.3 F H 85 20 107/68 96 12/01/18 15:56 98.5 F 20 107/65 92 12/01/18 15:35 90 112/73 12/01/18 15:20 98.5 F 92 H 119/79 12/01/18 15:05 97 H 107/69 12/01/18 14:50 88 123/81 12/01/18 14:35 87 119/77 12/01/18 14:20 88 120/78 Intake and Output 12/02/18 12/02/18 12/02/18 05:59 13:59 21:59 Intake Total 150 Output Total 0 Balance 150 Intake: Oral 150 Output: Void Amount 0 Other: Weight 110 lb 8 oz Medical - DS: Data Labs on day of discharge: Labs from last 24 hours 12/02/18 12/02/18 11/27/18 04:20 04:20 18:40 WBC 4.1 L RBC 2.53 L Hgb 7.7 L Hct 23.8 L MCV 94.1 MCH 30.5 MCHC 32.4 RDW 15.4 H Plt Count 20 L* MPV 10.1 Gran % 63.7 Lymph % (Auto) 30.4 [place] % (Auto) 4.8 Eos % (Auto) 0.7 Baso % (Auto) 0.4 Gran # 2.6 Lymph # (Auto) 1.2 L [place] # (Auto) 0.2 Eos # (Auto) 0 Baso # (Auto) 0 Sodium 136 Potassium 3.2 L Chloride 100 Carbon Dioxide 29 Anion Gap 7.0 L BUN 22 Creatinine 2.5 H GFR Calculation 27 Glucose 85 Uric Acid 1.7 L Calcium 7.0 L Phosphorus 2.3 L Magnesium 1.7 Total Bilirubin 0.5 Direct Bilirubin 0.2 GGT 18 AST 19 ALT 8 Alkaline Phosphatase 67 Lactate Dehydrogenase 130 Total Protein 5.7 L Albumin 1.7 L Globulin 4.0 H Albumin/Globulin Ratio 0.4 L Triglycerides 50 Methylmalonic Acid 544 H Preliminary micro results at discharge 12/01/18 09:00 Sputum Culture - Preliminary Sputum - Expectorated Jane albicans 11/27/18 13:45 Blood Culture - Preliminary Blood Medical - DS: A/P - Patient/Caregiver Discharge Instructions Activity: increase activity as tolerated Diet: Renal/Consistent Carbs Additional Instructions: Continue hemodialysis as per nephrology Continue additional 2 days levofloxacin Return to ER if worsening shortness of breath fever chills Reviewed risk and side effect profile of antibiotic including diarrhea/C. difficile. Complications can be minimized with close follow-up with PCP/monitoring for adverse reactions. Renal/CCD diet Activity as tolerated Prescriptions: Levofloxacin [Levaquin] 750 mg PO Q48 #2 tablet - Follow up Plan Follow up with: Erwin Fuentes MD [Primary Care Provider] - Disposition: Home, Self-Care Prognosis: Fair Rehab Potential: Fair I certify that the patient requires SNF services: No Overall status at discharge: patient is progressing back to baseline Medical - DS: Qual - VTE Deep Vein Thrombosis/Pulmonary Embolism Present on Admission: No
== END 2018-12-02 15:15 | disposition home or self-care (01) | DRG 871 ==
LOC: ED 12:42 → ICU 16:00 → MEDSUR 11-30 13:50
PROVIDERS: ADMIT Internal Medicine; ATTEND Internal Medicine

== ENCOUNTER 2019-01-09 12:06 | Inpatient (IN) ==
--- NOTE | 2019-01-09 12:59 | Emergency Department Note ---
General Adult HPI - General Chief complaint: Shortness of Breath/Dyspnea Stated complaint: cough, short of breath Time Seen by Provider: 01/09/19 12:10 Source: patient Mode of arrival: ambulatory Limitations: no limitations - History of Present Illness HPI Narrative: This 63 this 63-year-old with dialysis for end-stage renal disease probably due to previous diabetes presents with anorexia, dizziness, low energy. His daughter Daxa reports that he cannot hardly even walk from the bed to the kitchen without being so severely dizzy. He had dialysis yesterday but had to be given liquids before hand. Dr. Chambers is his mortgage branch manager. Family could not find some of his medications in his room. He apparently hides them or does not take them and does not want to take them. He consistently takes Imodium to prevent diarrhea. He had an appointment to see a GI doctor yesterday but had a previous fall and was unable to get to that appointment. He has been getting help from his family "only when I need it". He has had poor appetite and he has lost weight. He has been in the range of 105-110 according to family in the last 6 months or so but most recently has further lost weight. 6 weeks ago was here and admitted because of the pneumonia. He took all of his antibiotic. In the past week and a half he has been radically some with some phlegm production with some fevers and chills. He has occasional sweats. REVIEW OF SYSTEMS: Denies chest pain Is short of breath. He does not use oxygen at home. No nausea or vomiting. Has chronic diarrhea of uncertain etiology. No back pain No headache Some chronic anxiety. Denies depression. - Related Data Home Medications Medication Instructions Recorded Confirmed Loperamide HCl [Loperamide] 4 mg PO PRN PRN MDD 16 mg 11/27/18 12/29/18 Megestrol Acetate [Megace] 40 mg PO DAILY 11/27/18 12/29/18 Midodrine [Midodrine HCl] 5 mg PO BID 11/27/18 12/29/18 calcium acetate 667 mg capsule 667 mg PO TID cap 12/29/18 12/29/18 sevelamer carbonate 800 mg tablet 1,600 mg PO TID tab 12/29/18 12/29/18 Previous Rx's Medication Instructions Recorded Levofloxacin [Levaquin] 750 mg PO Q48 #2 tab 12/02/18 Allergies Allergy/AdvReac Type Severity Reaction Status Date / Time No Known Drug Allergies Allergy Verified 01/09/19 12:09 Past Medical History - Past Medical History [facility] Narrative: Medical History (Last Updated 01/09/19 @ 12:19 by Colt Alves DO) Diabetes mellitus with ESRD (end-stage renal disease) (Chronic) Diabetes mellitus (Chronic) Venous stasis ulcer (Chronic) Diarrhea (Chronic) Leukocytosis (Chronic) Hypoglycemia (Chronic) Cachexia (Chronic) Weight loss (Chronic) Hypotension (Chronic) Foot ulcer (Chronic) Corneal opacity (Chronic) Onychomycosis (Chronic) Hepatitis C antibody test positive (Chronic) Astigmatism (Chronic) Hypermetropia (Chronic) Myopia (Chronic) Epiretinal membrane (Chronic) Tympanic membrane perforation (Chronic) Stiffness of right hand joint (Chronic) Presbyopia (Chronic) Osteomyelitis (Resolved) Pneumonia (Resolved) Septic arthritis (Resolved) Septic arthritis of ankle or foot (Resolved) Chronic thrombocytopenia Chronic anemia (of CKD probably) Past Surgical History (Last Updated 01/09/19 @ 13:06 by Colt Alves DO) S/P cataract extraction (Acute) S/P cholecystectomy (Acute) S/P tonsillectomy (Acute) History of cardiac cath (Chronic) History of colonoscopy (Chronic ~02/2011) Family History (Last Updated 12/29/18 @ 13:18 by Angelia Douglas) Other No pertinent family history Medical history: Reports: other (Patient has a history of chronic renal failure and currently on dialysis, history of hepatitis, peripheral neuropathy,). Denies: CHF, CVA, DVT, hyperlipidemia, myocardial infarction, pulmonary embolus, TIA Surgical history ED: Reports: other (Cataract, tonsillectomy, cholecystectomy,) - Social History smoking status: Former smoker Alcohol use: Reports: None Drug use: Reports: none, marijuana (Daily in the past) Physical Exam Limitations: no limitations General appearance: alert, cachectic, in no apparent distress Head: atraumatic, normocephalic Eye: Present: EOMI Neck: Present: trachea midline. Absent: lymphadenopathy, thyromegaly Chest: Present: symmetric chest wall rise Respiratory: Present: rales/crackles (Trace fine crackles in the bases). Absent: respiratory distress, wheezes, stridor, accessory muscle use, prolonged expiratory phase Cardiovascular: Present: regular rate, normal rhythm. Absent: systolic murmur, diastolic murmur Abdominal: Present: soft, other (Very scaphoid configuration). Absent: distention, tenderness, guarding, rebound, rigidity, organomegaly, mass Extremities: Present: other (Very atrophied muscles of the lower extremities). Absent: pedal edema, pretibial edema, calf tenderness Neurological: Present: alert, oriented X3 Psychiatric: Present: normal affect, normal mood Skin: Present: warm, dry Course Vital Signs Temperature 97.8 F 01/09/19 12:07 Pulse Rate 90 01/09/19 12:07 Respiratory Rate 18 01/09/19 12:07 Blood Pressure 71/44 01/09/19 12:07 Pulse Oximetry (%) 84 L 01/09/19 12:07 Temperature 97.8 F 01/09/19 12:07 Pulse Rate 79 01/09/19 14:59 Respiratory Rate 21 01/09/19 14:59 Blood Pressure 84/53 01/09/19 14:45 Pulse Oximetry (%) 94 01/09/19 14:59 Medical Decision Making - [facility] Narrative Medical decision making narrative: 12:36 PM Significant low energy and dizziness probably related to hypotension. He has had poor appetite. He has had poor oral intake. Probably mild or moderate dehydration. I briefly discussed CODE STATUS and he seems to understand the ability to return to quality of life is very limited and is reluctant to have aggressive measures. 2:35 PM With chest x-ray findings of worsening bilateral mid and lower lung space infiltrates, elevated white count, hypotension, I advised patient to be in the hospital for additional treatment which he agrees to. 2:45 PM I spoke with hospitalist, Dr. Louie, who is willing to accept this patient if Dr. Chambers, mortgage branch manager is willing to consult. Blood cultures have been obtained. Will give Vanco and Zosyn. Patient's thrombocytopenia is chronic. Patient's anemia is chronic. His sodium of 130 is new recently but has had hyponatremia multiple times in the past. Pro-calcitonin was 14.7! 3:[address] Chambers is willing to consult on this patient. - Medical Records Medical records reviewed: Yes I reviewed the patient's medical records. - Lab Data Lab results reviewed: Yes I reviewed the patient's lab results. Result diagrams: 01/09/19 12:28 01/09/19 12:28 Lab Results 01/09/19 01/09/19 01/09/19 Range/Units 12:22 12:22 12:28 WBC 13.6 H (4.5-11.0) K/mcL RBC 3.09 L (4.50-5.90) M/mcL Hgb 9.8 L (13.5-16.5) g/dL Hct 29.8 L (41.0-55.0) % POC Hct (41.0-55.0) % MCV 96.2 (80.0-100.0) fL MCH 31.7 (26.0-34.0) pg MCHC 33.0 (31.0-36.0) g/dL RDW 15.5 H (11.5-14.5) % Plt Count 35 L* (140-440) K/mcL MPV 8.8 (7.4-10.4) fL Gran % 88.9 H (38.0-78.0) % Lymph % (Auto) 9.1 L (15.5-49.0) % [place] % (Auto) 1.8 (1.0-12.0) % Eos % (Auto) 0 (0.0-7.0) % Baso % (Auto) 0.2 (0.0-2.0) % Gran # 12.1 H (1.8-8.0) K/mcL Lymph # (Auto) 1.2 L (1.5-4.8) K/mcL [place] # (Auto) 0.2 (0.1-0.9) K/mcL Eos # (Auto) 0 (0.0-0.7) K/mcL Baso # (Auto) 0 (0.0-0.3) K/mcL VBG Lactic Acid (0.5-2.0) mmol/L POC Sodium (133-145) mmol/L Sodium (133-145) mmol/L POC Potassium (3.3-5.1) mmol/L Potassium (3.3-5.1) mmol/L POC Chloride (96-108) mmol/L Chloride (96-108) mmol/L Carbon Dioxide (22-30) mmol/L POC Total CO2 (22-30) mmol/L Anion Gap (8-16) POC BUN (8-23) mg/dl BUN (8-23) mg/dl Creatinine (0.7-1.2) mg/dl POC Creatinine (0.7-1.2) mg/dl GFR Calculation Glucose (70-105) mg/dL POC Glucose (70-105) mg/dL Calcium (8.6-10.4) mg/dl POC WB Ioniz Calcium (1.16-1.32) mmol/L Total Bilirubin (0.0-1.0) mg/dL AST (0-37) U/l ALT (0-40) U/l Alkaline Phosphatase (39-117) U/L Total Creatine Kinase (24-195) IU/L CK-MB (CK-2) (0-4.9) ng/ml NT-Pro-B Natriuret Pep 3258.0 H (0-125) pg/ml Total Protein (5.9-8.4) gm/dL Albumin (3.2-5.2) gm/dL Globulin (2.2-3.7) gm/dL Albumin/Globulin Ratio (1.0-2.3) Procalcitonin 14.75 (<0.10) ng/mL 01/09/19 01/09/19 Range/Units 12:28 12:28 WBC (4.5-11.0) K/mcL RBC (4.50-5.90) M/mcL Hgb (13.5-16.5) g/dL Hct (41.0-55.0) % POC Hct 30.0 L (41.0-55.0) % MCV (80.0-100.0) fL MCH (26.0-34.0) pg MCHC (31.0-36.0) g/dL RDW (11.5-14.5) % Plt Count (140-440) K/mcL MPV (7.4-10.4) fL Gran % (38.0-78.0) % Lymph % (Auto) (15.5-49.0) % [place] % (Auto) (1.0-12.0) % Eos % (Auto) (0.0-7.0) % Baso % (Auto) (0.0-2.0) % Gran # (1.8-8.0) K/mcL Lymph # (Auto) (1.5-4.8) K/mcL [place] # (Auto) (0.1-0.9) K/mcL Eos # (Auto) (0.0-0.7) K/mcL Baso # (Auto) (0.0-0.3) K/mcL VBG Lactic Acid 1.6 (0.5-2.0) mmol/L POC Sodium 132 L (133-145) mmol/L Sodium 130 L (133-145) mmol/L POC Potassium 3.2 L (3.3-5.1) mmol/L Potassium 3.3 (3.3-5.1) mmol/L POC Chloride 90 L (96-108) mmol/L Chloride 90 L (96-108) mmol/L Carbon Dioxide 31 H (22-30) mmol/L POC Total CO2 29 (22-30) mmol/L Anion Gap 9.0 (8-16) POC BUN 39 H (8-23) mg/dl BUN 45 H (8-23) mg/dl Creatinine 3.2 H (0.7-1.2) mg/dl POC Creatinine 3.5 H (0.7-1.2) mg/dl GFR Calculation 20 Glucose 53 L (70-105) mg/dL POC Glucose 55 L (70-105) mg/dL Calcium 8.9 (8.6-10.4) mg/dl POC WB Ioniz Calcium 1.14 L (1.16-1.32) mmol/L Total Bilirubin 0.8 (0.0-1.0) mg/dL AST 14 (0-37) U/l ALT < 5 (0-40) U/l Alkaline Phosphatase 117 (39-117) U/L Total Creatine Kinase 20 L (24-195) IU/L CK-MB (CK-2) 1.3 (0-4.9) ng/ml NT-Pro-B Natriuret Pep (0-125) pg/ml Total Protein 6.6 (5.9-8.4) gm/dL Albumin 2.2 L (3.2-5.2) gm/dL Globulin 4.4 H (2.2-3.7) gm/dL Albumin/Globulin Ratio 0.5 L (1.0-2.3) Procalcitonin (<0.10) ng/mL - Radiology Data Radiology results reviewed: Yes I reviewed the patient's radiology results. Disposition Pt seen by STIFF NECK LOADER/PA only: No Clinical Impression: Hyponatremia Pneumonia Qualifiers: Pneumonia type: due to unspecified organism Laterality: bilateral Lung location : lower lobe of lung Qualified Code(s): J18.1 - Lobar pneumonia, unspecified organism Hypotension Qualifiers: Hypotension type: unspecified hypotension type Qualified Code(s): I95.9 - Hy potension, unspecified Elevated WBC count Qualifiers: Leukocytosis type: leukemoid reaction Qualified Code(s): D72.823 - Leukemoid reaction Disposition: Xfer As Inpt ([facility]) Condition: Fair Referrals: Erwin Fuentes MD [Primary Care Provider] -
[2019-01-09 13:04] LABS: Basophils # (Auto) 0 K/mcL (0.0-0.3); Basophils % (Auto) 0.2 % (0.0-2.0); Eosinophils # (Auto) 0 K/mcL (0.0-0.7); Eosinophils % (Auto) 0 % (0.0-7.0); Granulocytes % (Auto) 88.9 % (38.0-78.0); Lymphocytes # (Auto) 1.2 K/mcL (1.5-4.8); Lymphocytes % (Auto) 9.1 % (15.5-49.0); Mean Cell Volume 96.2 fL (80.0-100.0); Monocytes # (Auto) 0.2 K/mcL (0.1-0.9); Monocytes % (Auto) 1.8 % (1.0-12.0); Platelet Count 35 K/mcL (140-440); RBC 3.09 M/mcL (4.50-5.90); Red Cell Distribution Width 15.5 % (11.5-14.5)
[2019-01-09 13:29] LABS: ALT/SGPT < 5 U/l (0-40); Albumin 2.2 gm/dL (3.2-5.2); Albumin/Globulin Ratio 0.5 (1.0-2.3); Alkaline Phosphatase 117 U/L (39-117); Blood Urea Nitrogen 45 mg/dl (8-23); Creatine Kinase 20 IU/L (24-195); Creatine Kinase MB 1.3 ng/ml (0-4.9)
--- NOTE | 2019-01-09 13:55 | XRay Report ---
CLINICAL INFORMATION: dyspnea COMPARISON: 11/27/2018 FINDINGS: Heart size, mediastinum and pulmonary vessels are normal. Moderate patchy alveolar infiltrates in the left mid/lower lung have worsened. A smaller more consolidated infiltrate in the right lung base has also worsened and there is a new patchy infiltrate right midlung. Small right pleural effusion unchanged. Probable underlying COPD IMPRESSION: Moderate bilateral mid/lower lung infiltrates worsening since comparison x-ray six weeks ago. Consider aspiration. Probable underlying COPD Interpreted and Authenticated by: Maycol Bennett 01/09/19
[2019-01-09] MEDS ORDERED: PIPERACILLIN SODIUM/TAZOBACTAM 3.375 GM in DEXTROSE 5% IN WATER 50 ML IV ONE (14:54)
[2019-01-09] MEDS ORDERED: VANCOMYCIN 750 MG in 0.9 % SODIUM CHLORIDE 250 ML IV ONE (14:57)
[2019-01-09] MEDS ORDERED: VANCOMYCIN 1,000 MG in 0.9 % SODIUM CHLORIDE 250 ML IV ONE (15:16)
[2019-01-09] MEDS ORDERED: 0.9 % SODIUM CHLORIDE 500 ML IV ONE (16:22)
--- NOTE | 2019-01-09 16:45 | Internal Med History&Physical ---
Medical - H&P: HPI Patient information: Note initiated : 01/09/19 at 4:42 pm Service Date, if different from initiated Date: [] Patient: Erwin Gaxiola a 63 y/o M admitted on for Cough, SOB. Chief Complaint: [] History of present illness: Mr. Gaxiola is a 63 year old Male ESRd on HD, follows with Dr Chambers, presents to the ER being brought by the [facility] for shortness of bereath, weakness and dizziness. The patient in the ER reports he feels ok, but on further review it seems that after his previous discharge from this facility (admitted for PNA), he was doing well for a short period of time, he then started to feel like he was having some chest congestion, tired and fatigued, he became progressively more short of breath, and eventually patient was short of breath with minimal activity. he was brought to the ER for further evaluation. He had subjective sensation of chills and feverish, but never actually had a fever. Its seems that he also has been non compliant with his medications. During the previous dialysis session patient was dizzy and according to the ER notes needed IV fluids. the patient does report some choking 2-3 weeks ago on food. On presentation to the ER, patient was afebrile temperature 97.8, heart rate 81, blood pressure 71/44 respirations 28 he was saturating 84% and was placed on 2 L of oxygen. Chest x-ray shows bibasilar infiltrate worse than the previous x- ray likely aspiration also has right-sided pleural effusion, Labs show hemoglobin of 9.8, WBC 13.68 8.9% neutrophils platelets 35 this is chronically low lactic acid is 1.6, potassium 3.3 sodium 130 bicarbonate 31 creatinine 3.2 glucose 53, repeat glucose was 74 The patient is being admitted to the hospital for further management, Dr Chambers consulted from the ER. The patient has chr diarrhea and has been scheduled for outpatient colonosocpy, it seems there is some difficulty in getting this done. All systems: reviewed and no additional remarkable complaints except as stated (as per HPI rest negative.) Medical - H&P: PMH Medical history: Medical History (Last Updated 01/09/19 @ 14:30 by Colt Alves DO) Anemia in CKD (chronic kidney disease) (Chronic) Thrombocytopenia (Chronic) Diabetes mellitus with ESRD (end-stage renal disease) (Chronic) Diabetes mellitus (Chronic) Venous stasis ulcer (Chronic) Diarrhea (Chronic) Leukocytosis (Chronic) Hypoglycemia (Chronic) Cachexia (Chronic) Weight loss (Chronic) Hypotension (Chronic) Foot ulcer (Chronic) Corneal opacity (Chronic) Onychomycosis (Chronic) Hepatitis C antibody test positive (Chronic) Astigmatism (Chronic) Hypermetropia (Chronic) Myopia (Chronic) Epiretinal membrane (Chronic) Tympanic membrane perforation (Chronic) Stiffness of right hand joint (Chronic) Presbyopia (Chronic) Osteomyelitis (Resolved) Pneumonia (Resolved) Septic arthritis (Resolved) Septic arthritis of ankle or foot (Resolved) Surgical history: Past Surgical History (Last Updated 01/09/19 @ 13:06 by Colt Alves DO) S/P cataract extraction (Acute) S/P cholecystectomy (Acute) S/P tonsillectomy (Acute) History of cardiac cath (Chronic) History of colonoscopy (Chronic ~02/2011) Pertinent family history: Family History (Last Updated 12/29/18 @ 13:18 by Angelia Douglas) Other No pertinent family history Medical - H&P: Meds Home Medications Medication Instructions Recorded Confirmed Type Loperamide HCl [Loperamide] 4 mg PO PRN PRN MDD 16 mg 11/27/18 01/09/19 History Megestrol Acetate [Megace] 40 mg PO DAILY 11/27/18 01/09/19 History Midodrine [Midodrine HCl] 5 mg PO BID 11/27/18 01/09/19 History calcium acetate 667 mg capsule 667 mg PO TID cap 12/29/18 01/09/19 History sevelamer carbonate 800 mg tablet 1,600 mg PO TID tab 12/29/18 01/09/19 History Allergies Allergy/AdvReac Type Severity Reaction Status Date / Time No Known Drug Allergies Allergy Verified 01/09/19 12:09 Medical - H&P: Exam - Constitutional Vitals: Temp Pulse Resp BP Pulse Ox 97.8 F 83 33 H 88/59 100 01/09/19 12:07 01/09/19 16:15 01/09/19 16:30 01/09/19 16:30 01/09/19 16:15 Exam: GENERAL: The patient thin frail gentleman, BMI of 14.4 cachectic, in no apparent distress VITAL SIGNS: Reviewed and as noted elsewhere. HEENT: Head is normocephalic and atraumatic. Extraocular muscles are intact. Pupils are equal, round, and reactive to light. Nares appeared normal. Mouth appears any without lesions. Mucous membranes are dry, patient has temporal muscle wasting. NECK: Normal to inspection, Supple, No lymphadenopathy or thyromegaly. LUNGS: Air entry equal on both sides, bibasilar rales, no wheezing noted. Able to speak full sentences not respiratory distress HEART: Regular rate and rhythm normal, S1 and S2 heard, no Gallop, S3 or Rub Noted, No Gross murmur heard. ABDOMEN: Soft, nontender, and nondistended. Positive bowel sounds. No hepatosplenomegaly was noted. Scaphoid abdomen EXTREMITIES: No cyanosis, clubbing, rash, lesions or edema. Thin extremities NEUROLOGIC: Cranial nerves II through XII are grossly intact. Motor and Sensory System Grossly Intact PSYCHIATRIC: Normal affect, Normal Mood. Appropriate Behavior. SKIN: No ulceration or wounds noted, No jaundice, No rash noted. Medical - H&P: Reslt - Labs CBC & Chem 7: 01/09/19 12:28 01/09/19 12:28 Labs: Short CBC 01/09/19 Range/Units 12:28 WBC 13.6 H (4.5-11.0) K/mcL Hgb 9.8 L (13.5-16.5) g/dL Hct 29.8 L (41.0-55.0) % Plt Count 35 L* (140-440) K/mcL BMP 01/09/19 12:28 Sodium 130 L Potassium 3.3 Chloride 90 L Carbon Dioxide 31 H BUN 45 H Creatinine 3.2 H Glucose 53 L Calcium 8.9 Cardiac Enzymes 01/09/19 Range/Units 12:28 Total Creatine Kinase 20 L (24-195) IU/L CK-MB (CK-2) 1.3 (0-4.9) ng/ml Liver Function 01/09/19 Range/Units 12:28 Total Bilirubin 0.8 (0.0-1.0) mg/dL AST 14 (0-37) U/l ALT < 5 (0-40) U/l Alkaline Phosphatase 117 (39-117) U/L Albumin 2.2 L (3.2-5.2) gm/dL Medical - H&P: A/P - Narrative A/P Narrative: A/P Pneumonia -HCAP, Aspiration pneumonia, -sputum cx, blood cx sent -IV vancomycin and zosyn for now -procalcitonin is 14.75 Sepsis -monitor closely, lactic acid is normal pt has chronically low bp Hypotension -chr issue, on midodrine, not sure if is compliant -was on 5mg bid, increase dose to 5mg tid and monitor -gentle hydration as needed Aspiration -get Speech eval -possible barin swallow if needed. ESRd -on HD Thrombocytopenia -chr stable, etiology? due to hep c? sever malnourishment -cachetic individual, BMI 14.4 -dietary consult -reported that he does not eat much, has chr diarrhea - he is on megace, monitor dietary intake -PEG tube was being considered it seems at one time -he remains on IPN during HD Hep C outpatient follow up Diarrhea -etiology, has been scheduled with Dr Kam, -will see if we can get this done during this hospitalization, Dr Kam is present this week Anemia -due to esrd, DM ssi insulin for glucose control DVT SCD Full code Social History - Tobacco smoking status: Former smoker - Alcohol alcohol intake frequency: does not drink - Substance use substance use type: does not use
[2019-01-09] MEDS ORDERED: NALOXONE HCL 0.4 MG/ML VIAL IV PRN (19:27)
[2019-01-09] MEDS ORDERED: VANCOMYCIN PER PHARMACY IV SCH (19:27)
[2019-01-09] MEDS ORDERED: ONDANSETRON 4 MG/2 ML VIAL IV PRN (19:27)
[2019-01-09] MEDS ORDERED: ACETAMINOPHEN 325 MG TABLET PO PRN (19:27)
[2019-01-09] MEDS ORDERED: LOPERAMIDE 2 MG CAPSULE PO PRN (19:34)
[2019-01-09] MEDS: PIPERACILLIN SODIUM/TAZOBACTAM 2.25 GM in DEXTROSE 5% IN WATER 50 ML IV SCH (20:55)
[2019-01-09] MEDS ORDERED: DEXTROSE 31 GM ORAL.SUSP PO PRN (21:44)
[2019-01-09] MEDS ORDERED: DEXTROSE 50% 50 ML VIAL IV PRN (21:44)
[2019-01-09] MEDS ORDERED: PNEUMOCOCCAL 23-VAL P-SAC VAC 0.5 ML SYRINGE IM ONE (22:53)
[2019-01-09] MEDS: 0.9 % SODIUM CHLORIDE 10 ML SYRINGE IV SCH (22:58)
[2019-01-10] MEDS: 0.9 % SODIUM CHLORIDE 10 ML SYRINGE IV SCH ×3 (06:01→22:31)
--- NOTE | 2019-01-10 06:03 | Internal Med Progress Note ---
Medical - PN: Subj Patient information: Note initiated : 01/10/19 at 5:59 am Service Date, if different from initiated Date: [] Patient: Erwin Gaxiola a 63 y/o M admitted on 01/09/19 for Cough, SOB. Chief Complaint: [] Interval history: Mr. Gaxiola is a 63 year old Male ESRd on HD, follows with Dr Chambers, presents to the ER being brought by the daugthe for shortness of bereath, weakness and dizziness. The patient in the ER reports he feels ok, but on further review it seems that after his previous discharge from this facility (admitted for PNA), he was doing well for a short period of time, he then started to feel like he was having some chest congestion, tired and fatigued, he became progressively more short of breath, and eventually patient was short of breath with minimal activity. he was brought to the ER for further evaluation. He had subjective sensation of chills and feverish, but never actually had a fever. Its seems that he also has been non compliant with his medications. During the previous dialysis session patient was dizzy and according to the ER notes needed IV fluids. the patient does report some choking 2-3 weeks ago on food. On presentation to the ER, patient was afebrile temperature 97.8, heart rate 81, blood pressure 71/44 respirations 28 he was saturating 84% and was placed on 2 L of oxygen. Chest x-ray shows bibasilar infiltrate worse than the previous x- ray likely aspiration also has right-sided pleural effusion, Labs show hemoglobin of 9.8, WBC 13.68 8.9% neutrophils platelets 35 this is chronically low lactic acid is 1.6, potassium 3.3 sodium 130 bicarbonate 31 creatinine 3.2 glucose 53, repeat glucose was 74 The patient is being admitted to the hospital for further management, Dr Chambers consulted from the ER. The patient has chr diarrhea and has been scheduled for outpatient colonoscopy, it seems there is some difficulty in getting this done. 01/10 Patient seen and examined, no acute overnight events, sitting comfortably in bed. Denies any chest pain, shortness of breath is better, no dizziness. No abdominal pain. C. difficile is negative. Blood pressure stable overnight, no acute events on telemetry. Pertinent ROS: Denies headache, dizziness Denies chest pain, palpitations Denies cough or shortness of breath Denies abdominal pain, nausea or vomiting. - Constitutional Vitals: Vital Signs Temp Pulse Resp BP Pulse Ox 97.9 F 73 25 H 107/67 100 01/10/19 04:05 01/10/19 05:01 01/10/19 05:01 01/10/19 05:01 01/10/19 05:01 Period Temp Pulse Resp BP Sys/William Pulse Ox Last 24 Hr 97.8 F-98.8 F 29-100 14-35 71-107/44-85 84-100 Intake and Output 01/09/19 01/09/19 01/10/19 13:59 21:59 05:59 Intake Total 500 300 0 Output Total 0 0 Balance 500 300 0 Weight 95 lb 94 lb 12.8 oz Patient Weight 01/10/19 05:59 Weight 94 lb 12.8 oz Intake & Output: Intake & Output 01/09/19 01/09/19 01/10/19 13:59 21:59 05:59 Intake Total 500 300 0 Output Total 0 0 Balance 500 300 0 Weight 95 lb 94 lb 12.8 oz Intake: IV 500 300 Sodium Chloride 0.9% 500 ml @ 500 Wide Open IV BOLUS ONE Rx#: [id number] Zosyn 3.375 gm In Dextrose 5% 50 in Water 50 ml @ 100 mls/hr IV ONCE ONE Rx#:[id number] Vancomycin 1,000 mg In Sodium 250 Chloride 0.9% 250 ml @ 250 mls/ hr IV ONCE ONE Rx#:[id number] Oral 0 0 Output: Void Amount 0 0 Other: Stool Size Small Stool Color Brown Yellow Stool Consistency Liquid # Bowel Movements 1 # of times incontinent of 1 Bowels Exam: Constitutional; Afebrile, cooperative, alert, not in distress. cachetic individual Eyes- No icterus, , No periorbital swelling Ears- Ext ear normal, hearing normal to conversation. Neck- Midline trachea, supple Respiratory system: Air Entry equal on both sides, bibasilar rales, no wheeze, CVS- Rate rhythm regular, S1,S2 heard, no gallop, no rub. Abdomen- Soft nontender abdomen, no organomegaly, no tenderness, no guarding or rigidity, [employer]ATOR- AOOx3, moving all extremities, no gross focal deficit noted. Medical - PN: Obj Da - Labs CBC & Chem 7: 01/09/19 12:28 01/09/19 12:28 Labs: Abnormal Lab Results 01/09/19 01/09/19 01/09/19 12:28 12:28 12:22 WBC 13.6 H RBC 3.09 L Hgb 9.8 L Hct 29.8 L POC Hct 30.0 L RDW 15.5 H Plt Count 35 L* Gran % 88.9 H Lymph % (Auto) 9.1 L Gran # 12.1 H Lymph # (Auto) 1.2 L POC Sodium 132 L Sodium 130 L POC Potassium 3.2 L POC Chloride 90 L Chloride 90 L Carbon Dioxide 31 H POC BUN 39 H BUN 45 H Creatinine 3.2 H POC Creatinine 3.5 H Glucose 53 L POC Glucose 55 L POC WB Ioniz Calcium 1.14 L Total Creatine Kinase 20 L NT-Pro-B Natriuret Pep 3258.0 H Albumin 2.2 L Globulin 4.4 H Albumin/Globulin Ratio 0.5 L Meds: Medications Acetaminophen (Tylenol) 650 mg PO Q4-6HP PRN PRN Reason: PAIN/FEVER > 101 Calcium Acetate (Phoslo) 667 mg PO TIDCC [facility] Dextrose (Dextrose 50%) 0 ml IV UD PRN PRN Reason: Hypoglycemia Diagnostic Test (Pha) (Accu-Chek) 1 each FS [facility] Glucose (Insta-Glucose) 15 gm PO PRN PRN PRN Reason: Hypoglycemia Piperacillin Sod/Tazobactam (Sod 2.25 gm/ Dextrose) 50 mls @ 100 mls/hr IV Q12 [facility]; Protocol Last Admin: 01/09/19 20:55 Dose: Not Given Documented by: Insulin Human Lispro (Humalog) 0 unit SQ [facility]; Protocol Loperamide HCl (Imodium) 2 mg PO UD PRN PRN Reason: Diarrhea Megestrol Acetate (Megace) 40 mg PO DAILY [facility] Midodrine (Midodrine Hcl) 5 mg PO TID@0800,1200,1700 [facility] Naloxone HCl (Narcan) 0.1 mg IV Q2MIN PRN PRN Reason: Opiate Reversal Ondansetron HCl (Zofran) 4 mg IV Q4-6HP PRN PRN Reason: Nausea And Vomiting Pantoprazole Sodium (Protonix) 40 mg PO QAMAC [facility] Pneumococcal Polyvalent Vaccine (Pneumovax 23) 0.5 ml IM .ONCE ONE Stop: 01/09/19 22:54 Last Admin: 01/10/19 02:36 Dose: Not Given Documented by: Sevelamer Carbonate (Renvela) 1,600 mg PO TIDCC [facility] Sodium Chloride (Saline Flush) 10 ml IV Q8 [facility] Last Admin: 01/09/19 22:58 Dose: 10 ml Documented by: Vancomycin HCl (Vancomycin Per Pharmacy) 1 order IV UD [facility]; Protocol Medical - PN: A/P - Time Spent With Patient Total time spent is greater than 50% in coordination of care (as documented) at patient's floor/unit and/or counseling patient: - Narrative A/P Narrative: A/P Pneumonia -HCAP, Aspiration pneumonia, -sputum cx, blood cx sent, cultures pending -IV vancomycin and zosyn for now -procalcitonin is 14.75 on admit Sepsis _bp stable, lactic acid is normal pt has chronically low bp AM labs pending, Hypotension -chr issue, on midodrine, not sure if is compliant -was on 5mg bid, increase dose to 5mg tid and monitor -gentle hydration as needed Aspiration -get Speech eval -possible barium swallow if needed. chronic Diarrhea -GI consult, scheduled to have outpt colonoscopy, but seems to have been difficult. ESRd -on HD Thrombocytopenia -chr stable, etiology? due to hep c? not sure if has seen hematology. sever malnourishment -cachetic individual, BMI 14.4 -dietary consult -reported that he does not eat much, has chr diarrhea - he is on megace to continue, monitor dietary intake -PEG tube was being considered it seems at one time -he remains on IPN during HD Hep C outpatient follow up Anemia -due to esrd, DM ssi insulin for glucose control DVT SCD Full code Medical - PN: Qual - VTE Deep Vein Thrombosis/Pulmonary Embolism Present on Admission: No
[2019-01-10 06:45] LABS: ALT/SGPT < 5 U/l (0-40); Albumin/Globulin Ratio 0.5 (1.0-2.3); Alkaline Phosphatase 103 U/L (39-117); Bilirubin,Direct 0.3 mg/dL (0.0-0.3); Blood Urea Nitrogen 60 mg/dl (8-23); Gamma Glutamyl Transpeptidase 13 U/L (8-61); Uric Acid 3.5 mg/dL (2.5-8.0)
[2019-01-10 06:58] LABS: Basophils # (Auto) 0 K/mcL (0.0-0.3); Basophils % (Auto) 0.2 % (0.0-2.0); Eosinophils # (Auto) 0.1 K/mcL (0.0-0.7); Eosinophils % (Auto) 0.8 % (0.0-7.0); Lymphocytes # (Auto) 0.8 K/mcL (1.5-4.8); Lymphocytes % (Auto) 7.4 % (15.5-49.0); Mean Cell Volume 95.6 fL (80.0-100.0); Mean Corpuscular HGB Conc 32.9 g/dL (31.0-36.0); Monocytes # (Auto) 0.3 K/mcL (0.1-0.9); Monocytes % (Auto) 2.6 % (1.0-12.0); Platelet Count 36 K/mcL (140-440); RBC 2.84 M/mcL (4.50-5.90); Red Cell Distribution Width 15.6 % (11.5-14.5)
[2019-01-10] MEDS ORDERED: PANTOPRAZOLE 40 MG TABLET PO SCH (07:30)
[2019-01-10] MEDS: INSULIN LISPRO 1 UNIT/0.01 ML UNIT SQ SCH ×4 (07:34→22:30)
[2019-01-10] MEDS: MIDODRINE 5 MG TABLET PO SCH ×3 (07:57→15:55)
[2019-01-10] MEDS: CALCIUM ACETATE 667 MG CAPSULE PO SCH ×3 (08:44→18:09)
[2019-01-10] MEDS: SEVELAMER 800 MG TABLET PO SCH ×3 (08:44→16:54)
[2019-01-10] MEDS ORDERED: MEGESTROL ACETATE 400 MG/10 ML ORAL.SUSP PO SCH (09:00)
[2019-01-10] MEDS ORDERED: CYANOCOBALAMIN 1,000 MCG/ML VIAL IM SCH (13:08)
[2019-01-10] MEDS ORDERED: 0.9 % SODIUM CHLORIDE 250 ML IV SCH ×2 (13:15→16:10)
--- NOTE | 2019-01-10 13:15 | Internal Medicine Consult Note ---
Medical - CN: HPI - Data of Consult Patient: known to practice within the last 3 years Consult date: 01/10/19 Primary Care Provider: Erwin Fuentes - Consult Narrative Reason for consult: weight loss, chronic diarrhea History of present illness: Mr. 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 He was scheduled for outpatient EGD and colonoscopies multiple times, but has cancelled due to repeat hospital admission for falls and pneumonia. Briefly, he has an 8 year history of chronic diarrhea, having up to 10 liquid bowel movements daily with some blood with bowel movements. He avoids eating to limit diarrhea and has lost 30lbs this year as a consequence. BMI today is 14.4 with weight 94lbs. He is taking 1-2 Imodium daily without any improvement. He had no improvement after a course of antibiotic therapy for pneumonia. He is quite malnourished with albumin 2.0, history of folate deficiency and elevated MMA. He is thrombocytopenic with platelets 35,000. Although he has been referred for out patient heme-onc evaluation, he has not been able to keep that appointment. He has a history of positive HCV antibody with suggestion of portal hypertension seen on US with mild splenomegaly. There is a question of whether some of his malnutrition/weight loss is due to food insecurity and socioeconomic circumstances as he was recently evicted. CC: Mirna Louie - Constitutional Constitutional: Present: fatigue, fever(s), weight loss - EENT Additional comments: difficulty hearing - Respiratory Respiratory: Present: cough, dyspnea on exertion - Neurological Neurological: Present: dizziness - Psychiatric Psychiatric: Present: depression - Hematologic/Lymphatic Additional comments: thrombocytopenia Medical - CN: PM Medical history: Diabetes, ESRD, hemodialysis, diabetic neuropathy, osteomyelitis, aspiration pneumonia, hepatitis C antibody positive Surgical history: Finger amputation, toe amputation Pertinent family history: father-diabetic Social history: nonsmoker, does not drink alcohol Medical - CN: Meds Home Medications Medication Instructions Recorded Confirmed Type Loperamide HCl [Loperamide] 4 mg PO PRN PRN MDD 16 mg 11/27/18 01/09/19 History Megestrol Acetate [Megace] 40 mg PO DAILY 11/27/18 01/09/19 History Midodrine [Midodrine HCl] 5 mg PO BID 11/27/18 01/09/19 History calcium acetate 667 mg capsule 667 mg PO TID cap 12/29/18 01/09/19 History sevelamer carbonate 800 mg tablet 1,600 mg PO TID tab 12/29/18 01/09/19 History Allergies Allergy/AdvReac Type Severity Reaction Status Date / Time No Known Drug Allergies Allergy Verified 01/09/19 12:09 Medical - CN: Exam - Constitutional Vitals: Temp Pulse Resp BP Pulse Ox 96.5 F L 95 H 24 H 128/86 95 01/10/19 10:05 01/10/19 12:57 01/10/19 12:00 01/10/19 12:57 01/10/19 12:00 General appearance: no acute distress, thin - Head Head exam: Present: atraumatic, normal inspection, normocephalic - Eye Additional comments: corneal opacity - ENT ENT exam: Present: normal exam, normal external ear exam - Neck Neck exam: Present: normal inspection. Absent: lymphadenopathy, thyromegaly - Respiratory Respiratory exam: Present: rhonchi Additional comments: rhonchi bilaterally - Cardiovascular Cardiovascular exam: Present: normal rate and rhythm, RRR. Absent: gallop, systolic murmur - GI/Abdominal GI/Abdominal exam: Present: normal bowel sounds, soft. Absent: organomegaly, tenderness - Extremities Exam Extremities exam: Present: normal inspection. Absent: pedal edema - Psychiatric Psychiatric exam: Present: normal affect, normal mood - Skin Skin exam: Present: dry, warm. Absent: pallor Medical - CN: Result - Labs CBC & Chem 7: 01/10/19 03:40 01/10/19 03:40 Labs: Short CBC 01/10/19 Range/Units 03:40 WBC 10.9 (4.5-11.0) K/mcL Hgb 8.9 L (13.5-16.5) g/dL Hct 27.2 L (41.0-55.0) % Plt Count 36 L* (140-440) K/mcL BMP 01/09/19 01/10/19 12:28 03:40 Sodium 130 L 134 Potassium 3.3 3.3 Chloride 90 L 95 L Carbon Dioxide 31 H 27 BUN 45 H 60 H Creatinine 3.2 H 4.3 H Glucose 53 L 73 Calcium 8.9 8.8 Cardiac Enzymes 01/09/19 Range/Units 12:28 Total Creatine Kinase 20 L (24-195) IU/L CK-MB (CK-2) 1.3 (0-4.9) ng/ml Liver Function 01/09/19 01/10/19 Range/Units 12:28 03:40 Total Bilirubin 0.8 0.6 (0.0-1.0) mg/dL Direct Bilirubin 0.3 (0.0-0.3) mg/dL GGT 13 (8-61) U/L AST 14 16 (0-37) U/l ALT < 5 < 5 (0-40) U/l Alkaline Phosphatase 117 103 (39-117) U/L Albumin 2.2 L 2.0 L (3.2-5.2) gm/dL Medical - CN: A/P (1) Diarrhea Status: Chronic Assessment and plan: Discussed his case with Dr. Kam. Will arrange for EGD to check for malabsorption, gastric lesion, etc as a cause of his diarrhea and weight loss. If this is unremarkable, will arrange for colonoscopy with random colon biopsies. Can take up to Imodium 8 tablets daily to control diarrhea as c. difficile is negative. (2) Weight loss Status: Chronic (3) Thrombocytopenia Status: Chronic Assessment and plan: Folate and B12 deficiency likely contributing. Have recommended B12 IM and folate 1mg PO as supplementation. Will give platelets prior to endoscopic procedures. (4) Hepatitis C antibody test positive Status: Chronic Assessment and plan: Dr. Louie will order HCV PCR RNA with reflex to genotype to clarify his status. Will continue to follow patient w/ Dr. Louie.
[2019-01-10] MEDS: PIPERACILLIN SODIUM/TAZOBACTAM 2.25 GM in DEXTROSE 5% IN WATER 50 ML IV SCH ×2 (13:22→16:20)
[2019-01-10] MEDS ORDERED: VANCOMYCIN PER PHARMACY IV SCH (16:10)
[2019-01-10] MEDS ORDERED: LOPERAMIDE 2 MG CAPSULE PO PRN (16:10)
[2019-01-10] MEDS ORDERED: ACETAMINOPHEN 325 MG TABLET PO PRN (16:10)
[2019-01-10] MEDS ORDERED: NALOXONE HCL 0.4 MG/ML VIAL IV PRN (16:10)
[2019-01-10] MEDS ORDERED: ONDANSETRON 4 MG/2 ML VIAL IV PRN (16:10)
[2019-01-10] MEDS ORDERED: DEXTROSE 31 GM ORAL.SUSP PO PRN (16:10)
[2019-01-10] MEDS ORDERED: DEXTROSE 50% 50 ML VIAL IV PRN (16:10)
[2019-01-10] MEDS ORDERED: VANCOMYCIN 1,000 MG in 0.9 % SODIUM CHLORIDE 250 ML IV ONE (16:30)
[2019-01-10] MEDS ORDERED: FOLIC ACID/VITAMIN B COMP W-C 1 TAB TABLET PO SCH (21:00)
[2019-01-10] MEDS: FOLIC ACID/VITAMIN B COMP W-C 1 TAB TABLET PO SCH (22:30)
[2019-01-11] MEDS: PIPERACILLIN SODIUM/TAZOBACTAM 2.25 GM in DEXTROSE 5% IN WATER 50 ML IV SCH ×3 (00:26→21:58)
[2019-01-11] MEDS: 0.9 % SODIUM CHLORIDE 10 ML SYRINGE IV SCH ×3 (05:38→21:59)
[2019-01-11 07:05] LABS: Basophils # (Auto) 0 K/mcL (0.0-0.3); Basophils % (Auto) 0.1 % (0.0-2.0); Eosinophils # (Auto) 0 K/mcL (0.0-0.7); Eosinophils % (Auto) 0.1 % (0.0-7.0); Granulocytes % (Auto) 84.4 % (38.0-78.0); Lymphocytes % (Auto) 11.2 % (15.5-49.0); Mean Cell Volume 97.4 fL (80.0-100.0); Monocytes # (Auto) 0.4 K/mcL (0.1-0.9); Monocytes % (Auto) 4.2 % (1.0-12.0); Platelet Count 96 K/mcL (140-440); RBC 2.78 M/mcL (4.50-5.90); Red Cell Distribution Width 16.2 % (11.5-14.5)
[2019-01-11] MEDS: CALCIUM ACETATE 667 MG CAPSULE PO SCH ×3 (07:30→17:41)
[2019-01-11] MEDS: INSULIN LISPRO 1 UNIT/0.01 ML UNIT SQ SCH ×4 (07:30→21:57)
[2019-01-11] MEDS: PANTOPRAZOLE 40 MG TABLET PO SCH (07:30)
[2019-01-11] MEDS: SEVELAMER 800 MG TABLET PO SCH ×3 (07:30→17:41)
[2019-01-11] MEDS: MIDODRINE 5 MG TABLET PO SCH ×3 (07:30→17:40)
[2019-01-11] MEDS: MEGESTROL ACETATE 400 MG/10 ML ORAL.SUSP PO SCH (07:31)
[2019-01-11] MEDS: FOLIC ACID/VITAMIN B COMP W-C 1 TAB TABLET PO SCH ×2 (07:31→21:58)
[2019-01-11 08:11] LABS: ALT/SGPT 5 U/l (0-40); Albumin 1.9 gm/dL (3.2-5.2); Albumin/Globulin Ratio 0.5 (1.0-2.3); Alkaline Phosphatase 69 U/L (39-117); Bilirubin,Direct 0.3 mg/dL (0.0-0.3); Blood Urea Nitrogen 29 mg/dl (8-23); Gamma Glutamyl Transpeptidase 12 U/L (8-61); Uric Acid 1.9 mg/dL (2.5-8.0)
[2019-01-11] MEDS ORDERED: KETAMINE HCL 50 MG/ML ML IV PRN (08:56)
[2019-01-11] MEDS ORDERED: PROPOFOL 200 MG/20 ML VIAL IV SCH (09:00)
[2019-01-11] MEDS ORDERED: MIDAZOLAM 2 MG/2 ML VIAL IV SCH (09:00)
[2019-01-11] MEDS ORDERED: PROPOFOL 20 ML IV ONE (09:02)
[2019-01-11] MEDS ORDERED: MIDAZOLAM 2 MG/2 ML VIAL ONE (09:02)
[2019-01-11] MEDS: CYANOCOBALAMIN 1,000 MCG/ML VIAL IM SCH (10:51)
--- NOTE | 2019-01-11 13:28 | Internal Med Progress Note ---
Medical - PN: Subj Patient information: Note initiated : 01/11/19 at 1:25 pm Service Date, if different from initiated Date: [] Patient: Erwin Gaxiola a 63 y/o M admitted on 01/09/19 for Cough, SOB. Chief Complaint: [diarrhea, weight loss] Interval history: Mr. Gaxiola is a 63 year old M who is admitted with chronic diarrhea, weight loss. Had EGD this morning which was endoscopically normal. Small bowel biopsies taken to check for malabsorption. Platelets were 93,000 after 2 units of platelets. He had one loose BM yesterday and has not yet had a BM this morning. Weight up 1.5lb since yesterday. - Constitutional Vitals: Vital Signs Temp Pulse Resp BP Pulse Ox 97.5 F 66 20 114/69 99 01/11/19 11:45 01/11/19 09:45 01/11/19 11:45 01/11/19 11:45 01/11/19 11:45 Period Temp Pulse Resp BP Sys/William Pulse Ox Last 24 Hr 97.2 F-100.9 F 61-104 12-33 73-132/49-92 94-100 Intake and Output 01/10/19 01/11/19 01/11/19 21:59 05:59 13:59 Intake Total 700 510 120 Balance 700 510 120 Weight 95 lb 8 oz Intake & Output: Intake & Output 01/10/19 01/11/19 01/11/19 21:59 05:59 13:59 Intake Total 700 510 120 Balance 700 510 120 Weight 95 lb 8 oz Intake: IV 300 50 Zosyn 2.25 gm In Dextrose 5% in 50 50 Water 50 ml @ 100 mls/hr IV Q12 [facility] Rx#:[id number] Vancomycin 1,000 mg In Sodium 250 Chloride 0.9% 250 ml @ 250 mls/ hr IV ONCE ONE Rx#:[id number] Oral 400 120 Blood Product 460 Other: Stool Size Small Stool Color Julio Colored Stool Consistency Loose General appearance: disheveled, no acute distress, thin - Head Head exam: Present: atraumatic, normal inspection, normocephalic - Neck Neck exam: Present: normal inspection - Respiratory Respiratory exam: Present: decreased breath sounds, rhonchi - Cardiovascular Cardiovascular exam: Present: normal rate and rhythm. Absent: systolic murmur - GI/Abdominal GI/Abdominal exam: Present: normal bowel sounds, soft. Absent: hernia, mass, organomegaly, tenderness - Neurological Exam Neurological exam: Present: alert - Psychiatric Psychiatric exam: Present: normal affect, normal mood - Skin Skin exam: Present: dry, normal color, warm. Absent: pallor Medical - PN: Obj Da - Labs CBC & Chem 7: 01/11/19 04:10 01/11/19 04:10 Labs: Abnormal Lab Results 01/11/19 01/11/19 01/10/19 04:10 04:10 03:40 WBC RBC 2.78 L Hgb 8.7 L Hct 27.1 L POC Hct RDW 16.2 H Plt Count 96 L Gran % 84.4 H Lymph % (Auto) 11.2 L Gran # Lymph # (Auto) 1.0 L POC Sodium Sodium POC Potassium Potassium 3.0 L POC Chloride Chloride 95 L Carbon Dioxide POC BUN BUN 29 H 60 H Creatinine 2.4 H 4.3 H POC Creatinine Glucose POC Glucose Uric Acid 1.9 L Calcium 8.4 L POC WB Ioniz Calcium Phosphorus 2.3 L Total Creatine Kinase NT-Pro-B Natriuret Pep Total Protein 5.8 L Albumin 1.9 L 2.0 L Globulin 3.9 H 4.2 H Albumin/Globulin Ratio 0.5 L 0.5 L 01/10/19 01/09/19 01/09/19 03:40 12:28 12:28 WBC 13.6 H RBC 2.84 L 3.09 L Hgb 8.9 L 9.8 L Hct 27.2 L 29.8 L POC Hct 30.0 L RDW 15.6 H 15.5 H Plt Count 36 L* 35 L* Gran % 89.0 H 88.9 H Lymph % (Auto) 7.4 L 9.1 L Gran # 9.7 H 12.1 H Lymph # (Auto) 0.8 L 1.2 L POC Sodium 132 L Sodium 130 L POC Potassium 3.2 L Potassium POC Chloride 90 L Chloride 90 L Carbon Dioxide 31 H POC BUN 39 H BUN 45 H Creatinine 3.2 H POC Creatinine 3.5 H Glucose 53 L POC Glucose 55 L Uric Acid Calcium POC WB Ioniz Calcium 1.14 L Phosphorus Total Creatine Kinase 20 L NT-Pro-B Natriuret Pep Total Protein Albumin 2.2 L Globulin 4.4 H Albumin/Globulin Ratio 0.5 L 01/09/19 12:22 WBC RBC Hgb Hct POC Hct RDW Plt Count Gran % Lymph % (Auto) Gran # Lymph # (Auto) POC Sodium Sodium POC Potassium Potassium POC Chloride Chloride Carbon Dioxide POC BUN BUN Creatinine POC Creatinine Glucose POC Glucose Uric Acid Calcium POC WB Ioniz Calcium Phosphorus Total Creatine Kinase NT-Pro-B Natriuret Pep 3258.0 H Total Protein Albumin Globulin Albumin/Globulin Ratio Meds: Medications Acetaminophen (Tylenol) 650 mg PO Q4-6HP PRN PRN Reason: PAIN/FEVER > 101 Calcium Acetate (Phoslo) 667 mg PO TIDCC [facility] Last Admin: 01/11/19 11:20 Dose: Not Given Documented by: Cyanocobalamin (Vitamin B12) 1,000 mcg IM DAILY [facility] Stop: 01/17/19 13:07 Last Admin: 01/11/19 10:51 Dose: 1,000 mcg Documented by: Dextrose (Dextrose 50%) 0 ml IV UD PRN PRN Reason: Hypoglycemia Diagnostic Test (Pha) (Accu-Chek) 1 each FS [facility] Last Admin: 01/11/19 11:17 Dose: 1 each Documented by: Glucose (Insta-Glucose) 15 gm PO PRN PRN PRN Reason: Hypoglycemia Piperacillin Sod/Tazobactam (Sod 2.25 gm/ Dextrose) 50 mls @ 100 mls/hr IV Q12 [facility]; Protocol Last Admin: 01/11/19 10:51 Dose: 100 mls/hr Documented by: Insulin Human Lispro (Humalog) 0 unit SQ [facility]; Protocol Last Admin: 01/11/19 11:17 Dose: Not Given Documented by: Ketamine HCl (Ketamine Hcl) 50 mg IV ONCE PRN PRN Reason: Sedation Stop: 01/11/19 16:56 Loperamide HCl (Imodium) 2 mg PO UD PRN PRN Reason: Diarrhea Megestrol Acetate (Megace) 40 mg PO DAILY [facility] Last Admin: 01/11/19 07:31 Dose: Not Given Documented by: Midazolam HCl (Versed) 0 mg IV ONCE [facility] Stop: 01/11/19 16:56 Last Admin: 01/11/19 09:27 Dose: 2 mg Documented by: Midodrine (Midodrine Hcl) 5 mg PO TID@0800,1200,1700 [facility] Last Admin: 01/11/19 11:20 Dose: 5 mg Documented by: Multivit/Ca Carb/B Cmplx/FA/Prenat (Diatx) 1 tab PO BID [facility] Last Admin: 01/11/19 07:31 Dose: Not Given Documented by: Naloxone HCl (Narcan) 0.1 mg IV Q2MIN PRN PRN Reason: Opiate Reversal Ondansetron HCl (Zofran) 4 mg IV Q4-6HP PRN PRN Reason: Nausea And Vomiting Pantoprazole Sodium (Protonix) 40 mg PO QAMAC [facility] Last Admin: 01/11/19 07:30 Dose: 40 mg Documented by: Polyethylene Glycol/Electrolytes (Golytely) 4,000 ml PO ONCE ONE Stop: 01/11/19 17:01 Propofol (Diprivan) 0 mg IV ONCE [facility] Stop: 01/11/19 16:56 Last Admin: 01/11/19 09:27 Dose: 30 mg Documented by: Sevelamer Carbonate (Renvela) 1,600 mg PO TIDCC [facility] Last Admin: 01/11/19 11:21 Dose: Not Given Documented by: Sodium Chloride (Saline Flush) 10 ml IV Q8 [facility] Last Admin: 01/11/19 05:38 Dose: 10 ml Documented by: Vancomycin HCl (Vancomycin Per Pharmacy) 1 order IV UD [facility]; Protocol Medical - PN: A/P - Time Spent With Patient Total time spent is greater than 50% in coordination of care (as documented) at patient's floor/unit and/or counseling patient: less than 15 minutes (1) Diarrhea Status: Chronic Assessment and plan: Will arrange for colonoscopy tomorrow. Will initiate Golytely prep this evening and check platelets. If platelet count is less than 50,000, he will receive an additional platelet transfusion. Current Visit: Yes (2) Weight loss Status: Chronic Current Visit: No (3) Thrombocytopenia Status: Chronic Current Visit: Yes (4) Hepatitis C antibody test positive Status: Chronic Current Visit: No Medical - PN: Qual - VTE Deep Vein Thrombosis/Pulmonary Embolism Present on Admission: No
--- NOTE | 2019-01-11 16:11 | Internal Med Progress Note ---
Medical - PN: Subj Patient information: Note initiated : 01/11/19 at 4:07 pm Service Date, if different from initiated Date: [] Patient: Erwin Gaxiola a 63 y/o M admitted on 01/09/19 for Cough, SOB. Chief Complaint: [] Interval history: Mr. Gaxiola is a 63 year old Male ESRd on HD, follows with Dr Chambers, presents to the ER being brought by the daugthe for shortness of bereath, weakness and dizziness. The patient in the ER reports he feels ok, but on further review it seems that after his previous discharge from this facility (admitted for PNA), he was doing well for a short period of time, he then started to feel like he was having some chest congestion, tired and fatigued, he became progressively more short of breath, and eventually patient was short of breath with minimal activity. he was brought to the ER for further evaluation. He had subjective sensation of chills and feverish, but never actually had a fever. Its seems that he also has been non compliant with his medications. During the previous dialysis session patient was dizzy and according to the ER notes needed IV fluids. the patient does report some choking 2-3 weeks ago on food. On presentation to the ER, patient was afebrile temperature 97.8, heart rate 81, blood pressure 71/44 respirations 28 he was saturating 84% and was placed on 2 L of oxygen. Chest x-ray shows bibasilar infiltrate worse than the previous x- ray likely aspiration also has right-sided pleural effusion, Labs show hemoglobin of 9.8, WBC 13.68 8.9% neutrophils platelets 35 this is chronically low lactic acid is 1.6, potassium 3.3 sodium 130 bicarbonate 31 creatinine 3.2 glucose 53, repeat glucose was 74 The patient is being admitted to the hospital for further management, Dr Chambers consulted from the ER. The patient has chr diarrhea and has been scheduled for outpatient colonoscopy, it seems there is some difficulty in getting this done. 01/10 Patient seen and examined, no acute overnight events, sitting comfortably in bed. Denies any chest pain, shortness of breath is better, no dizziness. No abdominal pain. C. difficile is negative. Blood pressure stable overnight, no acute events on telemetry. 01/11 Patient seen and examined, no acute overnight events, denies any complaints. Endoscopy done today negative as per verbal report. Plan for colonoscopy tomorrow. Hemodynamically stable continue IV antibiotics for now Educated patient need for cessation of chronic use of marijuana Pertinent ROS: Denies headache, dizziness Denies chest pain, palpitations Denies cough or shortness of breath Denies abdominal pain, nausea or vomiting. - Constitutional Vitals: Vital Signs Temp Pulse Resp BP Pulse Ox 97.2 F 66 20 95/66 97 01/11/19 13:00 01/11/19 09:45 01/11/19 13:00 01/11/19 13:00 01/11/19 13:00 Period Temp Pulse Resp BP Sys/William Pulse Ox Last 24 Hr 97.2 F-100.1 F 61-94 12-33 73-114/49-74 94-100 Intake and Output 01/11/19 01/11/19 01/11/19 05:59 13:59 21:59 Intake Total 510 530 Balance 510 530 Intake & Output: Intake & Output 01/11/19 01/11/19 01/11/19 05:59 13:59 21:59 Intake Total 510 530 Balance 510 530 Intake: IV 50 50 Zosyn 2.25 gm In Dextrose 5% in 50 50 Water 50 ml @ 100 mls/hr IV Q12 [facility] Rx#:[id number] Oral 480 Blood Product 460 Other: Meal Lunch Percent of Meal Consumed 100% Feeding Ability Assist with Tray Set Up Stool Size Large Stool Color Brown Yellow Stool Consistency Liquid Loose # Bowel Movements 1 # of times incontinent of 1 Bowels Exam: Constitutional; Afebrile, cooperative, alert, not in distress. Thin frail gentleman hardly any muscle mass Respiratory system: Air Entry equal on both sides, No crackles or wheezing, no rhonchi. CVS- Rate rhythm regular, S1,S2 heard, no gallop, no rub. 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 Medical - PN: Obj Da - Labs CBC & Chem 7: 01/11/19 04:10 01/11/19 04:10 Labs: Abnormal Lab Results 01/11/19 01/11/19 01/10/19 04:10 04:10 03:40 WBC RBC 2.78 L Hgb 8.7 L Hct 27.1 L POC Hct RDW 16.2 H Plt Count 96 L Gran % 84.4 H Lymph % (Auto) 11.2 L Gran # Lymph # (Auto) 1.0 L POC Sodium Sodium POC Potassium Potassium 3.0 L POC Chloride Chloride 95 L Carbon Dioxide POC BUN BUN 29 H 60 H Creatinine 2.4 H 4.3 H POC Creatinine Glucose POC Glucose Uric Acid 1.9 L Calcium 8.4 L POC WB Ioniz Calcium Phosphorus 2.3 L Total Creatine Kinase NT-Pro-B Natriuret Pep Total Protein 5.8 L Albumin 1.9 L 2.0 L Globulin 3.9 H 4.2 H Albumin/Globulin Ratio 0.5 L 0.5 L 01/10/19 01/09/19 01/09/19 03:40 12:28 12:28 WBC 13.6 H RBC 2.84 L 3.09 L Hgb 8.9 L 9.8 L Hct 27.2 L 29.8 L POC Hct 30.0 L RDW 15.6 H 15.5 H Plt Count 36 L* 35 L* Gran % 89.0 H 88.9 H Lymph % (Auto) 7.4 L 9.1 L Gran # 9.7 H 12.1 H Lymph # (Auto) 0.8 L 1.2 L POC Sodium 132 L Sodium 130 L POC Potassium 3.2 L Potassium POC Chloride 90 L Chloride 90 L Carbon Dioxide 31 H POC BUN 39 H BUN 45 H Creatinine 3.2 H POC Creatinine 3.5 H Glucose 53 L POC Glucose 55 L Uric Acid Calcium POC WB Ioniz Calcium 1.14 L Phosphorus Total Creatine Kinase 20 L NT-Pro-B Natriuret Pep Total Protein Albumin 2.2 L Globulin 4.4 H Albumin/Globulin Ratio 0.5 L 01/09/19 12:22 WBC RBC Hgb Hct POC Hct RDW Plt Count Gran % Lymph % (Auto) Gran # Lymph # (Auto) POC Sodium Sodium POC Potassium Potassium POC Chloride Chloride Carbon Dioxide POC BUN BUN Creatinine POC Creatinine Glucose POC Glucose Uric Acid Calcium POC WB Ioniz Calcium Phosphorus Total Creatine Kinase NT-Pro-B Natriuret Pep 3258.0 H Total Protein Albumin Globulin Albumin/Globulin Ratio Meds: Medications Acetaminophen (Tylenol) 650 mg PO Q4-6HP PRN PRN Reason: PAIN/FEVER > 101 Calcium Acetate (Phoslo) 667 mg PO TIDCC [facility] Last Admin: 03/21/19 11:20 Dose: Not Given Documented by: Cyanocobalamin (Vitamin B12) 1,000 mcg IM DAILY [facility] Stop: 01/17/19 13:07 Last Admin: 01/11/19 10:51 Dose: 1,000 mcg Documented by: Dextrose (Dextrose 50%) 0 ml IV UD PRN PRN Reason: Hypoglycemia Diagnostic Test (Pha) (Accu-Chek) 1 each FS [facility] Last Admin: 01/11/19 11:17 Dose: 1 each Documented by: Glucose (Insta-Glucose) 15 gm PO PRN PRN PRN Reason: Hypoglycemia Piperacillin Sod/Tazobactam (Sod 2.25 gm/ Dextrose) 50 mls @ 100 mls/hr IV Q12 [facility]; Protocol Last Infusion: 01/11/19 13:57 Dose: Infused Documented by: Insulin Human Lispro (Humalog) 0 unit SQ [facility]; Protocol Last Admin: 01/11/19 11:17 Dose: Not Given Documented by: Ketamine HCl (Ketamine Hcl) 50 mg IV ONCE PRN PRN Reason: Sedation Stop: 01/11/19 16:56 Loperamide HCl (Imodium) 2 mg PO UD PRN PRN Reason: Diarrhea Megestrol Acetate (Megace) 40 mg PO DAILY [facility] Last Admin: 01/11/19 07:31 Dose: Not Given Documented by: Midazolam HCl (Versed) 0 mg IV ONCE [facility] Stop: 01/11/19 16:56 Last Admin: 01/11/19 09:27 Dose: 2 mg Documented by: Midodrine (Midodrine Hcl) 5 mg PO TID@0800,1200,1700 [facility] Last Admin: 01/11/19 11:20 Dose: 5 mg Documented by: Multivit/Ca Carb/B Cmplx/FA/Prenat (Diatx) 1 tab PO BID [facility] Last Admin: 01/11/19 07:31 Dose: Not Given Documented by: Naloxone HCl (Narcan) 0.1 mg IV Q2MIN PRN PRN Reason: Opiate Reversal Ondansetron HCl (Zofran) 4 mg IV Q4-6HP PRN PRN Reason: Nausea And Vomiting Pantoprazole Sodium (Protonix) 40 mg PO QAMAC [facility] Last Admin: 01/11/19 07:30 Dose: 40 mg Documented by: Polyethylene Glycol/Electrolytes (Golytely) 4,000 ml PO ONCE ONE Stop: 01/11/19 17:01 Propofol (Diprivan) 0 mg IV ONCE [facility] Stop: 01/11/19 16:56 Last Admin: 01/11/19 09:27 Dose: 30 mg Documented by: Sevelamer Carbonate (Renvela) 1,600 mg PO TIDCC [facility] Last Admin: 01/11/19 11:21 Dose: Not Given Documented by: Sodium Chloride (Saline Flush) 10 ml IV Q8 [facility] Last Admin: 01/11/19 13:57 Dose: 10 ml Documented by: Vancomycin HCl (Vancomycin Per Pharmacy) 1 order IV UD [facility]; Protocol Medical - PN: A/P - Time Spent With Patient Total time spent is greater than 50% in coordination of care (as documented) at patient's floor/unit and/or counseling patient: - Narrative A/P Narrative: A/P Pneumonia -HCAP, Aspiration pneumonia, -sputum cx, blood cx sent, cultures pending -IV vancomycin and zosyn for now -procalcitonin is 14.75 on admit Sepsis _bp stable, lactic acid is normal pt has chronically low bp Hypotension -chr issue, on midodrine, not sure if is compliant -was on 5mg bid, increase dose to 5mg tid and monitor Aspiration -get Speech eval -possible barium swallow if needed. chronic Diarrhea/ Failure to thrive -EGD negative, -apreciate GI consult, colonoscopy in AM . ESRd -on HD, followed by Dr Chambers Thrombocytopenia -chr stable, etiology? due to hep c? not sure if has seen hematology. -S/p platlet tranfusion for colonoscopy and EGD scopy at the request of GI sever malnourishment -cachetic individual, BMI 14.4 -dietary consult -reported that he does not eat much, has chr diarrhea - he is on megace to continue, monitor dietary intake -PEG tube was being considered it seems at one time, but I feel that his main issue is THC use, -he remains on IPN during HD -Will see how he does when not at home, and his diet, presently difficult to evaluate given we are pursuing EGD/Colonoscopy -he is on a regular diet. Hep C outpatient follow up -genotype added at the rest of GI they will follow results. Anemia -due to esrd, DM ssi insulin for glucose control DVT SCD Full code Medical - PN: Qual - VTE Deep Vein Thrombosis/Pulmonary Embolism Present on Admission: No
[2019-01-11] MEDS ORDERED: PEG 3350/NA SULF,BICARB,CL/KCL 4,000 ML ORAL.SOL PO ONE (17:00)
--- NOTE | 2019-01-11 17:04 | EGD Procedure Note ---
EGD Procedure Notes - Procedure Information Patient information: Note initiated : 01/11/19 at 5:02 pm Service Date: 01/11/19 Patient: Erwin Gaxiola 63 y/o M admitted on 01/09/19 for Cough, SOB. Pre-op diagnosis general: Weight loss. Diarrhea. Post-Op Diagnosis general: Normal EGD. Procedure: Esophogogastroduodenoscopy Procedure Narrative: The procedure, alternatives and risks were discussed with the patient and the patient's questions were answered. With endoscopist-administered intravenous sedation, the Olympus video endoscope was introduced into the esophagus. The esophagus, stomach, and duodenum were examined sequentially. No abnormality seen. There is no esophagitis nor hiatal hernia. The gastric mucosa, antrum, pyloric ring and duodenum were otherwise normal. Specifically, his small bowel looked endoscopically normal and, in light of his thrombocytopenia, the decision was made to not biopsy the normal mucosa. The scope was withdrawn. Assessment: Normal EGD. Proceed with colonoscopy.
--- NOTE | 2019-01-11 22:03 | Nephrology Progress Note ---
Subjective Patient information: Note initiated : 01/11/19 at 10:01 pm Service Date, if different from initiated Date: [] Patient: Erwin Gaxiola 63 y/o M admitted on 01/09/19 for Cough, SOB. Chief Complaint: []Still not eating enough. Having diarrhea. Objective - Vital Signs Vital signs: Vital Signs Temp Pulse Pulse Resp BP BP Pulse Ox 01/11/19 20:00 98.4 F 64 16 96/61 96 01/11/19 16:00 97.8 F 16 117/69 97 01/11/19 13:00 97.2 F 20 95/66 97 01/11/19 11:45 97.5 F 20 114/69 99 01/11/19 11:30 97.5 F 20 114/73 94 01/11/19 11:00 20 104/63 96 01/11/19 10:30 20 84/74 98 01/11/19 10:15 22 73/51 96 01/11/19 10:00 97.2 F 24 H 75/51 99 01/11/19 09:45 66 12 78/50 100 01/11/19 09:41 65 12 78/51 100 01/11/19 09:32 64 12 74/49 100 01/11/19 09:30 66 12 77/49 97 01/11/19 09:26 61 15 96/50 96 01/11/19 08:00 96 01/11/19 07:14 97.2 F 66 18 92/63 97 01/11/19 04:00 97.9 F 65 16 94/60 98 01/11/19 00:00 99.0 F 73 16 91/62 94 Intake and Output 01/11/19 01/11/19 01/12/19 13:59 21:59 05:59 Intake Total 530 360 Balance 530 360 Intake: IV 50 Zosyn 2.25 gm In Dextrose 5% in 50 Water 50 ml @ 100 mls/hr IV Q12 [facility] Rx#:[id number] Oral 480 360 Other: Meal Lunch Percent of Meal Consumed 100% Feeding Ability Assist with Tray Set Up Stool Size Large Stool Color Brown Yellow Stool Consistency Liquid Loose # Bowel Movements 1 # of times incontinent of 1 Bowels Weight 98 lb Patient Weight 01/12/19 05:59 Weight 98 lb Intake & Output: Intake & Output 0301/11/19 01/12/19 13:59 21:59 05:59 Intake Total 530 360 Balance 530 360 Weight 98 lb Intake: IV 50 Zosyn 2.25 gm In Dextrose 5% in 50 Water 50 ml @ 100 mls/hr IV Q12 [facility] Rx#:[id number] Oral 480 360 Other: Meal Lunch Percent of Meal Consumed 100% Feeding Ability Assist with Tray Set Up Stool Size Large Stool Color Brown Yellow Stool Consistency Liquid Loose # Bowel Movements 1 # of times incontinent of 1 Bowels - General Appearance General appearance: cachectic EENT: ATNC Neck: no JVD Respiratory: no kyphosis Cardiology: no murmurs Gastrointestinal: normoactive bowel sounds Neurologic: no focal deficit - Lab 01/11/19 17:13 01/11/19 04:10 Most recent lab results Calcium 8.4 mg/dl (8.6-10.4) L 01/11/19 04:10 Phosphorus 2.3 mg/dL (2.7-4.5) L 01/11/19 04:10 Magnesium 1.8 mg/dL (1.6-2.5) 01/11/19 04:10 Assessment and Plan (1) ESRD (end stage renal disease) on dialysis Status: Chronic Comment: dialysis tomorrow. Loosing weight. I agree with placement. I discussed with the patient. He is reluctant. Will talk again. Diarrhea.
[2019-01-12] MEDS: 0.9 % SODIUM CHLORIDE 10 ML SYRINGE IV SCH ×3 (06:12→21:40)
[2019-01-12 06:53] LABS: Basophils # (Auto) 0 K/mcL (0.0-0.3); Basophils % (Auto) 0.2 % (0.0-2.0); Eosinophils # (Auto) 0 K/mcL (0.0-0.7); Eosinophils % (Auto) 0.5 % (0.0-7.0); Granulocytes % (Auto) 78.1 % (38.0-78.0); Lymphocytes # (Auto) 1.4 K/mcL (1.5-4.8); Lymphocytes % (Auto) 17.5 % (15.5-49.0); Mean Cell Volume 96.4 fL (80.0-100.0); Mean Corpuscular HGB Conc 32.8 g/dL (31.0-36.0); Monocytes # (Auto) 0.3 K/mcL (0.1-0.9); Monocytes % (Auto) 3.7 % (1.0-12.0); Platelet Count 70 K/mcL (140-440); RBC 2.93 M/mcL (4.50-5.90)
[2019-01-12 07:11] LABS: ALT/SGPT < 5 U/l (0-40); Albumin 1.9 gm/dL (3.2-5.2); Albumin/Globulin Ratio 0.5 (1.0-2.3); Alkaline Phosphatase 65 U/L (39-117); Bilirubin,Direct 0.3 mg/dL (0.0-0.3); Blood Urea Nitrogen 37 mg/dl (8-23); Gamma Glutamyl Transpeptidase 12 U/L (8-61); Uric Acid 3.4 mg/dL (2.5-8.0)
[2019-01-12] MEDS: INSULIN LISPRO 1 UNIT/0.01 ML UNIT SQ SCH ×4 (07:39→21:44)
[2019-01-12] MEDS: PANTOPRAZOLE 40 MG TABLET PO SCH (07:40)
[2019-01-12] MEDS ORDERED: KETAMINE HCL 50 MG/ML ML IV PRN (07:57)
[2019-01-12] MEDS ORDERED: PROPOFOL 200 MG/20 ML VIAL IV SCH (08:00)
[2019-01-12] MEDS ORDERED: MIDAZOLAM 2 MG/2 ML VIAL IV SCH (08:00)
[2019-01-12] MEDS: MIDODRINE 5 MG TABLET PO SCH ×3 (08:31→17:47)
[2019-01-12] MEDS: SEVELAMER 800 MG TABLET PO SCH ×3 (08:32→17:47)
[2019-01-12] MEDS: CALCIUM ACETATE 667 MG CAPSULE PO SCH ×3 (08:32→17:46)
[2019-01-12] MEDS: FOLIC ACID/VITAMIN B COMP W-C 1 TAB TABLET PO SCH ×2 (08:32→21:44)
[2019-01-12] MEDS: MEGESTROL ACETATE 400 MG/10 ML ORAL.SUSP PO SCH (08:32)
[2019-01-12] MEDS ORDERED: MIDAZOLAM 2 MG/2 ML VIAL ONE (09:12)
[2019-01-12] MEDS ORDERED: PROPOFOL 20 ML IV ONE (09:12)
[2019-01-12] MEDS: CYANOCOBALAMIN 1,000 MCG/ML VIAL IM SCH (10:53)
[2019-01-12] MEDS: PIPERACILLIN SODIUM/TAZOBACTAM 2.25 GM in DEXTROSE 5% IN WATER 50 ML IV SCH ×2 (10:53→21:40)
--- NOTE | 2019-01-12 13:37 | Internal Med Progress Note ---
Medical - PN: Subj Patient information: Note initiated : 01/12/19 at 1:33 pm Service Date, if different from initiated Date: [] Patient: Erwin Gaxiola a 63 y/o M admitted on 01/09/19 for Cough, SOB. Chief Complaint: [] Interval history: Mr. Gaxiola is a 63 year old Male ESRd on HD, follows with Dr Chambers, presents to the ER being brought by the daugthe for shortness of bereath, weakness and dizziness. The patient in the ER reports he feels ok, but on further review it seems that after his previous discharge from this facility (admitted for PNA), he was doing well for a short period of time, he then started to feel like he was having some chest congestion, tired and fatigued, he became progressively more short of breath, and eventually patient was short of breath with minimal activity. he was brought to the ER for further evaluation. He had subjective sensation of chills and feverish, but never actually had a fever. Its seems that he also has been non compliant with his medications. During the previous dialysis session patient was dizzy and according to the ER notes needed IV fluids. the patient does report some choking 2-3 weeks ago on food. On presentation to the ER, patient was afebrile temperature 97.8, heart rate 81, blood pressure 71/44 respirations 28 he was saturating 84% and was placed on 2 L of oxygen. Chest x-ray shows bibasilar infiltrate worse than the previous x- ray likely aspiration also has right-sided pleural effusion, Labs show hemoglobin of 9.8, WBC 13.68 8.9% neutrophils platelets 35 this is chronically low lactic acid is 1.6, potassium 3.3 sodium 130 bicarbonate 31 creatinine 3.2 glucose 53, repeat glucose was 74 The patient is being admitted to the hospital for further management, Dr Chambers consulted from the ER. The patient has chr diarrhea and has been scheduled for outpatient colonoscopy, it seems there is some difficulty in getting this done. 01/10 Patient seen and examined, no acute overnight events, sitting comfortably in bed. Denies any chest pain, shortness of breath is better, no dizziness. No abdominal pain. C. difficile is negative. Blood pressure stable overnight, no acute events on telemetry. 01/11 Patient seen and examined, no acute overnight events, denies any complaints. Endoscopy done today negative as per verbal report. Plan for colonoscopy tomorrow. Hemodynamically stable continue IV antibiotics for now Educated patient need for cessation of chronic use of marijuana 01/12 Patient seen and examined, no acute overnight events. Colonoscopy was negative for any masses, few polyps found according to the GI provider. Biopsies taken to rule out microscopic colitis. Labs are stable patient hemodynamically stable feels hungry Continue IV antibiotics for now he is going to get hemodialysis today. Will observe his diet given his failure to thrive and lack of appetite when he is at home. See how his intake is with regular food Pertinent ROS: Denies headache, dizziness Denies chest pain, palpitations Denies cough or shortness of breath Denies abdominal pain, nausea or vomiting. - Constitutional Vitals: Vital Signs Temp Pulse Resp BP Pulse Ox 97.2 F 66 16 115/70 100 01/12/19 12:30 01/12/19 13:25 01/12/19 10:38 01/12/19 13:25 01/12/19 10:38 Period Temp Pulse Resp BP Sys/William Pulse Ox Last 24 Hr 96.9 F-98.4 F 61-76 16-18 85-144/61-88 93-100 Intake and Output 01/11/19 01/12/19 01/12/19 21:59 05:59 13:59 Intake Total 360 50 Balance 360 50 Weight 98 lb Intake & Output: Intake & Output 01/11/19 01/12/19 01/12/19 21:59 05:59 13:59 Intake Total 360 50 Balance 360 50 Weight 98 lb Intake: IV 50 Zosyn 2.25 gm In Dextrose 5% in 50 Water 50 ml @ 100 mls/hr IV Q12 [facility] Rx#:[id number] Oral 360 Other: Stool Size Large Stool Color Brown Yellow Stool Consistency Watery # Bowel Movements 1 # of times incontinent of 1 Bowels Exam: Constitutional; Afebrile, cooperative, alert, not in distress. cachetic ind ividual Respiratory system: Air Entry equal on both sides, No crackles or wheezing, no rhonchi. CVS- Rate rhythm regular, S1,S2 heard, no gallop, no rub. 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 Medical - PN: Obj Da - Labs CBC & Chem 7: 01/12/19 04:15 01/12/19 04:15 Labs: Abnormal Lab Results 01/12/19 01/12/19 01/11/19 04:15 04:15 17:13 RBC 2.93 L Hgb 9.3 L Hct 28.3 L RDW 16.0 H Plt Count 70 L 71 L Gran % 78.1 H Lymph % (Auto) Gran # Lymph # (Auto) 1.4 L Sodium 131 L Potassium 3.1 L Chloride 92 L BUN 37 H Creatinine 3.7 H Uric Acid Calcium 8.4 L Phosphorus Total Protein Albumin 1.9 L Globulin 4.1 H Albumin/Globulin Ratio 0.5 L 01/11/19 01/11/19 01/10/19 04:10 04:10 03:40 RBC 2.78 L Hgb 8.7 L Hct 27.1 L RDW 16.2 H Plt Count 96 L Gran % 84.4 H Lymph % (Auto) 11.2 L Gran # Lymph # (Auto) 1.0 L Sodium Potassium 3.0 L Chloride 95 L BUN 29 H 60 H Creatinine 2.4 H 4.3 H Uric Acid 1.9 L Calcium 8.4 L Phosphorus 2.3 L Total Protein 5.8 L Albumin 1.9 L 2.0 L Globulin 3.9 H 4.2 H Albumin/Globulin Ratio 0.5 L 0.5 L 01/10/19 03:40 RBC 2.84 L Hgb 8.9 L Hct 27.2 L RDW 15.6 H Plt Count 36 L* Gran % 89.0 H Lymph % (Auto) 7.4 L Gran # 9.7 H Lymph # (Auto) 0.8 L Sodium Potassium Chloride BUN Creatinine Uric Acid Calcium Phosphorus Total Protein Albumin Globulin Albumin/Globulin Ratio Meds: Medications Acetaminophen (Tylenol) 650 mg PO Q4-6HP PRN PRN Reason: PAIN/FEVER > 101 Calcium Acetate (Phoslo) 667 mg PO TIDCC [facility] Last Admin: 01/12/19 11:24 Dose: Not Given Documented by: Cyanocobalamin (Vitamin B12) 1,000 mcg IM DAILY [facility] Stop: 01/17/19 13:07 Last Admin: 01/12/19 10:53 Dose: 1,000 mcg Documented by: Dextrose (Dextrose 50%) 0 ml IV UD PRN PRN Reason: Hypoglycemia Diagnostic Test (Pha) (Accu-Chek) 1 each FS ACHS [facility] Last Admin: 01/12/19 10:55 Dose: 1 each Documented by: Diagnostic Test (Pha) (Accu-Chek) 1 each FS ONCE [facility] Stop: 01/12/19 15:58 Last Admin: 01/12/19 08:31 Dose: Not Given Documented by: Glucose (Insta-Glucose) 15 gm PO PRN PRN PRN Reason: Hypoglycemia Piperacillin Sod/Tazobactam (Sod 2.25 gm/ Dextrose) 50 mls @ 100 mls/hr IV Q12 [facility]; Protocol Last Admin: 01/12/19 10:53 Dose: Not Given Documented by: Insulin Human Lispro (Humalog) 0 unit SQ [facility]; Protocol Last Admin: 01/12/19 10:57 Dose: Not Given Documented by: Ketamine HCl (Ketamine Hcl) 50 mg IV ONCE PRN PRN Reason: Sedation Stop: 01/12/19 15:58 Loperamide HCl (Imodium) 2 mg PO UD PRN PRN Reason: Diarrhea Megestrol Acetate (Megace) 40 mg PO DAILY [facility] Last Admin: 01/12/19 08:32 Dose: Not Given Documented by: Midazolam HCl (Versed) 0 mg IV ONCE [facility] Stop: 01/12/19 15:58 Last Admin: 01/12/19 10:18 Dose: 2 mg Documented by: Midodrine (Midodrine Hcl) 5 mg PO TID@0800,1200,1700 [facility] Last Admin: 01/12/19 11:32 Dose: 5 mg Documented by: Multivit/Ca Carb/B Cmplx/FA/Prenat (Diatx) 1 tab PO BID [facility] Last Admin: 01/12/19 08:32 Dose: Not Given Documented by: Naloxone HCl (Narcan) 0.1 mg IV Q2MIN PRN PRN Reason: Opiate Reversal Ondansetron HCl (Zofran) 4 mg IV Q4-6HP PRN PRN Reason: Nausea And Vomiting Pantoprazole Sodium (Protonix) 40 mg PO QAMAC [facility] Last Admin: 01/12/19 07:40 Dose: 40 mg Documented by: Propofol (Diprivan) 0 mg IV ONCE [facility] Stop: 01/12/19 15:58 Last Admin: 01/12/19 10:18 Dose: 40 mg Documented by: Sevelamer Carbonate (Renvela) 1,600 mg PO TIDCC [facility] Last Admin: 01/12/19 11:24 Dose: Not Given Documented by: Sodium Chloride (Saline Flush) 10 ml IV Q8 [facility] Last Admin: 01/12/19 06:12 Dose: 10 ml Documented by: Vancomycin HCl (Vancomycin Per Pharmacy) 1 order IV UD [facility]; Protocol Medical - PN: A/P - Time Spent With Patient Total time spent is greater than 50% in coordination of care (as documented) at patient's floor/unit and/or counseling patient: - Narrative A/P Narrative: A/P Pneumonia -HCAP, Aspiration pneumonia, -sputum cx, blood cx sent, cultures pending, neg results so far -IV vancomycin and zosyn for now -procalcitonin is 14.75 on admit -repeat CXR in AM to see if his aspiration is worsening, improving? Sepsis _bp stable, lactic acid is normal pt has chronically low bp -appears resolved now. Hypotension -chr issue, on midodrine, not sure if is compliant -was on 5mg bid, increase dose to 5mg tid and monitor Aspiration -get Speech eval, await eval, not been able to do given multiple procedures planned. -possible barium swallow if needed. chronic Diarrhea/ Failure to thrive -EGD negative, -apreciate GI consult, colonoscopy done, biopsy taken . ESRd -on HD, followed by Dr Chambers _hd today Thrombocytopenia -chr stable, etiology? due to hep c? not sure if has seen hematology. - sever malnourishment -cachetic individual, BMI 14.4 -dietary consult -reported that he does not eat much, has chr diarrhea - he is on megace to continue, monitor dietary intake -PEG tube was being considered it seems at one time, but I feel that his main issue is THC use, -he remains on IPN during HD -Will see how he does when not at home, and his diet in hospital. Pt does feel hungry -he is on a regular diet. Hep C outpatient follow up -genotype added at the rest of GI they will follow results. Anemia -due to esrd, DM ssi insulin for glucose control DVT SCD Full code Medical - PN: Qual - VTE Deep Vein Thrombosis/Pulmonary Embolism Present on Admission: No
[2019-01-12 17:07] LABS: Vancomycin,Random 11.2 ug/mL
--- NOTE | 2019-01-12 17:09 | Nephrology Progress Note ---
Subjective Patient information: Note initiated : 01/12/19 at 5:07 pm Service Date, if different from initiated Date: [] Patient: Erwin Gaxiola 63 y/o M admitted on 01/09/19 for Cough, SOB. Chief Complaint: Diarrhea is better. Eating better. Workup has been essentially unremarkable. Objective - Vital Signs Vital signs: Vital Signs Temp Pulse Pulse Resp BP BP Pulse Ox 01/12/19 16:15 80 108/69 01/12/19 16:10 98.3 F 82 102/65 01/12/19 15:55 80 98/63 01/12/19 15:40 80 103/64 01/12/19 15:25 80 103/66 01/12/19 15:10 80 99/65 01/12/19 14:55 80 98/64 01/12/19 14:40 80 103/64 01/12/19 14:25 80 102/65 01/12/19 14:10 77 108/66 01/12/19 13:55 70 99/65 01/12/19 13:40 70 109/69 01/12/19 13:25 66 115/70 01/12/19 13:10 67 114/70 01/12/19 12:55 73 138/88 01/12/19 12:40 73 144/87 01/12/19 12:30 97.2 F 66 122/71 01/12/19 10:38 61 16 85/66 100 01/12/19 10:31 61 16 91/72 100 01/12/19 10:27 61 16 91/72 100 01/12/19 09:53 96.9 F L 72 16 103/70 95 01/12/19 06:48 96.9 F L 76 16 96/64 93 01/12/19 03:58 97.5 F 65 18 102/64 95 01/12/19 00:00 98 F 62 16 105/62 97 01/11/19 20:00 98.4 F 64 16 96/61 96 Intake and Output 01/12/19 01/12/19 01/12/19 05:59 13:59 21:59 Intake Total 50 Output Total 1000 Balance 50 -1000 Intake: IV 50 Zosyn 2.25 gm In Dextrose 5% in 50 Water 50 ml @ 100 mls/hr IV Q12 [facility] Rx#:[id number] Output: Hemodialysis UF 1000 Other: Stool Size Large Stool Color Brown Yellow Stool Consistency Watery # Bowel Movements 1 # of times incontinent of 1 Bowels Intake & Output: Intake & Output 01/12/19 01/12/19 01/12/19 05:59 13:59 21:59 Intake Total 50 Output Total 1000 Balance 50 -1000 Intake: IV 50 Zosyn 2.25 gm In Dextrose 5% in 50 Water 50 ml @ 100 mls/hr IV Q12 [facility] Rx#:[id number] Output: Hemodialysis UF 1000 Other: Stool Size Large Stool Color Brown Yellow Stool Consistency Watery # Bowel Movements 1 # of times incontinent of 1 Bowels - General Appearance General appearance: cachectic EENT: ATNC Neck: no JVD Respiratory: no kyphosis Cardiology: no murmurs Gastrointestinal: normoactive bowel sounds Integumentary: no rash Neurologic: no focal deficit - Lab 01/12/19 04:15 01/12/19 04:15 Most recent lab results Calcium 8.4 mg/dl (8.6-10.4) L 01/12/19 04:15 Phosphorus 2.9 mg/dL (2.7-4.5) 01/12/19 04:15 Magnesium 1.9 mg/dL (1.6-2.5) 01/12/19 04:15 Assessment and Plan (1) ESRD (end stage renal disease) on dialysis Status: Chronic Comment: dialysis today and tolerated well. No UF. Loosing weight. I agree with placement. Diarrhea. Workup negative and he is better.
[2019-01-12] MEDS ORDERED: VANCOMYCIN 1,000 MG in 0.9 % SODIUM CHLORIDE 250 ML IV ONE (21:00)
[2019-01-13 05:26] LABS: Basophils # (Auto) 0 K/mcL (0.0-0.3); Basophils % (Auto) 0.2 % (0.0-2.0); Eosinophils # (Auto) 0.1 K/mcL (0.0-0.7); Eosinophils % (Auto) 1.5 % (0.0-7.0); Granulocytes % (Auto) 68.1 % (38.0-78.0); Lymphocytes # (Auto) 1.4 K/mcL (1.5-4.8); Lymphocytes % (Auto) 24.6 % (15.5-49.0); Mean Cell Volume 96.7 fL (80.0-100.0); Mean Corpuscular HGB Conc 32.4 g/dL (31.0-36.0); Monocytes # (Auto) 0.3 K/mcL (0.1-0.9); Monocytes % (Auto) 5.6 % (1.0-12.0); Platelet Count 57 K/mcL (140-440); RBC 2.83 M/mcL (4.50-5.90)
[2019-01-13 05:37] LABS: ALT/SGPT < 5 U/l (0-40); Albumin 1.9 gm/dL (3.2-5.2); Albumin/Globulin Ratio 0.5 (1.0-2.3); Alkaline Phosphatase 53 U/L (39-117); Bilirubin,Direct < 0.2 mg/dL (0.0-0.3); Blood Urea Nitrogen 23 mg/dl (8-23); Gamma Glutamyl Transpeptidase 10 U/L (8-61); Uric Acid 2.1 mg/dL (2.5-8.0)
[2019-01-13] MEDS: 0.9 % SODIUM CHLORIDE 10 ML SYRINGE IV SCH ×3 (06:11→21:10)
[2019-01-13] MEDS: INSULIN LISPRO 1 UNIT/0.01 ML UNIT SQ SCH ×4 (07:08→21:10)
[2019-01-13] MEDS: PANTOPRAZOLE 40 MG TABLET PO SCH (07:08)
[2019-01-13] MEDS: SEVELAMER 800 MG TABLET PO SCH ×3 (08:00→17:17)
[2019-01-13] MEDS: CYANOCOBALAMIN 1,000 MCG/ML VIAL IM SCH (08:21)
[2019-01-13] MEDS: FOLIC ACID/VITAMIN B COMP W-C 1 TAB TABLET PO SCH ×2 (08:21→21:08)
[2019-01-13] MEDS: MIDODRINE 5 MG TABLET PO SCH ×3 (08:21→17:17)
[2019-01-13] MEDS: MEGESTROL ACETATE 400 MG/10 ML ORAL.SUSP PO SCH (08:22)
[2019-01-13] MEDS: PIPERACILLIN SODIUM/TAZOBACTAM 2.25 GM in DEXTROSE 5% IN WATER 50 ML IV SCH ×2 (08:23→21:08)
--- NOTE | 2019-01-13 09:24 | Internal Med Progress Note ---
Medical - PN: Subj Patient information: Note initiated : 01/13/19 at 9:22 am Service Date, if different from initiated Date: [] Patient: Erwin Gaxiola a 63 y/o M admitted on 01/09/19 for Cough, SOB. Chief Complaint: [diarrhea, weight loss] Interval history: Mr. Gaxiola is a 63 year old M who is admitted with chronic diarrhea, weight loss. Colonoscopy yesterday revealed polyps but no overt colitis. Has had good appetite here in hospital and weight is up 4lbs this week. Has had 1 loose BM daily and is not requiring loperamide. - Constitutional Vitals: Vital Signs Temp Pulse Resp BP Pulse Ox 98.2 F 70 16 98/64 97 01/13/19 06:34 01/13/19 03:59 01/13/19 06:34 01/13/19 06:34 01/13/19 06:34 Period Temp Pulse Resp BP Sys/William Pulse Ox Last 24 Hr 96.9 F-98.5 F 61-82 16-16 85-144/54-88 92-100 Intake and Output 01/12/19 01/13/19 01/13/19 21:59 05:59 13:59 Intake Total 180 550 700 Output Total 1000 Balance -820 550 700 Weight 98 lb Intake & Output: Intake & Output 01/12/19 01/13/19 01/13/19 21:59 05:59 13:59 Intake Total 180 550 700 Output Total 1000 Balance -820 550 700 Weight 98 lb Intake: IV 300 Zosyn 2.25 gm In Dextrose 5% in 50 Water 50 ml @ 100 mls/hr IV Q12 [facility] Rx#:[id number] Oral 180 250 700 Output: Hemodialysis UF 1000 Other: Meal Breakfast Percent of Meal Consumed 100% Feeding Ability Independent Stool Size Moderate Stool Color Brown Stool Consistency Loose # of times incontinent of 1 Bowels General appearance: no acute distress, thin - Head Head exam: Present: atraumatic, normal inspection, normocephalic - Neck Neck exam: Present: normal inspection - Respiratory Additional comments: Decreased left side breath sounds, improved rhonchi, bilateral crackles in bases - Cardiovascular Cardiovascular exam: Present: normal rate and rhythm. Absent: gallop, systolic murmur - GI/Abdominal GI/Abdominal exam: Present: normal bowel sounds, soft. Absent: hernia, organomegaly, tenderness - Neurological Exam Neurological exam: Present: alert, normal gait - Psychiatric Psychiatric exam: Present: normal affect, normal mood - Skin Skin exam: Present: dry, normal color, warm Medical - PN: Obj Da - Labs CBC & Chem 7: 01/13/19 04:05 01/13/19 04:05 Labs: Abnormal Lab Results 01/13/19 01/13/19 01/12/19 04:05 04:05 04:15 RBC 2.83 L Hgb 8.9 L Hct 27.3 L RDW 16.0 H Plt Count 57 L Gran % Lymph % (Auto) Lymph # (Auto) 1.4 L Sodium 131 L Potassium 3.1 L Chloride 92 L BUN 37 H Creatinine 2.2 H 3.7 H Uric Acid 2.1 L Calcium 8.0 L 8.4 L Phosphorus 2.2 L Lactate Dehydrogenase 87 L Total Protein Albumin 1.9 L 1.9 L Globulin 4.1 H 4.1 H Albumin/Globulin Ratio 0.5 L 0.5 L 01/12/19 01/11/19 01/11/19 04:15 17:13 04:10 RBC 2.93 L Hgb 9.3 L Hct 28.3 L RDW 16.0 H Plt Count 70 L 71 L Gran % 78.1 H Lymph % (Auto) Lymph # (Auto) 1.4 L Sodium Potassium 3.0 L Chloride BUN 29 H Creatinine 2.4 H Uric Acid 1.9 L Calcium 8.4 L Phosphorus 2.3 L Lactate Dehydrogenase Total Protein 5.8 L Albumin 1.9 L Globulin 3.9 H Albumin/Globulin Ratio 0.5 L 01/11/19 04:10 RBC 2.78 L Hgb 8.7 L Hct 27.1 L RDW 16.2 H Plt Count 96 L Gran % 84.4 H Lymph % (Auto) 11.2 L Lymph # (Auto) 1.0 L Sodium Potassium Chloride BUN Creatinine Uric Acid Calcium Phosphorus Lactate Dehydrogenase Total Protein Albumin Globulin Albumin/Globulin Ratio Meds: Medications Acetaminophen (Tylenol) 650 mg PO Q4-6HP PRN PRN Reason: PAIN/FEVER > 101 Calcium Acetate (Phoslo) 667 mg PO TIDCC [facility] Last Admin: 01/12/19 17:46 Dose: 667 mg Documented by: Cyanocobalamin (Vitamin B12) 1,000 mcg IM DAILY [facility] Stop: 01/17/19 13:07 Last Admin: 01/13/19 08:21 Dose: 1,000 mcg Documented by: Dextrose (Dextrose 50%) 0 ml IV UD PRN PRN Reason: Hypoglycemia Diagnostic Test (Pha) (Accu-Chek) 1 each FS ACHS [facility] Last Admin: 01/13/19 07:07 Dose: 1 each Documented by: Glucose (Insta-Glucose) 15 gm PO PRN PRN PRN Reason: Hypoglycemia Piperacillin Sod/Tazobactam (Sod 2.25 gm/ Dextrose) 50 mls @ 100 mls/hr IV Q12 [facility]; Protocol Last Admin: 01/13/19 08:23 Dose: 100 mls/hr Documented by: Insulin Human Lispro (Humalog) 0 unit SQ [facility]; Protocol Last Admin: 01/13/19 07:08 Dose: Not Given Documented by: Loperamide HCl (Imodium) 2 mg PO UD PRN PRN Reason: Diarrhea Megestrol Acetate (Megace) 40 mg PO DAILY [facility] Last Admin: 01/13/19 08:22 Dose: 40 mg Documented by: Midodrine (Midodrine Hcl) 5 mg PO TID@0800,1200,1700 [facility] Last Admin: 01/13/19 08:21 Dose: 5 mg Documented by: Multivit/Ca Carb/B Cmplx/FA/Prenat (Diatx) 1 tab PO BID [facility] Last Admin: 01/13/19 08:21 Dose: 1 tab Documented by: Naloxone HCl (Narcan) 0.1 mg IV Q2MIN PRN PRN Reason: Opiate Reversal Ondansetron HCl (Zofran) 4 mg IV Q4-6HP PRN PRN Reason: Nausea And Vomiting Pantoprazole Sodium (Protonix) 40 mg PO QAMAC [facility] Last Admin: 01/13/19 07:08 Dose: 40 mg Documented by: Sevelamer Carbonate (Renvela) 1,600 mg PO TIDCC [facility] Last Admin: 01/12/19 17:47 Dose: 1,600 mg Documented by: Sodium Chloride (Saline Flush) 10 ml IV Q8 [facility] Last Admin: 01/13/19 06:11 Dose: 10 ml Documented by: Vancomycin HCl (Vancomycin Per Pharmacy) 1 order IV UD [facility]; Protocol Medical - PN: A/P - Time Spent With Patient Total time spent is greater than 50% in coordination of care (as documented) at patient's floor/unit and/or counseling patient: less than 15 minutes (1) Diarrhea Status: Chronic Assessment and plan: Suspect diabetic diarrhea. Can take up to 8 Imodium daily to control. Poor oral intake may be contributing. Hospitalist considering SNF placement. Will follow up with patient as outpatient. Please reconsult if needed. Current Visit: Yes (2) Weight loss Status: Chronic Current Visit: No (3) Thrombocytopenia Status: Chronic Current Visit: Yes (4) Hepatitis C antibody test positive Status: Chronic Current Visit: No Medical - PN: Qual - VTE Deep Vein Thrombosis/Pulmonary Embolism Present on Admission: No
--- NOTE | 2019-01-13 10:00 | XRay Report ---
INDICATION: Follow-up pneumonia TECHNIQUE: PA and lateral upright chest x-ray COMPARISON: Previous chest x-rays dated 01/09/2019, 11/27/2018, 02/25/2017 FINDINGS:Again demonstrated are bilateral lower lobe infiltrates consistent with pneumonia. Infiltrates remain slightly worse since 11/27/2018 but there has been subtle interval improvement since 01/09/2019. No new abnormalities. There are findings consistent with a small right pleural effusion. This is unchanged. Heart size and vascularity are unremarkable. No pulmonary edema or pulmonary congestion. IMPRESSION: 1. Bilateral lower lobe infiltrates 2. Slight interval improvement since 01/09/2019. Continued follow-up recommended Interpreted and Authenticated by: Maycol Fish 01/13/19
[2019-01-13] MEDS: CALCIUM ACETATE 667 MG CAPSULE PO SCH (10:59)
--- NOTE | 2019-01-13 12:44 | Internal Med Progress Note ---
Medical - PN: Subj Patient information: Note initiated : 01/13/19 at 12:41 pm Service Date, if different from initiated Date: [] Patient: Erwin Gaxiola a 63 y/o M admitted on 01/09/19 for Cough, SOB. Chief Complaint: [] Interval history: Mr. Gaxiola is a 63 year old Male ESRd on HD, follows with Dr Chambers, presents to the ER being brought by the daugthe for shortness of bereath, weakness and dizziness. The patient in the ER reports he feels ok, but on further review it seems that after his previous discharge from this facility (admitted for PNA), he was doing well for a short period of time, he then started to feel like he was having some chest congestion, tired and fatigued, he became progressively more short of breath, and eventually patient was short of breath with minimal activity. he was brought to the ER for further evaluation. He had subjective sensation of chills and feverish, but never actually had a fever. Its seems that he also has been non compliant with his medications. During the previous dialysis session patient was dizzy and according to the ER notes needed IV fluids. the patient does report some choking 2-3 weeks ago on food. On presentation to the ER, patient was afebrile temperature 97.8, heart rate 81, blood pressure 71/44 respirations 28 he was saturating 84% and was placed on 2 L of oxygen. Chest x-ray shows bibasilar infiltrate worse than the previous x- ray likely aspiration also has right-sided pleural effusion, Labs show hemoglobin of 9.8, WBC 13.68 8.9% neutrophils platelets 35 this is chronically low lactic acid is 1.6, potassium 3.3 sodium 130 bicarbonate 31 creatinine 3.2 glucose 53, repeat glucose was 74 The patient is being admitted to the hospital for further management, Dr Chambers consulted from the ER. The patient has chr diarrhea and has been scheduled for outpatient colonoscopy, it seems there is some difficulty in getting this done. 01/10 Patient seen and examined, no acute overnight events, sitting comfortably in bed. Denies any chest pain, shortness of breath is better, no dizziness. No abdominal pain. C. difficile is negative. Blood pressure stable overnight, no acute events on telemetry. 01/11 Patient seen and examined, no acute overnight events, denies any complaints. Endoscopy done today negative as per verbal report. Plan for colonoscopy tomorrow. Hemodynamically stable continue IV antibiotics for now Educated patient need for cessation of chronic use of marijuana 01/12 Patient seen and examined, no acute overnight events. Colonoscopy was negative for any masses, few polyps found according to the GI provider. Biopsies taken to rule out microscopic colitis. Labs are stable patient hemodynamically stable feels hungry Continue IV antibiotics for now he is going to get hemodialysis today. Will observe his diet given his failure to thrive and lack of appetite when he is at home. See how his intake is with regular food 01/13 Patient seen and examined, no acute overnight events, patient has no complaints no concerns. Pathology of colonoscopy is pending. Labs are stable. Chest x-ray shows slight improvement in patient's pneumonia. Patient does not have much fever chills and feels like he is improving. I observe the patient's oral intake he has had 100% lunch yesterday, 100% breakfast this morning seems like he has a reasonably good appetite. I think his poor oral intake has more to do with his daily marijuana use as well as social issues rather than patient having decreased oral intake due to medical reason. Pertinent ROS: Denies headache, dizziness Denies chest pain, palpitations Denies cough or shortness of breath Denies abdominal pain, nausea or vomiting. - Constitutional Vitals: Vital Signs Temp Pulse Resp BP Pulse Ox 97.5 F 69 22 136/86 100 01/13/19 12:00 01/13/19 12:00 01/13/19 12:00 01/13/19 12:00 01/13/19 12:00 Period Temp Pulse Resp BP Sys/William Pulse Ox Last 24 Hr 97.5 F-98.5 F 66-82 16- 97-139/54-88 92-100 Intake and Output 01/12/19 01/13/19 01/13/19 21:59 05:59 13:59 Intake Total 180 550 700 Output Total 1000 Balance -820 550 700 Weight 98 lb 98 lb Patient Weight 01/14/19 05:59 Weight 98 lb Intake & Output: Intake & Output 01/12/19 01/13/19 01/13/19 21:59 05:59 13:59 Intake Total 180 550 700 Output Total 1000 Balance -820 550 700 Weight 98 lb 98 lb Intake: IV 300 Zosyn 2.25 gm In Dextrose 5% in 50 Water 50 ml @ 100 mls/hr IV Q12 [facility] Rx#:[id number] Oral 180 250 700 Output: Hemodialysis UF 1000 Other: Meal Breakfast Percent of Meal Consumed 100% Feeding Ability Independent Stool Size Moderate Stool Color Brown Stool Consistency Loose # of times incontinent of 1 Bowels Exam: Constitutional; Afebrile, cooperative, alert, not in distress. think cachetic individual Respiratory system: Air Entry equal on both sides, bibasilar crackles CVS- Rate rhythm regular, S1,S2 heard, no gallop, no rub. Abdomen- Soft nontender abdomen, no organomegaly, no tenderness, no guarding or rigidity, [employer]- AOOx3, moving all extremities, no gross focal deficit noted. Medical - PN: Obj Da - Labs CBC & Chem 7: 01/13/19 04:05 01/13/19 04:05 Labs: Abnormal Lab Results 01/13/19 01/13/19 01/12/19 04:05 04:05 04:15 RBC 2.83 L Hgb 8.9 L Hct 27.3 L RDW 16.0 H Plt Count 57 L Gran % Lymph % (Auto) Lymph # (Auto) 1.4 L Sodium 131 L Potassium 3.1 L Chloride 92 L BUN 37 H Creatinine 2.2 H 3.7 H Uric Acid 2.1 L Calcium 8.0 L 8.4 L Phosphorus 2.2 L Lactate Dehydrogenase 87 L Total Protein Albumin 1.9 L 1.9 L Globulin 4.1 H 4.1 H Albumin/Globulin Ratio 0.5 L 0.5 L 01/12/19 01/11/19 01/11/19 04:15 17:13 04:10 RBC 2.93 L Hgb 9.3 L Hct 28.3 L RDW 16.0 H Plt Count 70 L 71 L Gran % 78.1 H Lymph % (Auto) Lymph # (Auto) 1.4 L Sodium Potassium 3.0 L Chloride BUN 29 H Creatinine 2.4 H Uric Acid 1.9 L Calcium 8.4 L Phosphorus 2.3 L Lactate Dehydrogenase Total Protein 5.8 L Albumin 1.9 L Globulin 3.9 H Albumin/Globulin Ratio 0.5 L 01/11/19 04:10 RBC 2.78 L Hgb 8.7 L Hct 27.1 L RDW 16.2 H Plt Count 96 L Gran % 84.4 H Lymph % (Auto) 11.2 L Lymph # (Auto) 1.0 L Sodium Potassium Chloride BUN Creatinine Uric Acid Calcium Phosphorus Lactate Dehydrogenase Total Protein Albumin Globulin Albumin/Globulin Ratio Meds: Medications Acetaminophen (Tylenol) 650 mg PO Q4-6HP PRN PRN Reason: PAIN/FEVER > 101 Cyanocobalamin (Vitamin B12) 1,000 mcg IM DAILY [facility] Stop: 01/17/19 13:07 Last Admin: 01/13/19 08:21 Dose: 1,000 mcg Documented by: Dextrose (Dextrose 50%) 0 ml IV UD PRN PRN Reason: Hypoglycemia Diagnostic Test (Pha) (Accu-Chek) 1 each FS [facility] Last Admin: 01/13/19 11:49 Dose: 1 each Documented by: Glucose (Insta-Glucose) 15 gm PO PRN PRN PRN Reason: Hypoglycemia Piperacillin Sod/Tazobactam (Sod 2.25 gm/ Dextrose) 50 mls @ 100 mls/hr IV Q12 [facility]; Protocol Last Admin: 01/13/19 08:23 Dose: 100 mls/hr Documented by: Insulin Human Lispro (Humalog) 0 unit SQ [facility]; Protocol Last Admin: 01/13/19 11:49 Dose: Not Given Documented by: Loperamide HCl (Imodium) 2 mg PO UD PRN PRN Reason: Diarrhea Megestrol Acetate (Megace) 40 mg PO DAILY [facility] Last Admin: 01/13/19 08:22 Dose: 40 mg Documented by: Midodrine (Midodrine Hcl) 5 mg PO TID@0800,1200,1700 [facility] Last Admin: 01/13/19 12:12 Dose: 5 mg Documented by: Multivit/Ca Carb/B Cmplx/FA/Prenat (Diatx) 1 tab PO BID [facility] Last Admin: 01/13/19 08:21 Dose: 1 tab Documented by: Naloxone HCl (Narcan) 0.1 mg IV Q2MIN PRN PRN Reason: Opiate Reversal Ondansetron HCl (Zofran) 4 mg IV Q4-6HP PRN PRN Reason: Nausea And Vomiting Pantoprazole [facility]) [facility] Last Admin: 01/13/19 07:08 Dose: 40 mg Documented by: Sevelamer Carbonate (Renvela) 1,600 mg PO TIDCC [facility] Last Admin: 01/13/19 12:12 Dose: 1,600 mg Documented by: Sodium Chloride (Saline Flush) 10 ml IV Q8 [facility] Last Admin: 01/13/19 06:11 Dose: 10 ml Documented by: Vancomycin HCl (Vancomycin Per Pharmacy) 1 order IV UD [facility]; Protocol Medical - PN: A/P - Time Spent With Patient Total time spent is greater than 50% in coordination of care (as documented) at patient's floor/unit and/or counseling patient: - Narrative A/P Narrative: A/P Pneumonia -HCAP, Aspiration pneumonia, -sputum cx, blood cx sent, cultures pending, neg results so far -IV vancomycin and zosyn for now -procalcitonin is 14.75 on admit -repeat CXR in AM to see if his aspiration is worsening, improving? Sepsis _bp stable, lactic acid is normal pt has chronically low bp -appears resolved now. Hypotension -chr issue, on midodrine, not sure if is compliant -was on 5mg bid, increase dose to 5mg tid and monitor Aspiration -get Speech eval, await eval, not been able to do given multiple procedures planned. -possible barium swallow if needed. -Seems to eat quite well without any s/o aspiration chronic Diarrhea/ Failure to thrive -EGD negative, -apreciate GI consult, colonoscopy done, biopsy taken . ESRd -on HD, followed by Dr Chambers _ Thrombocytopenia -chr stable, etiology? due to hep c? not sure if has seen hematology. - Sever malnourishment cachetic individual, bmi 14.9 temporal wasting The patient seems to have quite a reasonable appetite, eating 100% of his meals in the hospital. If I recollect correctly when I took care of this gentleman during his previous admission he was eating quite well. I think his poor oral intake is more to with his social situation, possibly access to food rather than a medical reason for poor intake. I do not think a PEG tube or feeding tube is reasonable in this individual Hep C outpatient follow up -genotype added at the rest of GI they will follow results. Anemia -due to esrd, DM ssi insulin for glucose control DVT SCD Full code Medical - PN: Qual - VTE Deep Vein Thrombosis/Pulmonary Embolism Present on Admission: No
[2019-01-14 05:11] LABS: Basophils # (Auto) 0 K/mcL (0.0-0.3); Basophils % (Auto) 0.4 % (0.0-2.0); Eosinophils # (Auto) 0.1 K/mcL (0.0-0.7); Eosinophils % (Auto) 2.1 % (0.0-7.0); Granulocytes % (Auto) 63.4 % (38.0-78.0); Lymphocytes # (Auto) 1.6 K/mcL (1.5-4.8); Lymphocytes % (Auto) 29.7 % (15.5-49.0); Mean Cell Volume 96.5 fL (80.0-100.0); Mean Corpuscular HGB Conc 32.7 g/dL (31.0-36.0); Monocytes # (Auto) 0.2 K/mcL (0.1-0.9); Monocytes % (Auto) 4.4 % (1.0-12.0); Platelet Count 54 K/mcL (140-440); RBC 2.78 M/mcL (4.50-5.90); Red Cell Distribution Width 16.1 % (11.5-14.5)
[2019-01-14] MEDS: 0.9 % SODIUM CHLORIDE 10 ML SYRINGE IV SCH ×3 (05:20→20:29)
[2019-01-14 05:42] LABS: ALT/SGPT < 5 U/l (0-40); Albumin/Globulin Ratio 0.5 (1.0-2.3); Alkaline Phosphatase 61 U/L (39-117); Bilirubin,Direct < 0.2 mg/dL (0.0-0.3); Blood Urea Nitrogen 30 mg/dl (8-23); Gamma Glutamyl Transpeptidase 9 U/L (8-61); Uric Acid 3.6 mg/dL (2.5-8.0)
[2019-01-14] MEDS: PANTOPRAZOLE 40 MG TABLET PO SCH (07:07)
[2019-01-14] MEDS: INSULIN LISPRO 1 UNIT/0.01 ML UNIT SQ SCH ×4 (07:07→20:29)
[2019-01-14] MEDS: SEVELAMER 800 MG TABLET PO SCH ×3 (08:04→18:18)
[2019-01-14] MEDS: FOLIC ACID/VITAMIN B COMP W-C 1 TAB TABLET PO SCH ×2 (08:04→20:29)
[2019-01-14] MEDS: MIDODRINE 5 MG TABLET PO SCH ×3 (08:04→18:18)
[2019-01-14] MEDS: MEGESTROL ACETATE 400 MG/10 ML ORAL.SUSP PO SCH (08:05)
[2019-01-14] MEDS: CYANOCOBALAMIN 1,000 MCG/ML VIAL IM SCH (08:05)
[2019-01-14] MEDS: PIPERACILLIN SODIUM/TAZOBACTAM 2.25 GM in DEXTROSE 5% IN WATER 50 ML IV SCH (10:15)
--- NOTE | 2019-01-14 11:35 | Internal Med Progress Note ---
Medical - PN: Subj Patient information: Note initiated : 01/14/19 at 11:33 am Service Date, if different from initiated Date: [] Patient: Erwin Gaxiola a 63 y/o M admitted on 01/09/19 for Cough, SOB. Chief Complaint: [] Interval history: Mr. Gaxiola is a 63 year old Male ESRd on HD, follows with Dr Chambers, presents to the ER being brought by the daugthe for shortness of bereath, weakness and dizziness. The patient in the ER reports he feels ok, but on further review it seems that after his previous discharge from this facility (admitted for PNA), he was doing well for a short period of time, he then started to feel like he was having some chest congestion, tired and fatigued, he became progressively more short of breath, and eventually patient was short of breath with minimal activity. he was brought to the ER for further evaluation. He had subjective sensation of chills and feverish, but never actually had a fever. Its seems that he also has been non compliant with his medications. During the previous dialysis session patient was dizzy and according to the ER notes needed IV fluids. the patient does report some choking 2-3 weeks ago on food. On presentation to the ER, patient was afebrile temperature 97.8, heart rate 81, blood pressure 71/44 respirations 28 he was saturating 84% and was placed on 2 L of oxygen. Chest x-ray shows bibasilar infiltrate worse than the previous x- ray likely aspiration also has right-sided pleural effusion, Labs show hemoglobin of 9.8, WBC 13.68 8.9% neutrophils platelets 35 this is chronically low lactic acid is 1.6, potassium 3.3 sodium 130 bicarbonate 31 creatinine 3.2 glucose 53, repeat glucose was 74 The patient is being admitted to the hospital for further management, Dr Chambers consulted from the ER. The patient has chr diarrhea and has been scheduled for outpatient colonoscopy, it seems there is some difficulty in getting this done. 01/10 Patient seen and examined, no acute overnight events, sitting comfortably in bed. Denies any chest pain, shortness of breath is better, no dizziness. No abdominal pain. C. difficile is negative. Blood pressure stable overnight, no acute events on telemetry. 01/11 Patient seen and examined, no acute overnight events, denies any complaints. Endoscopy done today negative as per verbal report. Plan for colonoscopy tomorrow. Hemodynamically stable continue IV antibiotics for now Educated patient need for cessation of chronic use of marijuana 01/12 Patient seen and examined, no acute overnight events. Colonoscopy was negative for any masses, few polyps found according to the GI provider. Biopsies taken to rule out microscopic colitis. Labs are stable patient hemodynamically stable feels hungry Continue IV antibiotics for now he is going to get hemodialysis today. Will observe his diet given his failure to thrive and lack of appetite when he is at home. See how his intake is with regular food 01/13 Patient seen and examined, no acute overnight events, patient has no complaints no concerns. Pathology of colonoscopy is pending. Labs are stable. Chest x-ray shows slight improvement in patient's pneumonia. Patient does not have much fever chills and feels like he is improving. I observe the patient's oral intake he has had 100% lunch yesterday, 100% breakfast this morning seems like he has a reasonably good appetite. I think his poor oral intake has more to do with his daily marijuana use as well as social issues rather than patient having decreased oral intake due to medical reason. 01/14 Patient seen and examined, lying in bed comfortable, no new complaints d/c IV abx, switch to oral abx levofloxacin and metronidazole Pt is tolerating his oral meals quite well. Pertinent ROS: Denies headache, dizziness Denies chest pain, palpitations Denies cough or shortness of breath Denies abdominal pain, nausea or vomiting. - Constitutional Vitals: Vital Signs Temp Pulse Resp BP Pulse Ox 98.3 F 74 16 119/78 95 01/14/19 07:14 01/14/19 04:00 01/14/19 07:14 01/14/19 07:14 01/14/19 07:14 Period Temp Pulse Resp BP Sys/William Pulse Ox Last 24 Hr 96.7 F-98.3 F 69-78 14-22 108-136/62-88 92-100 Intake and Output 01/13/19 01/14/19 01/14/19 21:59 05:59 13:59 Intake Total 1130 540 Balance 1130 540 Weight 97 lb Intake & Output: Intake & Output 01/13/19 01/14/19 01/14/19 21:59 05:59 13:59 Intake Total 1130 540 Balance 1130 540 Weight 97 lb Intake: IV 50 Zosyn 2.25 gm In Dextrose 5% in 50 Water 50 ml @ 100 mls/hr IV Q12 [facility] Rx#:[id number] Oral 1080 540 Other: Meal Dinner Percent of Meal Consumed 75% Feeding Ability Independent Stool Size Small Stool Color Brown Brown Stool Consistency Loose Liquid # Bowel Movements 1 1 # of times incontinent of 1 1 Bowels Exam: Constitutional; Afebrile, cooperative, alert, not in distress. Respiratory system: Air Entry equal on both sides, bibasilar crackles, pts breath sounds improving. CVS- Rate rhythm regular, S1,S2 heard, no gallop, no rub. 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 Medical - PN: Obj Da - Labs CBC & Chem 7: 01/14/19 04:15 01/14/19 04:15 Labs: Abnormal Lab Results 01/14/19 01/14/19 01/13/19 04:15 04:15 04:05 RBC 2.78 L Hgb 8.8 L Hct 26.8 L RDW 16.1 H Plt Count 54 L Gran % Lymph # (Auto) Sodium Potassium Chloride BUN 30 H Creatinine 3.5 H 2.2 H Glucose 112 H Uric Acid 2.1 L Calcium 8.0 L Phosphorus 2.2 L Lactate Dehydrogenase 85 L 87 L Albumin 2.0 L 1.9 L Globulin 4.1 H 4.1 H Albumin/Globulin Ratio 0.5 L 0.5 L 01/13/19 01/12/19 01/12/19 04:05 04:15 04:15 RBC 2.83 L 2.93 L Hgb 8.9 L 9.3 L Hct 27.3 L 28.3 L RDW 16.0 H 16.0 H Plt Count 57 L 70 L Gran % 78.1 H Lymph # (Auto) 1.4 L 1.4 L Sodium 131 L Potassium 3.1 L Chloride 92 L BUN 37 H Creatinine 3.7 H Glucose Uric Acid Calcium 8.4 L Phosphorus Lactate Dehydrogenase Albumin 1.9 L Globulin 4.1 H Albumin/Globulin Ratio 0.5 L 01/11/19 17:13 RBC Hgb Hct RDW Plt Count 71 L Gran % Lymph # (Auto) Sodium Potassium Chloride BUN Creatinine Glucose Uric Acid Calcium Phosphorus Lactate Dehydrogenase Albumin Globulin Albumin/Globulin Ratio Meds: Medications Acetaminophen (Tylenol) 650 mg PO Q4-6HP PRN PRN Reason: PAIN/FEVER > 101 Cyanocobalamin (Vitamin B12) 1,000 mcg IM DAILY [facility] Stop: 01/17/19 13:07 Last Admin: 01/14/19 08:05 Dose: 1,000 mcg Documented by: Dextrose (Dextrose 50%) 0 ml IV UD PRN PRN Reason: Hypoglycemia Diagnostic Test (Pha) (Accu-Chek) 1 each FS [facility] Last Admin: 01/14/19 07:07 Dose: 1 each Documented by: Glucose (Insta-Glucose) 15 gm PO PRN PRN PRN Reason: Hypoglycemia Insulin Human Lispro (Humalog) 0 unit SQ [facility]; Protocol Last Admin: 01/14/19 07:07 Dose: Not Given Documented by: Levofloxacin (Levaquin) 750 mg PO Q48H [facility]; Protocol Loperamide HCl (Imodium) 2 mg PO UD PRN PRN Reason: Diarrhea Megestrol Acetate (Megace) 40 mg PO DAILY [facility] Last Admin: 01/14/19 08:05 Dose: 40 mg Documented by: Metronidazole (Flagyl) 500 mg PO Q8 [facility]; Protocol Midodrine (Midodrine Hcl) 5 mg PO TID@0800,1200,1700 [facility] Last Admin: 01/14/19 08:04 Dose: 5 mg Documented by: Multivit/Ca Carb/B Cmplx/FA/Prenat (Diatx) 1 tab PO BID [facility] Last Admin: 01/14/19 08:04 Dose: 1 tab Documented by: Naloxone HCl (Narcan) 0.1 mg IV Q2MIN PRN PRN Reason: Opiate Reversal Ondansetron HCl (Zofran) 4 mg IV Q4-6HP PRN PRN Reason: Nausea And Vomiting Pantoprazole Sodium (Protonix) 40 mg PO QAMAC [facility] Last Admin: 01/14/19 07:07 Dose: 40 mg Documented by: Sevelamer Carbonate (Renvela) 1,600 mg PO TIDCC [facility] Last Admin: 01/14/19 08:04 Dose: 1,600 mg Documented by: Sodium Chloride (Saline Flush) 10 ml IV Q8 [facility] Last Admin: 01/14/19 05:20 Dose: 10 ml Documented by: Medical - PN: A/P - Time Spent With Patient Total time spent is greater than 50% in coordination of care (as documented) at patient's floor/unit and/or counseling patient: - Narrative A/P Narrative: A/P Pneumonia -HCAP, Aspiration pneumonia, -sputum cx, blood cx sent, cultures pending, neg results so far -IV vancomycin and zosyn , d/c iv abx, switch to levofloxacin and metronidazole -procalcitonin is 14.75 on admit Sepsis -bp stable, lactic acid is normal -pt has chronically low bp -resolved now. Hypotension -chr issue, on midodrine, not sure if is compliant -was on 5mg bid, increase dose to 5mg tid -bp is stable on this dose. Aspiration -get Speech eval, await eval, not been able to do given multiple procedures planned. -possible barium swallow if needed. -Seems to eat quite well without any s/o aspiration -await speech therapy notes, chronic Diarrhea/ Failure to thrive -EGD negative, -apreciate GI consult, colonoscopy done, biopsy taken . ESRd -on HD, followed by Dr Chambers _ Thrombocytopenia -chr stable, etiology? due to hep c? not sure if has seen hematology. - Sever malnourishment cachetic individual, bmi 14.9 temporal wasting The patient seems to have quite a reasonable appetite, eating 100% of his meals in the hospital. If I recollect correctly when I took care of this gentleman during his previous admission he was eating quite well. I think his poor oral intake is more to with his social situation, possibly access to food rather than a medical reason for poor intake. I do not think a PEG tube or feeding tube is reasonable in this individual Hep C outpatient follow up -genotype added at the rest of GI they will follow results. Anemia -due to esrd, DM ssi insulin for glucose control DVT SCD Full code anticipate d/c to snf in am Medical - PN: Qual - VTE Deep Vein Thrombosis/Pulmonary Embolism Present on Admission: No
[2019-01-14] MEDS ORDERED: LEVOFLOXACIN 750 MG TABLET PO ONE (12:00)
[2019-01-14] MEDS: metroNIDAZOLE 500 MG TABLET PO SCH ×2 (14:27→21:54)
--- NOTE | 2019-01-14 16:23 | Discharge Summary ---
Medical - DS: Prov Patient information: Note initiated : 01/14/19 at 4:20 pm Service Date, if different from initiated Date: [] Patient: Erwin Gaxiola 63 y/o M admitted on 01/09/19 for Cough, SOB. Chief Complaint: [] Date of admission: 01/09/19 19:16 Discharge date: 01/15/19 Primary care physician: Erwin Fuentes Consults: 01/09/19 15:11 Consult to Physician [CONS] Stat Comment: Consulting Provider: Narendra Chambers Reason For Exam: Physician to Consult 01/09/19 15:16 Consult to Physician [CONS] Stat Comment: Consulting Provider: Mirna Louie Reason For Exam: Physician to Consult 01/10/19 05:58 Consult to Physician [CONS] Routine Comment: chr diarrhea Consulting Provider: Arcelia Emmanuel Reason For Exam: Physician to Consult Medical - DS: Meds - Discharge Medications Prescriptions: Levofloxacin [Levaquin] 500 mg PO Q48H #2 tab metroNIDAZOLE [Flagyl] 500 mg PO Q8 #6 tab Midodrine [Midodrine HCl] 5 mg PO TID #30 tab Active and Home Medications: Home Medications Loperamide HCl [Loperamide] 4 mg PO PRN PRN MDD 16 mg 11/27/18 [History Confirmed 01/09/19 Last Taken Unknown] Megestrol Acetate [Megace] 40 mg PO DAILY 11/27/18 [History Confirmed 01/09/19 Last Taken Unknown] Midodrine [Midodrine HCl] 5 mg PO BID 11/27/18 [History Confirmed 01/09/19 Last Taken Unknown] calcium acetate 667 mg capsule 667 mg PO TID cap 12/29/18 [History Confirmed 01/09/19 Last Taken Unknown] sevelamer carbonate 800 mg tablet 1,600 mg PO TID tab 12/29/18 [History Confirmed 01/09/19 Last Taken Unknown] Medical - DS: Hosp Hospital course: Mr. Gaxiola is a 63 year old M Mr. Gaxiola is a 63 year old Male ESRd on HD, follows with Dr Chambers, presents to the ER being brought by the [facility] for shortness of bereath, weakness and dizziness. The patient in the ER reports he feels ok, but on further review it seems that after his previous discharge from this facility (admitted for PNA), he was doing well for a short period of time, he then started to feel like he was having some chest congestion, tired and fatigued, he became progressively more short of breath, and eventually patient was short of breath with minimal activity. he was brought to the ER for further evaluation. He had subjective sensation of chills and feverish, but never actually had a fever. Its seems that he also has been non compliant with his medications. During the previous dialysis session patient was dizzy and according to the ER notes needed IV fluids. the patient does report some choking 2-3 weeks ago on food. On presentation to the ER, patient was afebrile temperature 97.8, heart rate 81, blood pressure 71/44 respirations 28 he was saturating 84% and was placed on 2 L of oxygen. Chest x-ray shows bibasilar infiltrate worse than the previous x-ray likely aspiration also has right-sided pleural effusion, Labs show hemoglobin of 9.8, WBC 13.68 8.9% neutrophils platelets 35 this is chronically low lactic acid is 1.6, potassium 3.3 sodium 130 bicarbonate 31 creatinine 3.2 glucose 53, repeat glucose was 74 The patient is being admitted to the hospital for further management, Dr Chambers consulted from the ER. The patient has chr diarrhea and has been scheduled for outpatient colonoscopy, it seems there is some difficulty in getting this done. 01/10 Patient seen and examined, no acute overnight events, sitting comfortably in bed. Denies any chest pain, shortness of breath is better, no dizziness. No abdominal pain. C. difficile is negative. Blood pressure stable overnight, no acute events on telemetry. 01/11 Patient seen and examined, no acute overnight events, denies any complaints. Endoscopy done today negative as per verbal report. Plan for colonoscopy t omorrow. Hemodynamically stable continue IV antibiotics for now Educated patient need for cessation of chronic use of marijuana 01/12 Patient seen and examined, no acute overnight events. Colonoscopy was negative for any masses, few polyps found according to the GI provider. Biopsies taken to rule out microscopic colitis. Labs are stable patient hemodynamically stable feels hungry Continue IV antibiotics for now he is going to get hemodialysis today. Will observe his diet given his failure to thrive and lack of appetite when he is at home. See how his intake is with regular food 01/13 Patient seen and examined, no acute overnight events, patient has no complaints no concerns. Pathology of colonoscopy is pending. Labs are stable. Chest x-ray shows slight improvement in patient's pneumonia. Patient does not have much fever chills and feels like he is improving. I observe the patient's oral intake he has had 100% lunch yesterday, 100% breakfast this morning seems like he has a reasonably good appetite. I think his poor oral intake has more to do with his daily marijuana use as well as social issues rather than patient having decreased oral intake due to medical reason. 01/14 Patient seen and examined, lying in bed comfortable, no new complaints d/c IV abx, switch to oral abx levofloxacin and metronidazole Pt is tolerating his oral meals quite well. 01/15 No issues overnight, no new complaints. Patient stable for discharge Discharge diagnosis: Pneumonia sepsis aspiration chronic diarrhea failure to thrive Secondary discharge diagnosis: Aspiration end-stage renal disease thrombocytopenia severe malnourishment - Time Spent with Patient Total time spent providing and/or coordinating discharge services: Greater than 30 minutes Medical - DS: Exam - Constitutional Vitals: Vital Signs Temp Pulse Pulse Resp BP Pulse Ox 01/14/19 12:00 97.2 F 68 14 128/64 93 01/14/19 07:14 98.3 F 16 119/78 95 01/14/19 04:00 96.8 F L 74 16 122/62 95 01/14/19 00:00 97.1 F 72 14 114/74 98 01/13/19 19:21 16 97 01/13/19 19:14 96.7 F L 78 16 126/78 97 Intake and Output 01/14/19 01/14/19 01/14/19 05:59 13:59 21:59 Intake Total 540 50 Balance 540 50 Intake: IV 50 Oral 540 Other: Stool Size Small Stool Color Brown Stool Consistency Liquid # Bowel Movements 1 # of times incontinent of 1 Bowels Medical - DS: Data Labs on day of discharge: Labs from last 24 hours 01/14/19 01/14/19 04:15 04:15 WBC 5.3 RBC 2.78 L Hgb 8.8 L Hct 26.8 L MCV 96.5 MCH 31.5 MCHC 32.7 RDW 16.1 H Plt Count 54 L MPV 8.6 Gran % 63.4 Lymph % (Auto) 29.7 [place] % (Auto) 4.4 Eos % (Auto) 2.1 Baso % (Auto) 0.4 Gran # 3.4 Lymph # (Auto) 1.6 [place] # (Auto) 0.2 Eos # (Auto) 0.1 Baso # (Auto) 0 Sodium 137 Potassium 3.6 Chloride 101 Carbon Dioxide 27 Anion Gap 9.0 BUN 30 H Creatinine 3.5 H GFR Calculation 18 Glucose 112 H Uric Acid 3.6 Calcium 8.6 Phosphorus 2.8 Magnesium 2.0 Total Bilirubin 0.5 Direct Bilirubin < 0.2 GGT 9 AST 10 ALT < 5 Alkaline Phosphatase 61 Lactate Dehydrogenase 85 L Total Protein 6.1 Albumin 2.0 L Globulin 4.1 H Albumin/Globulin Ratio 0.5 L Triglycerides 56 Medical - DS: A/P - Patient/Caregiver Discharge Instructions Activity: increase activity as tolerated Diet: Dysphagia Mech Alter Additional Instructions: [facility] Schedule: Tuesday, Tuesday, Tuesday @ 5:20am Referral to see hematology in 1-2 weeks for thrombocytopenia Prescriptions: Levofloxacin [Levaquin] 500 mg PO Q48H #2 tab metroNIDAZOLE [Flagyl] 500 mg PO Q8 #6 tab Midodrine [Midodrine HCl] 5 mg PO TID #30 tab - Follow up Plan Follow up with: Erwin Fuentes MD [Primary Care Provider] - Arcelia Emmanuel ARNP [Nurse Practitioner] - Narendra Chambers MD [Physician] - Disposition: Xfer SNF Prognosis: Serious Rehab Potential: Fair I certify that the patient requires SNF services: Yes Overall status at discharge: patient is progressing back to baseline Medical - DS: Qual - VTE Deep Vein Thrombosis/Pulmonary Embolism Present on Admission: No
[2019-01-15] MEDS: 0.9 % SODIUM CHLORIDE 10 ML SYRINGE IV SCH (05:54)
[2019-01-15] MEDS: metroNIDAZOLE 500 MG TABLET PO SCH (05:54)
[2019-01-15 06:43] LABS: Basophils # (Auto) 0 K/mcL (0.0-0.3); Basophils % (Auto) 0.6 % (0.0-2.0); Eosinophils # (Auto) 0.1 K/mcL (0.0-0.7); Eosinophils % (Auto) 1.3 % (0.0-7.0); Granulocytes % (Auto) 65.5 % (38.0-78.0); Lymphocytes # (Auto) 1.4 K/mcL (1.5-4.8); Lymphocytes % (Auto) 28.1 % (15.5-49.0); Mean Cell Volume 96.9 fL (80.0-100.0); Mean Corpuscular HGB Conc 32.1 g/dL (31.0-36.0); Monocytes # (Auto) 0.2 K/mcL (0.1-0.9); Monocytes % (Auto) 4.5 % (1.0-12.0); Platelet Count 50 K/mcL (140-440); RBC 2.66 M/mcL (4.50-5.90); Red Cell Distribution Width 15.6 % (11.5-14.5)
[2019-01-15 07:28] LABS: ALT/SGPT < 5 U/l (0-40); Albumin 1.9 gm/dL (3.2-5.2); Albumin/Globulin Ratio 0.5 (1.0-2.3); Alkaline Phosphatase 64 U/L (39-117); Bilirubin,Direct < 0.2 mg/dL (0.0-0.3); Blood Urea Nitrogen 43 mg/dl (8-23); Gamma Glutamyl Transpeptidase 10 U/L (8-61); Uric Acid 4.7 mg/dL (2.5-8.0)
[2019-01-15] MEDS: PANTOPRAZOLE 40 MG TABLET PO SCH (08:01)
[2019-01-15] MEDS: SEVELAMER 800 MG TABLET PO SCH (08:01)
[2019-01-15] MEDS: MIDODRINE 5 MG TABLET PO SCH (08:01)
[2019-01-15] MEDS: INSULIN LISPRO 1 UNIT/0.01 ML UNIT SQ SCH (08:02)
[2019-01-15] MEDS: FOLIC ACID/VITAMIN B COMP W-C 1 TAB TABLET PO SCH (08:07)
[2019-01-15] MEDS: MEGESTROL ACETATE 400 MG/10 ML ORAL.SUSP PO SCH (08:08)
[2019-01-15] MEDS: CYANOCOBALAMIN 1,000 MCG/ML VIAL IM SCH (09:17)
--- NOTE | 2019-01-15 13:46 | Surgical Pathology Report ---
HISTOLOGY SPECIMEN MICROSCOPIC DIAGNOSIS SPECIMEN A - COLON, ASCENDING, POLYPECTOMY: -- TUBULAR ADENOMA. SPECIMEN B - COLON, DESCENDING, POLYPECTOMY: -- TUBULAR ADENOMA. SPECIMEN C - COLON, RANDOM, BIOPSY: -- NO DIAGNOSTIC ALTERATIONS. -- NO ARCHITECTURAL DISTORTION, ACTIVE COLITIS, GRANULOMAS OR MICROSCOPIC COLITIS IDENTIFIED. (DMT:adj) CLINICAL HISTORY Diarrhea. PROCEDURAL IMPRESSION Polyps; microscopic colitis (?). GROSS DESCRIPTION Specimen A: Received in formalin labeled ascending colon polyp, is a 0.3 cm fragment of agrawal tissue. Totally submitted - one cassette. Specimen B: Received in formalin labeled descending colon polyp, is a 1.7 cm pink-agrawal polyp-like fragment of tissue. Totally submitted - one cassette. Specimen C: Received in formalin labeled random colon biopsies, are nine fragments of agrawal tissue ranging in size from 0.2 to 0.8 cm. Totally submitted - one cassette. (KGW:domenic) Electronically Signed by: Rashad Burk M.D.
[2019-01-16] MEDS ORDERED: LEVOFLOXACIN 500 MG TABLET PO SCH (09:00)
--- NOTE | 2019-01-22 09:59 | Colonoscopy Procedure Note ---
Colonoscopy Procedure Notes - Procedure Information Patient information: Note initiated : 01/22/19 at 9:57 am Service Date: 01.12.2019 Patient: Erwin Gaxiola 63 y/o M admitted on 01/09/19 for Cough, SOB. Pre-op diagnosis general: Diarrhea. Post-op diagnosis general: Diarrhea. Query microscopic colitis. Procedure: Colonoscopy Procedure narrative: The procedure, alternatives and risks were discussed with the patient and the patient's questions were answered. With endoscopist administered intravenous sedation, the Olympus colonoscope was introduced into the rectum and advanced to the cecum. Ileocecal valve was identified, intubated, and several centimeters of the terminal ileum were examined. Colonic polyps were seen in the ascending and descending colon. The polyps were removed with a snare. They were retrieved for histological examination. Diverticula appear uncomplicated. Random colon biopsies were taken to check for microscopic colitis. Assessment: Diarrhea. Query microscopic colitis.
== END 2019-01-15 10:00 | DRG 871 ==
LOC: ED 12:06 → ICU 19:16 → MEDSUR 01-11 14:00
PROVIDERS: ADMIT Internal Medicine; ATTEND Internal Medicine
PROC: COLONBX (2019-01-12 09:45)

== ENCOUNTER 2019-03-17 15:11 | Inpatient (IN) ==
[2019-03-17] MEDS ORDERED: cefTRIAXone 2 GM in DEXTROSE 5% IN WATER 50 ML IV ONE (15:28)
--- NOTE | 2019-03-17 15:31 | Emergency Department Note ---
General Adult HPI - General Chief complaint: Recheck/Abnormal Lab/Rx Stated complaint: postive blood culture follow up Time Seen by Provider: 03/17/19 15:15 Source: patient Mode of arrival: ambulatory Limitations: no limitations - History of Present Illness HPI Narrative: 63-year-old male who was seen yesterday in our ER and got blood cultures done. Apparently he did well overnight but blood cultures came back positive for Streptococcus pneumoniae. Patient is on dialysis and has had hepatitis C and so is at high risk. Anyways Dr. Cox the infectious disease doctor called Dr. Alves this morning and advised him to admit the patient and then to start Rocephin and continue daily blood cultures. Patient comes back in response to our phone calls He sees Dr. Chambers for dialysis here on Tuesday - Related Data Home Medications Medication Instructions Recorded Confirmed Loperamide HCl [Loperamide] 4 mg PO PRN PRN MDD 16 mg 11/27/18 03/17/19 Megestrol Acetate [Megace] 40 mg PO DAILY 11/27/18 03/17/19 calcium acetate 667 mg capsule 667 mg PO TID cap 12/29/18 03/17/19 sevelamer carbonate 800 mg tablet 1,600 mg PO TID tab 12/29/18 03/17/19 food supplement, lactose-reduced 1 each PO TID ml 02/02/19 03/17/19 oral liquid Previous Rx's Medication Instructions Recorded glecaprevir 100 mg-pibrentasvir 40 3 tab PO QDAY #270 tab 02/02/19 mg tablet Allergies Allergy/AdvReac Type Severity Reaction Status Date / Time No Known Drug Allergies Allergy Verified 02/02/19 10:00 Review of Systems All systems ED: reviewed and negative except as stated. Past Medical History - Past Medical History Attestation: Yes: The following information was validated with the patient. 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) Diabetes mellitus (Chronic) Venous stasis ulcer (Chronic) Diarrhea (Chronic) Leukocytosis (Chronic) Hypoglycemia (Chronic) Cachexia (Chronic) Weight loss (Chronic) Hypotension (Chronic) Foot ulcer (Chronic) Corneal opacity (Chronic) Onychomycosis (Chronic) Hepatitis C antibody test positive (Chronic) Astigmatism (Chronic) Hypermetropia (Chronic) Myopia (Chronic) Epiretinal membrane (Chronic) Tympanic membrane perforation (Chronic) Stiffness of right hand joint (Chronic) Presbyopia (Chronic) Osteomyelitis (Resolved) Pneumonia (Resolved) Septic arthritis (Resolved) Septic arthritis of ankle or foot (Resolved) Past Surgical History (Last Reviewed 02/02/19 @ 10:08 by Yamilex Donis RN) S/P cataract extraction (Acute) S/P cholecystectomy (Acute) S/P tonsillectomy (Acute) History of cardiac cath (Chronic) History of colonoscopy (Chronic ~02/2011) Medical history: Reports: other (Patient has a history of chronic renal failure and currently on dialysis, history of hepatitis, peripheral neuropathy,). Denies: CHF, CVA, DVT, hyperlipidemia, myocardial infarction, pulmonary embolus, TIA Surgical history ED: Reports: other (Cataract, tonsillectomy, cholecystectomy,) - Social History smoking status: Never smoker Alcohol use: Reports: None Drug use: Reports: none, marijuana (Daily in the past) Physical Exam Cachectic male no acute distress resting comfortably able to answer questions a ppropriately. Normocephalic atraumatic. Conjunctive are clear sclerae white and icteric no nasal discharge or congestion. Oropharynx pink moist. Heart is regular rate and rhythm no murmur appreciated. Lungs are basically clear to auscultation as well. He does have a fistula in place on his right arm. It does not appear erythematous or compromised. Abdomen is soft nontender nondistended. No pedal edema. However he does have chronic changes to bilateral legs. He is alert and cooperative Limitations: no limitations Course Vital Signs Temperature 98.4 F 03/17/19 15:11 Pulse Rate 95 H 03/17/19 15:11 Respiratory Rate 16 03/17/19 15:11 Blood Pressure 84/54 03/17/19 15:11 Pulse Oximetry (%) 96 03/17/19 15:11 Temperature 98.4 F 03/17/19 15:11 Pulse Rate 95 H 03/17/19 15:11 Respiratory Rate 16 03/17/19 15:11 Blood Pressure 84/54 03/17/19 15:11 Pulse Oximetry (%) 96 03/17/19 15:11 Medical Decision Making - Medical Records Medical records reviewed: Yes I reviewed the patient's medical records. Reviewed correspondence and chart summary - Lab Data Lab results reviewed: Yes I reviewed the patient's lab results. Result diagrams: 03/17/19 15:30 03/17/19 15:30 Lab Results 03/17/19 03/17/19 03/17/19 Range/Units 15:30 15:30 15:30 WBC 17.1 H (4.5-11.0) K/mcL RBC 3.75 L (4.50-5.90) M/mcL Hgb 11.3 L (13.5-16.5) g/dL Hct 35.3 L (41.0-55.0) % MCV 94.2 (80.0-100.0) fL MCH 30.2 (26.0-34.0) pg MCHC 32.1 (31.0-36.0) g/dL RDW 17.1 H (11.5-14.5) % Plt Count 92 L (140-440) K/mcL MPV 7.6 (7.4-10.4) fL Gran % 94.9 H (38.0-78.0) % Lymph % (Auto) 3.7 L (15.5-49.0) % [place] % (Auto) 1.3 (1.0-12.0) % Eos % (Auto) 0 (0.0-7.0) % Baso % (Auto) 0.1 (0.0-2.0) % Gran # 16.2 H (1.8-8.0) K/mcL Lymph # (Auto) 0.6 L (1.5-4.8) K/mcL [place] # (Auto) 0.2 (0.1-0.9) K/mcL Eos # (Auto) 0 (0.0-0.7) K/mcL Baso # (Auto) 0 (0.0-0.3) K/mcL Differential Comment VBG Lactic Acid (0.5-2.0) mmol/L Sodium 128 L (133-145) mmol/L Potassium 4.0 (3.3-5.1) mmol/L Chloride 87 L (96-108) mmol/L Carbon Dioxide 25 (22-30) mmol/L Anion Gap 16.0 (8-16) BUN 54 H (8-23) mg/dl Creatinine 3.8 H (0.7-1.2) mg/dl GFR Calculation 16 Glucose 70 (70-105) mg/dL Calcium 8.8 (8.6-10.4) mg/dl Total Bilirubin 0.9 (0.0-1.0) mg/dL AST 28 (0-37) U/l ALT 9 (0-40) U/l Alkaline Phosphatase 92 (39-117) U/L Total Protein 7.8 (5.9-8.4) gm/dL Albumin 2.7 L (3.2-5.2) gm/dL Globulin 5.1 H (2.2-3.7) gm/dL Albumin/Globulin Ratio 0.5 L (1.0-2.3) Procalcitonin 21.20 (<0.10) ng/mL 03/17/19 Range/Units 15:55 WBC (4.5-11.0) K/mcL RBC (4.50-5.90) M/mcL Hgb (13.5-16.5) g/dL Hct (41.0-55.0) % MCV (80.0-100.0) fL MCH (26.0-34.0) pg MCHC (31.0-36.0) g/dL RDW (11.5-14.5) % Plt Count (140-440) K/mcL MPV (7.4-10.4) fL Gran % (38.0-78.0) % Lymph % (Auto) (15.5-49.0) % [place] % (Auto) (1.0-12.0) % Eos % (Auto) (0.0-7.0) % Baso % (Auto) (0.0-2.0) % Gran # (1.8-8.0) K/mcL Lymph # (Auto) (1.5-4.8) K/mcL [place] # (Auto) (0.1-0.9) K/mcL Eos # (Auto) (0.0-0.7) K/mcL Baso # (Auto) (0.0-0.3) K/mcL Differential Comment VBG Lactic Acid 1.7 (0.5-2.0) mmol/L Sodium (133-145) mmol/L Potassium (3.3-5.1) mmol/L Chloride (96-108) mmol/L Carbon Dioxide (22-30) mmol/L Anion Gap (8-16) BUN (8-23) mg/dl Creatinine (0.7-1.2) mg/dl GFR Calculation Glucose (70-105) mg/dL Calcium (8.6-10.4) mg/dl Total Bilirubin (0.0-1.0) mg/dL AST (0-37) U/l ALT (0-40) U/l Alkaline Phosphatase (39-117) U/L Total Protein (5.9-8.4) gm/dL Albumin (3.2-5.2) gm/dL Globulin (2.2-3.7) gm/dL Albumin/Globulin Ratio (1.0-2.3) Procalcitonin (<0.10) ng/mL - Radiology Data Radiology results reviewed: Yes I reviewed the patient's radiology results. Chest x-ray shows right lower lobe infiltrate when compared with previous Disposition Pt seen by [facility]PERATOR/PA only: No Clinical Impression: ESRD (end stage renal disease) on dialysis Pneumonia Qualifiers: Pneumonia type: due to Pneumococcus Laterality: right Lung location: lower lobe of lung Qualified Code(s): J13 - Pneumonia due to Streptococcus pneumoniae Sepsis Qualifiers: Sepsis type: Pneumococcus Qualified Code(s): A40.3 - Sepsis due to Streptococcus pneumoniae Summary: Will order repeat labs for today. Start ceftriaxone 2 g per ID recommendations. Repeat blood cultures. Arrange for inpatient bed He was hungry and his blood sugars have been on the low side so we gave him a lunch tray. He continued to mentate normally Chest x-ray shows right lower lobe infiltrate suspect pneumococcal pneumonia given scenario. Laboratory corroborates sepsis with leukocytosis with greater than 10% bandemia and elevated procalcitonin. Lactic acid paradoxically normal I discussed the case with Dr. Escobar, our hospitalist, who agreed to admit the patient for further evaluation and care. His blood pressures were trending lower so IV fluids are started Disposition: Xfer As Inpt ([facility]) Condition: Critical Referrals: Erwin Fuentes MD [Primary Care Provider] - Narendra Chambers MD [Physician] -
[2019-03-17 16:46] LABS: ALT/SGPT 9 U/l (0-40); AST/SGOT 28 U/l (0-37); Albumin 2.7 gm/dL (3.2-5.2); Albumin/Globulin Ratio 0.5 (1.0-2.3); Alkaline Phosphatase 92 U/L (39-117); Bilirubin,Total 0.9 mg/dL (0.0-1.0); Blood Urea Nitrogen 54 mg/dl (8-23); Calcium 8.8 mg/dl (8.6-10.4); Carbon Dioxide 25 mmol/L (22-30); Chloride 87 mmol/L (96-108); Globulin 5.1 gm/dL (2.2-3.7); Glomerular Filtration Rate 16; Glucose 70 mg/dL (70-105); Sodium 128 mmol/L (133-145)
[2019-03-17 16:54] LABS: Basophils # (Auto) 0 K/mcL (0.0-0.3); Basophils % (Auto) 0.1 % (0.0-2.0); Eosinophils # (Auto) 0 K/mcL (0.0-0.7); Eosinophils % (Auto) 0 % (0.0-7.0); Granulocytes % (Auto) 94.9 % (38.0-78.0); Hematocrit 35.3 % (41.0-55.0); Hemoglobin 11.3 g/dL (13.5-16.5); Lymphocytes # (Auto) 0.6 K/mcL (1.5-4.8); Lymphocytes % (Auto) 3.7 % (15.5-49.0); Mean Cell Volume 94.2 fL (80.0-100.0); Mean Corpuscular HGB Conc 32.1 g/dL (31.0-36.0); Mean Platelet Volume 7.6 fL (7.4-10.4); Monocytes # (Auto) 0.2 K/mcL (0.1-0.9); Monocytes % (Auto) 1.3 % (1.0-12.0); Platelet Count 92 K/mcL (140-440); RBC 3.75 M/mcL (4.50-5.90); Red Cell Distribution Width 17.1 % (11.5-14.5); WBC 17.1 K/mcL (4.5-11.0)
[2019-03-17] MEDS ORDERED: 0.9 % SODIUM CHLORIDE 1,000 ML IV ONE (17:55)
--- NOTE | 2019-03-17 19:04 | XRay Report ---
CLINICAL INFORMATION: strep pneumo bacteremia in dialysis patient COMPARISON: 01/13/2019 FINDINGS: Heart size, and pulmonary vessels are unremarkable. Esophagus is mildly dilated and air-filled - mediastinum is otherwise normal. Large patchy infiltrates in both lower lobes and moderate right pleural effusion have worsened from a comparison x-ray over two months prior IMPRESSION: Large patchy bilateral lower lobe infiltrates and moderate right pleural effusion worsening since an x-ray over two months ago. Moderate esophageal dilatation which could indicate a distal stricture or dysmotility etc. Patient is at risk for aspiration - a likely etiology for bilateral infiltrates Suggest: Esophagram to evaluate epiglottis and vocal cord closure to determine aspiration risk and also to evaluate esophageal dysmotility and distal esophageal stricture. Interpreted and Authenticated by: Maycol Bennett 03/17/19
[2019-03-17] MEDS ORDERED: MAGNESIUM SULFATE 2 GM/50 ML BAG IV PRN (19:36)
[2019-03-17] MEDS ORDERED: ACETAMINOPHEN 325 MG TABLET PO PRN (19:36)
[2019-03-17] MEDS ORDERED: ONDANSETRON 4 MG/2 ML VIAL IV PRN (19:36)
[2019-03-17] MEDS ORDERED: IPRATROPIUM/ALBUTEROL 3 ML AMPUL.NEB NEB PRN (19:36)
[2019-03-17] MEDS ORDERED: ACETAMINOPHEN 1,000 MG/100 ML BOTTLE IV PRN (19:36)
--- NOTE | 2019-03-17 20:43 | Internal Med History&Physical ---
Medical - H&P: HPI Patient information: Note initiated : 03/17/19 at 8:37 pm Service Date, if different from initiated Date: [] Patient: Ewrin Gaxiola 63 y/o M admitted on 03/17/19 for postive blood culture follow up. Chief Complaint: [] Chief complaint: fever and weakness History of present illness: Mr. Gaxiola is a 63 year old Male with end-stage renal disease on hemodialysis managed by Dr. Chambers, who presents to the ER today the second time with 3 days' onset of weakness/fever and shaking chills. He was evaluated in the ER the day prior with above symptoms and was discharged however his blood cultures came back positive for Streptococcus pneumoniae. He was subsequently advised to return to ER Patient carries known history of hepatitis C and has been managed by infectious disease specialist Dr. Cox Initial workup in the ER was consistent with severe sepsis with white count 17.1 pro-calcitonin Over 20 Bandemia and Fever. Chest imaging revealed pneumonia. Significant presented history patient carries a history of recurrent aspiration pneumonia. Patient was started on antibiotic coverage on Rocephin as per ID specialist. Subsequently hospitalist service was consulted At the time of evaluation patient is fairly weak fatigued but was able to answer most questions. He denies productive sputum but endorses to fevers and chills and sweats. Denies headache photophobia or joint pain. He further denies new onset skin rash, dysuria. Patient endorses to mild dizziness and intermittent chronic diarrhea. Case was discussed with Dr. Chambers. 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) Diabetes mellitus (Chronic) Venous stasis ulcer (Chronic) Diarrhea (Chronic) Leukocytosis (Chronic) Hypoglycemia (Chronic) Cachexia (Chronic) Weight loss (Chronic) Hypotension (Chronic) Foot ulcer (Chronic) Corneal opacity (Chronic) Onychomycosis (Chronic) Hepatitis C antibody test positive (Chronic) Astigmatism (Chronic) Hypermetropia (Chronic) Myopia (Chronic) Epiretinal membrane (Chronic) Tympanic membrane perforation (Chronic) Stiffness of right hand joint (Chronic) Presbyopia (Chronic) Osteomyelitis (Resolved) Pneumonia (Resolved) Septic arthritis (Resolved) Septic arthritis of ankle or foot (Resolved) Surgical history: Past Surgical History (Last Updated 01/09/19 @ 13:06 by Colt Alves DO) S/P cataract extraction (Acute) S/P cholecystectomy (Acute) S/P tonsillectomy (Acute) History of cardiac cath (Chronic) History of colonoscopy (Chronic ~02/2011) Family History (Last Updated 12/29/18 @ 13:18 by Angelia Douglas) Other No pertinent family history Social history: Lives with daughter at [facility] [place] [facility] - H&P: Meds Home Medications Medication Instructions Recorded Confirmed Type Loperamide HCl [Loperamide] 4 mg PO PRN PRN MDD 16 mg 11/27/18 03/17/19 History Megestrol Acetate [Megace] 40 mg PO DAILY 11/27/18 03/17/19 History calcium acetate 667 mg capsule 667 mg PO TID cap 12/29/18 03/17/19 History sevelamer carbonate 800 mg tablet 1,600 mg PO TID tab 12/29/18 03/17/19 History food supplement, lactose-reduced 1 each PO TID ml 02/02/19 03/17/19 History oral liquid glecaprevir 100 mg-pibrentasvir 40 3 tab PO QDAY #270 tab 02/02/19 03/17/19 Rx mg tablet Allergies Allergy/AdvReac Type Severity Reaction Status Date / Time No Known Drug Allergies Allergy Verified 02/02/19 10:00 Medical - H&P: Exam - Constitutional Vitals: Temp Pulse Resp BP Pulse Ox 101.0 F H 104 H 24 H 110/70 99 03/17/19 19:30 03/17/19 19:30 03/17/19 19:30 03/17/19 19:30 03/17/19 19:30 General appearance: thin Exam: thin and frail individual in no apparent distress Head normocephalic IV movements symmetrical Oral cavity dry Temporal wasting No lymphadenopathy S1 and S2 regular rhythm, grade 1 systolic murmur Diminished breath sounds bases with late inspiratory crackles Intercostal retraction Abdomen soft nontender, scaphoid Lower extremity no cyanosis clubbing with generalized skin xerosis No lymphedema Skin otherwise no suspicious lesion Psych alert cooperative Neuro nonfocal Medical - H&P: Reslt - Labs CBC & Chem 7: 03/17/19 15:30 03/17/19 15:30 Labs: Short CBC 03/17/19 Range/Units 15:30 WBC 17.1 H (4.5-11.0) K/mcL Hgb 11.3 L (13.5-16.5) g/dL Hct 35.3 L (41.0-55.0) % Plt Count 92 L (140-440) K/mcL BMP 03/17/19 15:30 Sodium 128 L Potassium 4.0 Chloride 87 L Carbon Dioxide 25 BUN 54 H Creatinine 3.8 H Glucose 70 Calcium 8.8 Liver Function 03/17/19 Range/Units 15:30 Total Bilirubin 0.9 (0.0-1.0) mg/dL AST 28 (0-37) U/l ALT 9 (0-40) U/l Alkaline Phosphatase 92 (39-117) U/L Albumin 2.7 L (3.2-5.2) gm/dL Medical - H&P: A/P (1) Bacteremia due to Streptococcus pneumoniae Current visit: Yes Status: Acute * Streptococcus pneumonia bacteremia-continue surveillance cultures, ID consult, Rocephin as per ID, source evaluation. Echocardiogram. * Severe sepsis secondary to above with end organ dysfunction-continue management per guidelines. Pressors if indicated. Pancultures antibiotics * Pneumonia likely aspiration versus nosocomial, nephrology recommendations additional coverage for anaerobes. * ESRD on hemodialysis managed per nephrology. * History of hepatitis C-continue treatment as per infectious disease specialist * Severe weight loss/protein calorie malnutrition and deconditioning-nutrition support/protein calorie supplements/aggressive physical therapy * Full code * Prophylaxis heparin Plan * Inpatient admission in light of severe sepsis and bacteremia * Aggressive source evaluation/sepsis management per guidelines * Pre-existing medical condition management as above * Nephrology and ID consult
[2019-03-17] MEDS ORDERED: LACTOSE REDUCED FOOD PO SCH (21:00)
[2019-03-17] MEDS: DOCUSATE SODIUM 100 MG CAPSULE PO SCH (21:14)
[2019-03-17] MEDS: SENNOSIDES/DOCUSATE SODIUM 1 TAB TABLET PO SCH (21:14)
[2019-03-17] MEDS: 0.9 % SODIUM CHLORIDE 10 ML SYRINGE IV SCH (21:14)
[2019-03-17] MEDS: HEPARIN 5,000 UNIT/ML VIAL SQ SCH (21:31)
[2019-03-17] MEDS: metroNIDAZOLE 500 MG/100 ML BAG IV SCH (21:53)
[2019-03-18 05:43] LABS: ALT/SGPT 7 U/l (0-40); AST/SGOT 16 U/l (0-37); Albumin 1.9 gm/dL (3.2-5.2); Albumin/Globulin Ratio 0.5 (1.0-2.3); Alkaline Phosphatase 92 U/L (39-117); Bilirubin,Direct 0.3 mg/dL (0.0-0.3); Bilirubin,Total 0.5 mg/dL (0.0-1.0); Blood Urea Nitrogen 65 mg/dl (8-23); Calcium 8.2 mg/dl (8.6-10.4); Carbon Dioxide 25 mmol/L (22-30); Chloride 89 mmol/L (96-108); Gamma Glutamyl Transpeptidase 16 U/L (8-61); Globulin 4.2 gm/dL (2.2-3.7); Glomerular Filtration Rate 13; Glucose 69 mg/dL (70-105); Lactate Dehydrogenase 124 U/L (94-250); Phosphorous 5.6 mg/dL (2.7-4.5); Potassium 3.9 mmol/L (3.3-5.1); Sodium 127 mmol/L (133-145); Triglycerides 80 mg/dl (<150); Uric Acid 3.6 mg/dL (2.5-8.0)
[2019-03-18] MEDS: metroNIDAZOLE 500 MG/100 ML BAG IV SCH ×3 (05:56→21:15)
[2019-03-18] MEDS: 0.9 % SODIUM CHLORIDE 10 ML SYRINGE IV SCH ×4 (05:57→21:16)
[2019-03-18 06:35] LABS: Hematocrit 29.9 % (41.0-55.0); Hemoglobin 9.7 g/dL (13.5-16.5); Mean Cell Volume 94.1 fL (80.0-100.0); Mean Corpuscular HGB Conc 32.5 g/dL (31.0-36.0); Mean Platelet Volume 7.1 fL (7.4-10.4); Platelet Count 81 K/mcL (140-440); RBC 3.18 M/mcL (4.50-5.90); Red Cell Distribution Width 16.9 % (11.5-14.5)
[2019-03-18 06:37] LABS: Anisocytosis 1+ (NONE SEEN); Band Neutrophils % 5 % (0-10); Eosinophils % (Manual) 1 % (0-7); Lymphocytes % 4 % (15-49); Monocytes % (Manual) 3 % (1-12); Nucleated Red Blood Cells 1 % (0-0); Platelet Estimate DECREASED (NORMAL); RBC Morphology ABNORM (NORMAL); Segmented Neutrophils % 87 % (38-78)
[2019-03-18] MEDS: MULTIVIT,THER IRON,CA,FA & MIN 1 TABLET PO SCH (09:00)
[2019-03-18] MEDS: SEVELAMER 800 MG TABLET PO SCH ×3 (09:00→17:24)
[2019-03-18] MEDS ORDERED: MEGESTROL ACETATE 40 MG TABLET PO SCH (09:00)
[2019-03-18] MEDS: CALCIUM ACETATE 667 MG CAPSULE PO SCH ×3 (09:00→17:24)
[2019-03-18] MEDS: HEPARIN 5,000 UNIT/ML VIAL SQ SCH ×2 (09:00→21:16)
[2019-03-18] MEDS: LOPERAMIDE 2 MG CAPSULE PO PRN ×2 (09:00→21:16)
[2019-03-18] MEDS: DOCUSATE SODIUM 100 MG CAPSULE PO SCH ×2 (09:01→21:16)
[2019-03-18] MEDS: cefTRIAXone 2 GM in DEXTROSE 5% IN WATER 50 ML IV SCH (10:00)
[2019-03-18] MEDS: MEGESTROL ACETATE 400 MG/10 ML ORAL.SUSP PO SCH ×2 (10:13→11:38)
[2019-03-18] MEDS: GLECAPREVIR PO SCH ×2 (10:35→12:34)
[2019-03-18] MEDS: PIBRENTASVIR PO SCH ×2 (10:35→12:34)
--- NOTE | 2019-03-18 12:41 | Internal Med Progress Note ---
Medical - PN: Subj Patient information: Note initiated : 03/18/19 at 12:37 pm Service Date, if different from initiated Date: [] Patient: Erwin Gaxiola 63 y/o M admitted on 03/17/19 for postive blood culture follow up. Chief Complaint: [] Interval history: Mr. Gaxiola is a 63 year old Male with end-stage renal disease on hemodialysis managed by Dr. Chambers, who presents to the ER today the second time with 3 days' onset of weakness/fever and shaking chills. He was evaluated in the ER the day prior with above symptoms and was discharged however his blood cultures came back positive for Streptococcus pneumoniae. He was subsequently advised to return to ER Patient carries known history of hepatitis C and has been managed by infectious disease specialist Dr. Cox Initial workup in the ER was consistent with severe sepsis with white count 17.1 pro-calcitonin Over 20 Bandemia and Fever. Chest imaging revealed pneumonia. Significant presented history patient carries a history of recurrent aspiration pneumonia. Patient was started on antibiotic coverage on Rocephin as per ID specialist. Subsequently hospitalist service was consulted At the time of evaluation patient is fairly weak fatigued but was able to answer most questions. He denies productive sputum but endorses to fevers and chills and sweats. Denies headache photophobia or joint pain. He further denies new onset skin rash, dysuria. Patient endorses to mild dizziness and intermittent chronic diarrhea. Case was discussed with Dr. Chambers. 03/18-patient doing remarkably better. Fever defervesced. White count down from 17.6-14,000. Surveillance cultures pending. GPC on repeat cultures 03/17, echocardiogram pending to rule out IgE. ESRD management ongoing per nephrology. Antibiotic coverage extended Flagyl for consideration of aspiration pneumonia. Pleural effusion on imaging. Rule out parapneumonic infusion/empyema, thoracentesis ordered - Constitutional Vitals: Vital Signs Temp Pulse Resp BP Pulse Ox 97.8 F 82 20 99/72 100 03/18/19 11:10 03/18/19 08:00 03/18/19 11:10 03/18/19 11:10 03/18/19 11:10 Period Temp Pulse Resp BP Sys/William Pulse Ox Last 24 Hr 97.3 F-101.0 F 78-104 16-29 84-116/54-72 94-100 Intake and Output 03/17/19 03/18/19 03/18/19 21:59 05:59 13:59 Intake Total 450 100 330 Balance 450 100 330 Weight 105 lb 6.4 oz Intake & Output: Intake & Output 03/17/19 03/18/19 03/18/19 21:59 05:59 13:59 Intake Total 450 100 330 Balance 450 100 330 Weight 105 lb 6.4 oz Intake: IV 450 100 150 Sodium Chloride 0.9% 1,000 ml @ 400 Wide Open IV BOLUS ONE Rx#: [id number] Rocephin 2 gm In Dextrose 5% in 50 50 Water 50 ml @ 100 mls/hr IV Q24H DIOGENES Rx#:[id number] Oral 0 180 Other: Meal Breakfast Percent of Meal Consumed 100% Stool Size Moderate Stool Color Brown Yellow Green Stool Consistency Watery # Bowel Movements 1 # of times incontinent of 0 Bowels General appearance: no acute distress Exam: Absent breath sounds bases No anxiety No telemetry events Cachectic Medical - PN: Obj Da - Labs CBC & Chem 7: 03/18/19 03:55 03/18/19 03:55 Labs: Abnormal Lab Results 03/18/19 03/18/19 03/17/19 03:55 03:55 15:30 WBC 14.0 H RBC 3.18 L Hgb 9.7 L Hct 29.9 L RDW 16.9 H Plt Count 81 L MPV 7.1 L Gran % Lymph % (Auto) Gran # Lymph # (Auto) Seg Neutrophils % 87 H Lymphocytes % 4 L Nucleated RBCs 1 H Platelet Estimate Decreased A RBC Morphology Abnorm A Anisocytosis 1+ A Sodium 127 L 128 L Chloride 89 L 87 L BUN 65 H 54 H Creatinine 4.4 H 3.8 H Glucose 69 L Calcium 8.2 L Phosphorus 5.6 H Albumin 1.9 L 2.7 L Globulin 4.2 H 5.1 H Albumin/Globulin Ratio 0.5 L 0.5 L 03/17/19 15:30 WBC 17.1 H RBC 3.75 L Hgb 11.3 L Hct 35.3 L RDW 17.1 H Plt Count 92 L MPV Gran % 94.9 H Lymph % (Auto) 3.7 L Gran # 16.2 H Lymph # (Auto) 0.6 L Seg Neutrophils % Lymphocytes % Nucleated RBCs Platelet Estimate RBC Morphology Anisocytosis Sodium Chloride BUN Creatinine Glucose Calcium Phosphorus Albumin Globulin Albumin/Globulin Ratio Meds: Medications Acetaminophen (Tylenol) 650 mg PO Q4-6HP PRN PRN Reason: PAIN/FEVER > 101 Albuterol/Ipratropium (Duoneb) 3 ml NEB Q4HP PRN PRN Reason: Shortness Of Breath Calcium Acetate (Phoslo) 667 mg PO TIDCC [facility] Last Admin: 03/18/19 12:24 Dose: 667 mg Documented by: Docusate Sodium (Colace) 100 mg PO BID [facility] Last Admin: 03/18/19 09:01 Dose: 100 mg Documented by: Heparin Sodium (Porcine) (Heparin) 5,000 unit SQ Q12 [facility] Last Admin: 03/18/19 09:00 Dose: 5,000 unit Documented by: Ceftriaxone Sodium 2 gm/ (Dextrose) 50 mls @ 100 mls/hr IV Q24H [facility]; Protocol Last Infusion: 03/18/19 10:35 Dose: Infused Documented by: Magnesium Sulfate (Magnesium Sulfate) 2 gm in 50 mls @ 50 mls/hr IV UD PRN PRN Reason: MG = or < 1.7 Acetaminophen (Ofirmev) 1,000 mg in 100 mls @ 200 mls/hr IV Q6HP PRN PRN Reason: PAIN/FEVER > 101 Metronidazole (Flagyl) 500 mg in 100 mls @ 100 mls/hr IV Q8H [facility]; Protocol Last Infusion: 03/18/19 07:00 Dose: Infused Documented by: Iron Carb/Multivit/Grease Man/Folic Acid (Multivitamin W/Minerals) 1 tab PO DAILY [facility] Last Admin: 03/18/19 09:00 Dose: 1 tab Documented by: Loperamide HCl (Imodium) 2 mg PO UD PRN PRN Reason: Diarrhea Last Admin: 03/18/19 09:00 Dose: 2 mg Documented by: Megestrol Acetate (Megace) 40 mg PO DAILY [facility] Last Admin: 03/18/19 11:38 Dose: 40 mg Documented by: Ondansetron HCl (Zofran) 4 mg IV Q4-6HP PRN PRN Reason: Nausea And Vomiting Glecaprevir/Pibrentasvir [ Mavyret] 100-40 Mg Tab 3 dose PO QDAY [facility] Last Admin: 03/18/19 12:34 Dose: 3 dose Documented by: Senna/Docusate Sodium (Senna Plus Tablet) 1 tab PO HS [facility] Last Admin: 03/17/19 21:14 Dose: 1 tab Documented by: Sevelamer Carbonate (Renvela) 1,600 mg PO TIDCC [facility] Last Admin: 03/18/19 12:24 Dose: 1,600 mg Documented by: Sodium Chloride (Saline Flush) 10 ml IV Q8 [facility] Last Admin: 03/18/19 06:59 Dose: 10 ml Documented by: Medical - PN: A/P - Time Spent With Patient Total time spent is greater than 50% in coordination of care (as documented) at patient's floor/unit and/or counseling patient: 25 - 35 minutes (1) Bacteremia due to Streptococcus pneumoniae Status: Acute Assessment and plan: * Streptococcus pneumonia bacteremia-continue surveillance cultures, ID consult, Rocephin as per ID, source evaluation. Echocardiogram. * Severe sepsis secondary to above with end organ dysfunction -clinically improved with management per guidelines. * Bilateral Pneumonia likely aspiration versus nosocomial, continue Rocephin/Flagyl for anaerobic coverage. * Pleural effusion/suspect empyema-thoracentesis/studies ordered * ESRD on hemodialysis managed per nephrology. * History of hepatitis C-continue treatment as per infectious disease specialist * Severe weight loss/protein calorie malnutrition and deconditioning-nutrition support/protein calorie supplements/aggressive physical therapy * Full code * Prophylaxis heparin Plan * Thoracentesis/studies * Surveillance culture/echocardiogram to rule out IV * Broad antibiotic coverage * PT OT nutrition support * Pre-existing medical condition management as above * Nephrology and ID consult Current Visit: Yes
[2019-03-18] MEDS: SENNOSIDES/DOCUSATE SODIUM 1 TAB TABLET PO SCH (21:16)
[2019-03-19] MEDS: 0.9 % SODIUM CHLORIDE 10 ML SYRINGE IV SCH ×3 (05:29→23:54)
[2019-03-19] MEDS: metroNIDAZOLE 500 MG/100 ML BAG IV SCH ×3 (05:29→22:44)
[2019-03-19 05:56] LABS: ALT/SGPT 7 U/l (0-40); AST/SGOT 10 U/l (0-37); Albumin/Globulin Ratio 0.5 (1.0-2.3); Alkaline Phosphatase 159 U/L (39-117); Bilirubin,Direct 0.2 mg/dL (0.0-0.3); Bilirubin,Total 0.4 mg/dL (0.0-1.0); Blood Urea Nitrogen 85 mg/dl (8-23); Calcium 8.2 mg/dl (8.6-10.4); Carbon Dioxide 24 mmol/L (22-30); Chloride 88 mmol/L (96-108); Gamma Glutamyl Transpeptidase 28 U/L (8-61); Globulin 4.2 gm/dL (2.2-3.7); Glomerular Filtration Rate 10; Glucose 163 mg/dL (70-105); Lactate Dehydrogenase 196 U/L (94-250); Magnesium 2.2 mg/dL (1.6-2.5); Phosphorous 5.7 mg/dL (2.7-4.5); Potassium 3.8 mmol/L (3.3-5.1); Sodium 127 mmol/L (133-145); Triglycerides 62 mg/dl (<150)
[2019-03-19 06:09] LABS: Hematocrit 29.9 % (41.0-55.0); Hemoglobin 9.8 g/dL (13.5-16.5); Mean Cell Volume 93.3 fL (80.0-100.0); Mean Corpuscular HGB Conc 32.7 g/dL (31.0-36.0); Mean Platelet Volume 8.9 fL (7.4-10.4); Platelet Count 75 K/mcL (140-440); Red Cell Distribution Width 16.6 % (11.5-14.5); WBC 8.2 K/mcL (4.5-11.0)
[2019-03-19 06:48] LABS: Anisocytosis 1+ (NONE SEEN); Band Neutrophils % 1 % (0-10); Lymphocytes % 8 % (15-49); Monocytes % (Manual) 3 % (1-12); Platelet Estimate DECREASED (NORMAL); RBC Morphology ABNORM (NORMAL); Segmented Neutrophils % 88 % (38-78)
--- NOTE | 2019-03-19 08:22 | Internal Med Progress Note ---
Medical - PN: Subj Patient information: Note initiated : 03/19/19 at 8:19 am Service Date, if different from initiated Date: [] Patient: Erwin Gaxiola a 63 y/o M admitted on 03/17/19 for postive blood culture follow up. Chief Complaint: [] Interval history: Mr. Gaxiola is a 63 year old Male with end-stage renal disease on hemodialysis managed by Dr. Chambers, who presents to the ER today the second time with 3 days' onset of weakness/fever and shaking chills. He was evaluated in the ER the day prior with above symptoms and was discharged however his blood cultures came back positive for Streptococcus pneumoniae. He was subsequently advised to return to ER Patient carries known history of hepatitis C and has been managed by infectious disease specialist Dr. Cox Initial workup in the ER was consistent with severe sepsis with white count 17.1 pro-calcitonin Over 20 Bandemia and Fever. Chest imaging revealed pneumonia. Significant presented history patient carries a history of recurrent aspiration pneumonia. Patient was started on antibiotic coverage on Rocephin as per ID specialist. Subsequently hospitalist service was consulted At the time of evaluation patient is fairly weak fatigued but was able to answer most questions. He denies productive sputum but endorses to fevers and chills and sweats. Denies headache photophobia or joint pain. He further denies new onset skin rash, dysuria. Patient endorses to mild dizziness and intermittent chronic diarrhea. Case was discussed with Dr. Chambers. 03/18-patient doing remarkably better. Fever defervesced. White count down from 17.6-14,000. Surveillance cultures pending. [facility] on repeat cultures 03/17, echocardiogram pending to rule out IgE. ESRD management ongoing per nephrology. Antibiotic coverage extended Flagyl for consideration of aspiration pneumonia. Pleural effusion on imaging. Rule out parapneumonic infusion/empyema, thoracentesis ordered 03/19- patient doing well. White count down from 14.78. Thoracentesis pending. No overnight fever or chills. And bleeding and tolerating diet. No concerns per staff. No telemetry events. Surveillance culture so far negative and last positive culture 03/17. Systolics stable around 110. Echocardiogram results pending. - Constitutional Vitals: Vital Signs Temp Pulse Resp BP Pulse Ox 97.8 F 78 18 109/74 98 03/19/19 07:22 03/19/19 04:06 03/19/19 07:22 03/19/19 07:22 03/19/19 07:22 Period Temp Pulse Resp BP Sys/William Pulse Ox Last 24 Hr 97.6 F-99.4 F 75-80 16-21 99-114/68-82 94-100 Intake and Output 03/18/19 03/19/19 03/19/19 21:59 05:59 13:59 Intake Total 200 340 100 Output Total 150 Balance 50 340 100 Weight 105 lb 6.4 oz Intake & Output: Intake & Output 03/18/19 03/19/19 03/19/19 21:59 05:59 13:59 Intake Total 200 340 100 Output Total 150 Balance 50 340 100 Weight 105 lb 6.4 oz Intake: IV 100 100 100 Oral 100 240 Output: Stool 150 Other: Stool Size Moderate Small Stool Color Brown Brown Stool Consistency Liquid Liquid Loose # Bowel Movements 1 # of times incontinent of 1 Bowels General appearance: no acute distress Exam: Frail and thin No overnight telemetry events Abdomen soft Diminished breath sounds bilaterally with absent breath sounds bases No anxiety Medical - PN: Obj Da - Labs CBC & Chem 7: 03/19/19 03:10 03/19/19 03:10 Labs: Abnormal Lab Results 03/19/19 03/19/19 03/18/19 03:10 03:10 03:55 WBC RBC 3.20 L Hgb 9.8 L Hct 29.9 L RDW 16.6 H Plt Count 75 L MPV Gran % Lymph % (Auto) Gran # Lymph # (Auto) Seg Neutrophils % 88 H Lymphocytes % 8 L Nucleated RBCs Platelet Estimate Decreased A RBC Morphology Abnorm A Anisocytosis 1+ A Sodium 127 L 127 L Chloride 88 L 89 L BUN 85 H 65 H Creatinine 5.5 H* 4.4 H Glucose 163 H 69 L Calcium 8.2 L 8.2 L Phosphorus 5.7 H 5.6 H Alkaline Phosphatase 159 H Albumin 2.0 L 1.9 L Globulin 4.2 H 4.2 H Albumin/Globulin Ratio 0.5 L 0.5 L 03/18/19 03/17/19 03/17/19 03:55 15:30 15:30 WBC 14.0 H 17.1 H RBC 3.18 L 3.75 L Hgb 9.7 L 11.3 L Hct 29.9 L 35.3 L RDW 16.9 H 17.1 H Plt Count 81 L 92 L MPV 7.1 L Gran % 94.9 H Lymph % (Auto) 3.7 L Gran # 16.2 H Lymph # (Auto) 0.6 L Seg Neutrophils % 87 H Lymphocytes % 4 L Nucleated RBCs 1 H Platelet Estimate Decreased A RBC Morphology Abnorm A Anisocytosis 1+ A Sodium 128 L Chloride 87 L BUN 54 H Creatinine 3.8 H Glucose Calcium Phosphorus Alkaline Phosphatase Albumin 2.7 L Globulin 5.1 H Albumin/Globulin Ratio 0.5 L Meds: Medications Acetaminophen (Tylenol) 650 mg PO Q4-6HP PRN PRN Reason: PAIN/FEVER > 101 Albuterol/Ipratropium (Duoneb) 3 ml NEB Q4HP PRN PRN Reason: Shortness Of Breath Calcium Acetate (Phoslo) 667 mg PO TIDCC [facility] Last Admin: 03/18/19 17:24 Dose: 667 mg Documented by: Docusate Sodium (Colace) 100 mg PO BID [facility] Last Admin: 03/18/19 21:16 Dose: Not Given Documented by: Heparin Sodium (Porcine) (Heparin) 5,000 unit SQ Q12 [facility] Last Admin: 03/18/19 21:16 Dose: 5,000 unit Documented by: Ceftriaxone Sodium 2 gm/ (Dextrose) 50 mls @ 100 mls/hr IV Q24H [facility]; Protocol Last Infusion: 03/18/19 10:35 Dose: Infused Documented by: Magnesium Sulfate (Magnesium Sulfate) 2 gm in 50 mls @ 50 mls/hr IV UD PRN PRN Reason: MG = or < 1.7 Acetaminophen (Ofirmev) 1,000 mg in 100 mls @ 200 mls/hr IV Q6HP PRN PRN Reason: PAIN/FEVER > 101 Metronidazole (Flagyl) 500 mg in 100 mls @ 100 mls/hr IV Q8H [facility]; Protocol Last Infusion: 03/19/19 08:06 Dose: Infused Documented by: Iron Carb/Multivit/[employer]ting [employer]/Folic Acid (Multivitamin W/Minerals) 1 tab PO DAILY [facility] Last Admin: 03/18/19 09:00 Dose: 1 tab Documented by: Loperamide HCl (Imodium) 2 mg PO UD PRN PRN Reason: Diarrhea Last Admin: 03/18/19 21:16 Dose: 2 mg Documented by: Megestrol Acetate (Megace) 40 mg PO DAILY [facility] Last Admin: 03/18/19 11:38 Dose: 40 mg Documented by: Ondansetron HCl (Zofran) 4 mg IV Q4-6HP PRN PRN Reason: Nausea And Vomiting Glecaprevir/Pibrentasvir [ Mavyret] 100-40 Mg Tab 3 dose PO QDAY [facility] Last Admin: 03/18/19 12:34 Dose: 3 dose Documented by: Senna/Docusate Sodium (Senna Plus Tablet) 1 tab PO HS [facility] Last Admin: 03/18/19 21:16 Dose: Not Given Documented by: Sevelamer Carbonate (Renvela) 1,600 mg PO TIDCC [facility] Last Admin: 03/18/19 17:24 Dose: 1,600 mg Documented by: Sodium Chloride (Saline Flush) 10 ml IV Q8 [facility] Last Admin: 03/19/19 05:29 Dose: 10 ml Documented by: Medical - PN: A/P - Time Spent With Patient Total time spent is greater than 50% in coordination of care (as documented) at patient's floor/unit and/or counseling patient: 25 - 35 minutes (1) Bacteremia due to Streptococcus pneumoniae Status: Acute Assessment and plan: * Streptococcus pneumonia bacteremia-continue surveillance cultures, last positive blood culture 03/17 [facility]. Rocephin as per ID, source evaluation. Echocardiogram results awaited to rule out vegetation. * Severe sepsis secondary to above with end organ dysfunction -clinically improved with management per guidelines. * Bilateral Pneumonia likely aspiration versus nosocomial, clinical improvement noted on antibiotic coverage including Rocephin/Flagyl * Pleural effusion/suspect empyema-thoracentesis/studies ordered * ESRD on hemodialysis managed per nephrology. * History of hepatitis C-continue treatment as per infectious disease specialist * Severe weight loss/protein calorie malnutrition and deconditioning-nutrition support/protein calorie supplements/aggressive physical therapy * Full code * Prophylaxis heparin Plan * Await Thoracentesis/studies/echocardiogram to rule out infective endocarditis * Continue Surveillance culture * Broad antibiotic coverage * PT OT nutrition support * Pre-existing medical condition management as above * Nephrology and ID consult Current Visit: Yes
[2019-03-19] MEDS: GLECAPREVIR PO SCH (08:34)
[2019-03-19] MEDS: SEVELAMER 800 MG TABLET PO SCH ×3 (08:34→19:59)
[2019-03-19] MEDS: MULTIVIT,THER IRON,CA,FA & MIN 1 TABLET PO SCH (08:34)
[2019-03-19] MEDS: CALCIUM ACETATE 667 MG CAPSULE PO SCH ×3 (08:34→19:59)
[2019-03-19] MEDS: PIBRENTASVIR PO SCH (08:34)
[2019-03-19] MEDS: MEGESTROL ACETATE 400 MG/10 ML ORAL.SUSP PO SCH (08:35)
[2019-03-19] MEDS: cefTRIAXone 2 GM in DEXTROSE 5% IN WATER 50 ML IV SCH (08:36)
[2019-03-19] MEDS: DOCUSATE SODIUM 100 MG CAPSULE PO SCH ×3 (08:36→20:04)
[2019-03-19] MEDS: HEPARIN 5,000 UNIT/ML VIAL SQ SCH (08:43)
[2019-03-19] MEDS: LOPERAMIDE 2 MG CAPSULE PO PRN (11:28)
[2019-03-19 12:48] LABS: Appearance,Pleural Fluid CLOUDY; Color,Pleural Fluid ORANGE; Nucleated Cells,Pleural Fld 9704 /cumm; RBC,Pleural Fluid < 50000 /cumm
[2019-03-19 13:14] LABS: pH,Body Fluid 7.52
[2019-03-19 13:22] LABS: Glucose,Pleural Fluid 135 mg/dL
[2019-03-19 13:42] LABS: Cholesterol,Body Fluid 38 mg/dL
[2019-03-19 14:07] LABS: Lymphocytes,Pleural Fluid 3 %; Macrophages,Pleural Fluid 2 %; Neutrophils,Pleural Fluid 95 %
--- NOTE | 2019-03-19 14:43 | Ultrasound Report ---
CLINICAL INFORMATION: Empyema and pneumonia TECHNIQUE: The procedure and risks were explained and the patient consented after patient identification. Using ultrasound guidance a multiloculated collection of fluid was seen in the pleural space posteriorly and laterally in the right lower thorax. The overlying skin was prepped with ChloraPrep and then anesthetized with 1% lidocaine. With ultrasound guidance a Yueh needle was inserted into one of the larger pockets of fluid. 60 cc of cloudy blood-tinged fluid was removed and sent to laboratory for analysis. Due to the multiple septations, most of the fluid could be drained. IMPRESSION: Successful diagnostic thoracentesis. If the culture results return clerk to be positive, the septations can be lysed with TPA, to facilitate evacuation of the fluid. Interpreted and Authenticated by: Surendra Iyer 03/19/19
--- NOTE | 2019-03-19 14:44 | XRay Report ---
HISTORY: Post right-sided thoracentesis FINDINGS: There is no pneumothorax following the preceding right-sided thoracentesis. There still a moderate amount of fluid in the right lower thorax with some compressive atelectasis of the right lower lobe. A streaky infiltrate is seen in the left lower lobe. The upper lung hansen are clear. The heart size is normal. Comparison with the prior exam from 03/17/19 shows the consolidation in the right lung base has become worse and the infiltrate in the left lower lobe is also slightly worse. IMPRESSION: No complication following right-sided thoracentesis Interpreted and Authenticated by: Surendra Iyer 03/19/19
[2019-03-19] MEDS: SENNOSIDES/DOCUSATE SODIUM 1 TAB TABLET PO SCH ×2 (19:59→20:04)
[2019-03-20] MEDS: metroNIDAZOLE 500 MG/100 ML BAG IV SCH ×3 (05:48→21:23)
[2019-03-20] MEDS: 0.9 % SODIUM CHLORIDE 10 ML SYRINGE IV SCH ×3 (05:48→21:23)
[2019-03-20 07:34] LABS: ALT/SGPT 6 U/l (0-40); AST/SGOT 12 U/l (0-37); Albumin 2.1 gm/dL (3.2-5.2); Albumin/Globulin Ratio 0.5 (1.0-2.3); Alkaline Phosphatase 99 U/L (39-117); Bilirubin,Direct 0.3 mg/dL (0.0-0.3); Bilirubin,Total 0.5 mg/dL (0.0-1.0); Blood Urea Nitrogen 45 mg/dl (8-23); Calcium 8.4 mg/dl (8.6-10.4); Carbon Dioxide 28 mmol/L (22-30); Chloride 95 mmol/L (96-108); Gamma Glutamyl Transpeptidase 24 U/L (8-61); Globulin 4.4 gm/dL (2.2-3.7); Glomerular Filtration Rate 19; Glucose 151 mg/dL (70-105); Lactate Dehydrogenase 136 U/L (94-250); Magnesium 2.1 mg/dL (1.6-2.5); Potassium 3.5 mmol/L (3.3-5.1); Sodium 135 mmol/L (133-145); Triglycerides 91 mg/dl (<150); Uric Acid 2.7 mg/dL (2.5-8.0)
[2019-03-20 07:58] LABS: Anisocytosis 1+ (NONE SEEN); Basophils % (Manual) 1 % (0-2); Lymphocytes % 11 % (15-49); Monocytes % (Manual) 4 % (1-12); Nucleated Red Blood Cells 1 % (0-0); Platelet Estimate DECREASED (NORMAL); RBC Morphology ABNORM (NORMAL); Reactive Lymphocytes 1 % (0-2); Segmented Neutrophils % 83 % (38-78)
[2019-03-20] MEDS: SEVELAMER 800 MG TABLET PO SCH ×3 (08:14→17:10)
[2019-03-20] MEDS: CALCIUM ACETATE 667 MG CAPSULE PO SCH ×3 (08:14→17:10)
[2019-03-20] MEDS: PIBRENTASVIR PO SCH (08:15)
[2019-03-20] MEDS: MEGESTROL ACETATE 400 MG/10 ML ORAL.SUSP PO SCH (08:15)
[2019-03-20] MEDS: MULTIVIT,THER IRON,CA,FA & MIN 1 TABLET PO SCH (08:15)
[2019-03-20] MEDS: DOCUSATE SODIUM 100 MG CAPSULE PO SCH ×2 (08:15→21:23)
[2019-03-20] MEDS: GLECAPREVIR PO SCH (08:15)
[2019-03-20] MEDS: cefTRIAXone 2 GM in DEXTROSE 5% IN WATER 50 ML IV SCH (08:16)
[2019-03-20 08:29] LABS: Hematocrit 30.9 % (41.0-55.0); Hemoglobin 10.1 g/dL (13.5-16.5); Mean Cell Volume 93.4 fL (80.0-100.0); Mean Corpuscular HGB Conc 32.5 g/dL (31.0-36.0); Mean Platelet Volume 8.8 fL (7.4-10.4); Platelet Count 81 K/mcL (140-440); RBC 3.31 M/mcL (4.50-5.90); Red Cell Distribution Width 16.2 % (11.5-14.5); WBC 6.2 K/mcL (4.5-11.0)
--- NOTE | 2019-03-20 09:48 | Nephrology Progress Note ---
Subjective Patient information: Note initiated : 03/20/19 at 9:45 am Service Date, if different from initiated Date: [] Patient: Erwin Gaxiola 63 y/o M admitted on 03/17/19 for postive blood culture follow up. Chief Complaint: Admitted with fever. He is feeling a lot better. Objective - Vital Signs Vital signs: Vital Signs Temp Pulse Pulse Resp BP BP Pulse Ox 03/20/19 06:47 97.7 F 84 22 121/78 95 03/20/19 04:36 99.5 F H 84 22 117/73 96 03/19/19 23:47 98.7 F 94 H 24 H 127/79 96 03/19/19 22:45 89 110/72 100 03/19/19 22:30 92 H 103/73 98 03/19/19 22:15 91 H 106/60 100 03/19/19 22:00 92 H 105/59 100 03/19/19 21:45 92 H 98/66 96 03/19/19 21:30 94 H 102/70 98 03/19/19 21:15 94 H 109/72 99 03/19/19 21:00 96 H 100/72 97 03/19/19 20:45 95 H 109/73 96 03/19/19 20:30 100 H 109/71 96 03/19/19 20:15 110/71 03/19/19 20:00 99.4 F H 16 100/63 03/19/19 19:45 116/76 03/19/19 19:39 123/82 03/19/19 19:30 98 F 93 H 111/69 03/19/19 19:15 91 H 113/75 03/19/19 19:00 90 108/76 03/19/19 18:45 87 110/79 03/19/19 18:30 87 104/81 03/19/19 18:15 86 119/76 03/19/19 18:00 90 118/76 03/19/19 17:45 82 113/79 03/19/19 17:30 81 119/81 03/19/19 17:15 97.7 F 80 121/81 03/19/19 17:00 80 126/83 03/19/19 16:45 80 138/85 03/19/19 16:30 77 113/81 03/19/19 16:15 78 121/82 03/19/19 16:14 124/86 03/19/19 16:00 97.9 F 78 18 124/86 97 03/19/19 15:48 129/85 03/19/19 12:14 97.2 F 79 18 128/87 100 Intake and Output 03/19/19 03/20/19 03/20/19 21:59 05:59 13:59 Intake Total 220 340 70 Output Total 1999 Balance 340 70 Intake: IV 100 100 70 Oral 240 Tube Feeding 120 Output: Hemodialysis UF 1999 Other: Meal Dinner Percent of Meal Consumed 50% Stool Size Small Small Stool Color Brown Yellow Yellow Green Stool Consistency Loose Loose # of times incontinent of 1 Bowels Weight 105 lb 9.6 oz Intake & Output: Intake & Output 03/19/19 03/20/19 03/20/19 21:59 05:59 13:59 Intake Total 220 340 70 Output Total 1999 Balance 340 70 Weight 105 lb 9.6 oz Intake: IV 100 100 70 Oral 240 Tube Feeding 120 Output: Hemodialysis UF 1999 Other: Meal Dinner Percent of Meal Consumed 50% Stool Size Small Small Stool Color Brown Yellow Yellow Green Stool Consistency Loose Loose # of times incontinent of 1 Bowels - General Appearance General appearance: cachectic EENT: ATNC Neck: no JVD Respiratory: no kyphosis Cardiology: no murmurs Gastrointestinal: hypoactive bowel sounds Integumentary: no rash - Lab 03/20/19 04:35 03/20/19 04:35 Most recent lab results Calcium 8.4 mg/dl (8.6-10.4) L 03/20/19 04:35 Phosphorus 3.0 mg/dL (2.7-4.5) 03/20/19 04:35 Magnesium 2.1 mg/dL (1.6-2.5) 03/20/19 04:35 Assessment and Plan (1) ESRD (end stage renal disease) on dialysis Status: Chronic Comment: dialysis yesterday and tolerated well. Loosing weight. I agree with placement. Bacteremia. Has been treated with antibiotics. D/W Dr. Adhikari.
[2019-03-20] MEDS: LOPERAMIDE 2 MG CAPSULE PO PRN (10:15)
--- NOTE | 2019-03-20 12:09 | Internal Med Progress Note ---
Medical - PN: Subj Patient information: Note initiated : 03/20/19 at 12:06 pm Service Date, if different from initiated Date: [] Patient: Erwin Gaxiola a 63 y/o M admitted on 03/17/19 for postive blood culture follow up. Chief Complaint: [] Interval history: Mr. Gaxiola is a 63 year old Male with end-stage renal disease on hemodialysis managed by Dr. Chambers, who presents to the ER today the second time with 3 days' onset of weakness/fever and shaking chills. He was evaluated in the ER the day prior with above symptoms and was discharged however his blood cultures came back positive for Streptococcus pneumoniae. He was subsequently advised to return to ER Patient carries known history of hepatitis C and has been managed by infectious disease specialist Dr. Cox Initial workup in the ER was consistent with severe sepsis with white count 17.1 pro-calcitonin Over 20 Bandemia and Fever. Chest imaging revealed pneumonia. Significant presented history patient carries a history of recurrent aspiration pneumonia. Patient was started on antibiotic coverage on Rocephin as per ID specialist. Subsequently hospitalist service was consulted At the time of evaluation patient is fairly weak fatigued but was able to answer most questions. He denies productive sputum but endorses to fevers and chills and sweats. Denies headache photophobia or joint pain. He further denies new onset skin rash, dysuria. Patient endorses to mild dizziness and intermittent chronic diarrhea. Case was discussed with Dr. Chambers. 03/18-patient doing remarkably better. Fever defervesced. White count down from 17.6-14,000. Surveillance cultures pending. [facility] on repeat cultures 03/17, echocardiogram pending to rule out IgE. ESRD management ongoing per nephrology. Antibiotic coverage extended Flagyl for consideration of aspiration pneumonia. Pleural effusion on imaging. Rule out parapneumonic infusion/empyema, thoracentesis ordered 03/19- patient doing well. White count down from 14.78. Thoracentesis pending. No overnight fever or chills. And bleeding and tolerating diet. No concerns per staff. No telemetry events. Surveillance culture so far negative and last positive culture 03/17. Systolics stable around 110. Echocardiogram results pending. 03/20-patient doing clinically better, negative surveillance cultures. However thoracentesis likely empyema. Case discussed with surgery and pulmonology. Multiple loculations with septations. Surgery recommendations treatment of pneumonia and entirety followed by repeat chest imaging and if persistent loculation will need decortication/VATS at a later date. Will discuss with interventional radiology for possible TPA/tube thoracostomy. ID on board. Pulmonology will be available 03/21 for consult. Ongoing paralysis. No overnight fever chills. - Constitutional Vitals: Vital Signs Temp Pulse Resp BP Pulse Ox 97.7 F 84 22 121/78 95 03/20/19 06:47 03/20/19 06:47 03/20/19 06:47 03/20/19 06:47 03/20/19 06:47 Period Temp Pulse Resp BP Sys/William Pulse Ox Last 24 Hr 97.2 F-99.5 F 77-100 16-24 98-138/59-87 95-100 Intake and Output 03/19/19 03/20/19 03/20/19 21:59 05:59 13:59 Intake Total 220 340 120 Output Total 1999 Balance -1779 340 120 Weight 105 lb 9.6 oz Intake & Output: Intake & Output 03/19/19 03/20/19 03/20/19 21:59 05:59 13:59 Intake Total 220 340 120 Output Total 1999 Balance -1779 340 120 Weight 105 lb 9.6 oz Intake: IV 100 100 120 Rocephin 2 gm In Dextrose 5% in 50 Water 50 ml @ 100 mls/hr IV Q24H [facility] Rx#:[id number] Oral 240 Tube Feeding 120 Output: Hemodialysis UF 2000 Other: Meal Dinner Percent of Meal Consumed 50% Stool Size Small Small Stool Color Brown Yellow Yellow Green Stool Consistency Loose Loose # of times incontinent of 1 Bowels General appearance: no acute distress Exam: Absent breath sounds bases Alert oriented Intermittent tachycardia No anxiety Medical - PN: Obj Da - Labs CBC & Chem 7: 03/20/19 04:35 03/20/19 04:35 Labs: Abnormal Lab Results 03/20/19 03/20/19 03/19/19 04:35 04:35 03:10 WBC RBC 3.31 L Hgb 10.1 L Hct 30.9 L RDW 16.2 H Plt Count 81 L MPV Gran % Lymph % (Auto) Gran # Lymph # (Auto) Seg Neutrophils % 83 H Lymphocytes % 11 L Nucleated RBCs 1 H Platelet Estimate Decreased A RBC Morphology Abnorm A Anisocytosis 1+ A Sodium 127 L Chloride 95 L 88 L BUN 45 H 85 H Creatinine 3.3 H 5.5 H* Glucose 151 H 163 H Calcium 8.4 L 8.2 L Phosphorus 5.7 H Alkaline Phosphatase 159 H Albumin 2.1 L 2.0 L Globulin 4.4 H 4.2 H Albumin/Globulin Ratio 0.5 L 0.5 L 03/19/19 03/18/19 03/18/19 03:10 03:55 03:55 WBC 14.0 H RBC 3.20 L 3.18 L Hgb 9.8 L 9.7 L Hct 29.9 L 29.9 L RDW 16.6 H 16.9 H Plt Count 75 L 81 L MPV 7.1 L Gran % Lymph % (Auto) Gran # Lymph # (Auto) Seg Neutrophils % 88 H 87 H Lymphocytes % 8 L 4 L Nucleated RBCs 1 H Platelet Estimate Decreased A Decreased A RBC Morphology Abnorm A Abnorm A Anisocytosis 1+ A 1+ A Sodium 127 L Chloride 89 L BUN 65 H Creatinine 4.4 H Glucose 69 L Calcium 8.2 L Phosphorus 5.6 H Alkaline Phosphatase Albumin 1.9 L Globulin 4.2 H Albumin/Globulin Ratio 0.5 L 03/17/19 03/17/19 15:30 15:30 WBC 17.1 H RBC 3.75 L Hgb 11.3 L Hct 35.3 L RDW 17.1 H Plt Count 92 L MPV Gran % 94.9 H Lymph % (Auto) 3.7 L Gran # 16.2 H Lymph # (Auto) 0.6 L Seg Neutrophils % Lymphocytes % Nucleated RBCs Platelet Estimate RBC Morphology Anisocytosis Sodium 128 L Chloride 87 L BUN 54 H Creatinine 3.8 H Glucose Calcium Phosphorus Alkaline Phosphatase Albumin 2.7 L Globulin 5.1 H Albumin/Globulin Ratio 0.5 L Meds: Medications Acetaminophen (Tylenol) 650 mg PO Q4-6HP PRN PRN Reason: PAIN/FEVER > 101 Albuterol/Ipratropium (Duoneb) 3 ml NEB Q4HP PRN PRN Reason: Shortness Of Breath Calcium Acetate (Phoslo) 667 mg PO TIDCC [facility] Last Admin: 03/20/19 08:14 Dose: 667 mg Documented by: Cefazolin Sodium (Ancef) 2 gm IV MoWe@1400 [facility] Docusate Sodium (Colace) 100 mg PO BID [facility] Last Admin: 03/20/19 08:15 Dose: Not Given Documented by: Magnesium Sulfate (Magnesium Sulfate) 2 gm in 50 mls @ 50 mls/hr IV UD PRN PRN Reason: MG = or < 1.7 Acetaminophen (Ofirmev) 1,000 mg in 100 mls @ 200 mls/hr IV Q6HP PRN PRN Reason: PAIN/FEVER > 101 Metronidazole (Flagyl) 500 mg in 100 mls @ 100 mls/hr IV Q8H [facility]; Protocol Last Infusion: 03/20/19 06:30 Dose: 0 mls/hr Documented by: Cefazolin Sodium 3 gm/ (Dextrose) 50 mls @ 100 mls/hr IV Fr@1400 [facility] Iron Carb/Multivit/[place]/Folic Acid (Multivitamin W/Minerals) 1 tab PO DAILY [facility] Last Admin: 03/20/19 08:15 Dose: 1 tab Documented by: Loperamide HCl (Imodium) 2 mg PO UD PRN PRN Reason: Diarrhea Last Admin: 03/20/19 10:15 Dose: 2 mg Documented by: Megestrol Acetate (Megace) 40 mg PO DAILY [facility] Last Admin: 03/20/19 08:15 Dose: 40 mg Documented by: Ondansetron HCl (Zofran) 4 mg IV Q4-6HP PRN PRN Reason: Nausea And Vomiting Glecaprevir/Pibrentasvir [ Mavyret] 100-40 Mg Tab 3 dose PO QDAY [facility] Last Admin: 03/20/19 08:15 Dose: 3 dose Documented by: Senna/Docusate Sodium (Senna Plus Tablet) 1 tab PO HS [facility] Last Admin: 03/19/19 20:04 Dose: Not Given Documented by: Sevelamer Carbonate (Renvela) 1,600 mg PO TIDCC [facility] Last Admin: 03/20/19 08:14 Dose: 1,600 mg Documented by: Sodium Chloride (Saline Flush) 10 ml IV Q8 [facility] Last Admin: 03/20/19 05:48 Dose: 10 ml Documented by: Medical - PN: A/P - Time Spent With Patient Total time spent is greater than 50% in coordination of care (as documented) at patient's floor/unit and/or counseling patient: 25 - 35 minutes (1) Bacteremia due to Streptococcus pneumoniae Status: Acute Assessment and plan: * Bilateral Pneumonia likely aspiration versus nosocomial, clinical improvement noted on antibiotic coverage including Rocephin/Flagyl * Empyema- discussed with ID/pulmonology/surgery. Tube thoracostomy/TPA lysis followed by complete treatment of pneumonia followed by repeat chest imaging and VATS/decortication and later date * Streptococcus pneumonia bacteremia-continue surveillance cultures, last positive blood culture 03/17 [facility]. Cefazolin as per ID, source likely pneumonia/empyema. Echocardiogram no evidence of vegetation. * Severe sepsis secondary to above with end organ dysfunction - clinical improvement noted. * ESRD on hemodialysis managed per nephrology. * History of hepatitis C-continue treatment as per infectious disease specialist * Severe weight loss/protein calorie malnutrition and deconditioning-nutrition support/protein calorie supplements/aggressive physical therapy * Full code * Prophylaxis heparin Plan * Antibiotics de-escalate to cefazolin * Tube thoracostomy/TPA * PT OT nutrition support * Pre-existing medical condition management as above * Nephrology and ID consult Current Visit: Yes
[2019-03-20] MEDS ORDERED: IOPAMIDOL 100 ML BOTTLE IV ONE (14:02)
--- NOTE | 2019-03-20 14:57 | Cat Scan Report ---
CLINICAL INFORMATION: Pneumonia and pleural effusion with possible empyema COMPARISON: Chest x-ray on 03/19/19 TECHNIQUE:100 cc of Optiray 320 were injected intravenously, and 20 seconds later, 2.5 mm helical slices were obtained from the lung apices through the bases. Following reconstruction, 2.5 mm sagittal, coronal and axial reformations were processed. The exam was reviewed at lung, mediastinal and bone window. 7 mm axial MIPS were also obtained . The radiation exposure was limited using dose reduction technology. FINDINGS: Patient has a moderate size pleural effusion in the right thorax. This layers from the diaphragm to the apex. No septations are identified within the pleural fluid. This represents a change compared with the ultrasound guided thoracentesis performed yesterday. At that time the fluid was loculated with multiple thin septations. The pleura does not appear to be abnormally thickened. There is no pneumothorax following yesterday's thoracentesis. There is a large consolidating alveolar infiltrate throughout the right lower lobe. There is volume loss and multiple air bronchograms. There is a milder infiltrate in the left lower lobe, predominantly involving the posterior basal segment but extending into the superior segment. Linear bands of scar atelectasis are present in the right middle lobe. There is also mild alveolar consolidation adjacent to the pleura in the posterior segment of the right upper lobe. Trace amount of pleural fluid is present posteriorly in the left mid thorax. There are couple small calcified granulomata in both lower lobes. Bronchiectasis is seen in both lower lobes with milder involvement in the right middle lobe. There are a few small peripheral bulla in the right apex. There are several reactive lymph nodes in the mediastinum. They measure up to 1.9 cm. The pulmonary arteries are normal without evidence of pulmonary emboli. The aorta is normal in caliber. There are scattered plaques in aortic arch and also moderate plaque formation in the proximal left anterior descending coronary artery. The heart size is normal. No pericardial effusion is present. No free fluid is seen beneath the diaphragm. The stomach is distended with large amount of ingested material. IMPRESSION: Moderate size pleural effusion in the right thorax. This appears to layer on today's exam and no loculations are identified. Trace amount of pleural fluid in the left posterior thorax Large zone of consolidated lung parenchyma in the right lower lobe which may be a combination of pneumonia and atelectasis with milder consolidation in the left lower lobe, right middle lobe and right upper lobe Bronchiectasis Old granulomatous disease Interpreted and Authenticated by: Surendra Iyer 03/20/19
[2019-03-20] MEDS ORDERED: ALTEPLASE IV SCH (15:00)
[2019-03-20] MEDS ORDERED: SODIUM CHLORIDE 0.9% IV SCH (15:00)
--- NOTE | 2019-03-20 17:07 | Infectious Disease Consult ---
History of Present Illness Patient information: Note initiated : 03/20/19 at 4:55 pm Service Date, if different from initiated Date: [] Patient: Erwin Gaxiola 63 y/o M admitted on 03/17/19 for postive blood culture follow up. Chief Complaint: [] Consult date: 03/20/19 Requesting Physician: Mando Adhikari Reason for Consult: Strep pneumo bacteremia Chief complaint: I had fever History of present illness: 63 year old man with PMHx of: - ESRD, on HD (M/W/F) through right arm AV fistula - chronic hep C: currently on Mayvret Pt had been feeling weak, short of breath, chills since 2-3 days before admission. On his HD on 03/16, he was told, that he had a fever and should go to ED. Pt was seen in the ED, with WBC 15k, blood Cx sent, and he was sent home after feeling better. I was informed of a positive blood Cx fro Strept pneumo on 03/17, when ED was notified and subsequently pt was asked to come to the [facility] for admission. In the ED on 03/17, he was afebrile, BP 84/54, RR 16, HR 95. WBC was 17.1 with neutrophilic predominance, pro-calcitonin 21.2. CXR showed "Large patchy bilateral lower lobe infiltrates and moderate right pleural effusion worsening since an x-ray over two months ago". Pt was started on IV Ceftriaxone for coverage against Strep pneumo and new blood Cx were sent. Pt had 2/2 sets +ve from blood Cx sent on 03/17, with subseq Cx neg. He underwent US-guided drainage of the right pleural effusion on 03/19 with pH 7.52, Glu 135, 9704 WBCs with 95% PMNs, LDH 512, TP 3.9, neg GS. The fluid was thought to be exudative. Pt at time of visit today confirmed the above history. He added that he feels better now. He endorses exertional SOB, chest pain on right side, denied any cough. Denied any n/v, diarrhea, fever, chills. Also mentioned that he is trying to eat as much to gain weight. He confirmed that he is taking his MAYVRET as instructed and has not missed any doses. Review of Systems All systems PM: reviewed and no additional remarkable complaints except as stated Past History Past family history: not pertinent to current presentation Past social history: Lives with his daughter in [place] Medications and Allergies Home Medications Medication Instructions Recorded Confirmed Type Loperamide HCl [Loperamide] 4 mg PO PRN PRN MDD 16 mg 11/27/18 03/17/19 History Megestrol Acetate [Megace] 40 mg PO DAILY 11/27/18 03/17/19 History calcium acetate 667 mg capsule 667 mg PO TID cap 12/29/18 03/17/19 History sevelamer carbonate 800 mg tablet 1,600 mg PO TID tab 12/29/18 03/17/19 History food supplement, lactose-reduced 1 each PO TID ml 02/02/19 03/17/19 History oral liquid glecaprevir 100 mg-pibrentasvir 40 3 tab PO QDAY #270 tab 02/02/19 03/17/19 Rx mg tablet Allergies Allergy/AdvReac Type Severity Reaction Status Date / Time No Known Drug Allergies Allergy Verified 02/02/19 10:00 Physical Examination Vital signs: Temp Pulse Resp BP Pulse Ox 36.1 C 84 20 125/78 96 03/20/19 16:00 03/20/19 16:00 03/20/19 16:00 03/20/19 16:00 03/20/19 16:00 General appearance: no acute distress Eyes pulmonary: nonicteric ENT: other (No thrush) Auscultation: bilateral: diminished breath sounds (Has bilateral crackles with bronchial breath sounds over lower half of right posterior chest, rest vesicular breath sounds) Cardiovascular: other (S1 normal S2 normal, no murmurs) Gastrointestinal: normoactive bowel sounds, soft, non-tender Extremities: no edema, other (The AV fistula in right arm has palpatory and auscultatory thrill) Results - Laboratory Findings CBC and BMP: 03/20/19 04:35 03/20/19 04:35 Abnormal lab findings: Abnormal Labs 03/17/19 03/17/19 03/18/19 15:30 15:30 03:55 WBC 17.1 H 14.0 H RBC 3.75 L 3.18 L Hgb 11.3 L 9.7 L Hct 35.3 L 29.9 L RDW 17.1 H 16.9 H Plt Count 92 L 81 L MPV 7.1 L Gran % 94.9 H Lymph % (Auto) 3.7 L Gran # 16.2 H Lymph # (Auto) 0.6 L Seg Neutrophils % 87 H Lymphocytes % 4 L Nucleated RBCs 1 H Platelet Estimate Decreased A RBC Morphology Abnorm A Anisocytosis 1+ A Sodium 128 L Chloride 87 L BUN 54 H Creatinine 3.8 H Glucose Calcium Phosphorus Alkaline Phosphatase Albumin 2.7 L Globulin 5.1 H Albumin/Globulin Ratio 0.5 L 03/18/19 03/19/19 03/19/19 03:55 03:10 03:10 WBC RBC 3.20 L Hgb 9.8 L Hct 29.9 L RDW 16.6 H Plt Count 75 L MPV Gran % Lymph % (Auto) Gran # Lymph # (Auto) Seg Neutrophils % 88 H Lymphocytes % 8 L Nucleated RBCs Platelet Estimate Decreased A RBC Morphology Abnorm A Anisocytosis 1+ A Sodium 127 L 127 L Chloride 89 L 88 L BUN 65 H 85 H Creatinine 4.4 H 5.5 H* Glucose 69 L 163 H Calcium 8.2 L 8.2 L Phosphorus 5.6 H 5.7 H Alkaline Phosphatase 159 H Albumin 1.9 L 2.0 L Globulin 4.2 H 4.2 H Albumin/Globulin Ratio 0.5 L 0.5 L 03/20/19 03/20/19 04:35 04:35 WBC RBC 3.31 L Hgb 10.1 L Hct 30.9 L RDW 16.2 H Plt Count 81 L MPV Gran % Lymph % (Auto) Gran # Lymph # (Auto) Seg Neutrophils % 83 H Lymphocytes % 11 L Nucleated RBCs 1 H Platelet Estimate Decreased A RBC Morphology Abnorm A Anisocytosis 1+ A Sodium Chloride 95 L BUN 45 H Creatinine 3.3 H Glucose 151 H Calcium 8.4 L Phosphorus Alkaline Phosphatase Albumin 2.1 L Globulin 4.4 H Albumin/Globulin Ratio 0.5 L Microbiology: Microbiology 03/19/19 10:46 Pleural Fluid Gram Stain - Final 03/19/19 10:46 Pleural Fluid Anaerobic Culture - Preliminary 03/19/19 10:46 Pleural Fluid Gram Stain - Final 03/19/19 10:46 Pleural Fluid Body Fluid Culture - Preliminary 03/18/19 10:02 Blood Blood Culture - Preliminary 03/18/19 10:08 Blood Blood Culture - Preliminary 03/19/19 03:17 Blood Blood Culture - Preliminary 03/19/19 03:10 Blood Blood Culture - Preliminary 03/17/19 15:55 Blood Blood Culture - Final Streptococcus pneumoniae 03/17/19 15:30 Blood Blood Culture - Final Streptococcus pneumoniae 03/17/19 20:08 Nose MRSA (PCR) - Final Assessment and Plan - Narrative A/P Narrative: Assessment: 1. Strep pneumo bacteremia: Blood cultures negative since 03/18/19 As blood cultures returned negative, there is no murmur; my suspicion for endocarditis is low Status post 4 days of IV ceftriaxone 2. Right lower lobe pneumonia with parapneumonic effusion Based on exudative appearance of the effusion and chest x-ray findings Recommendations: Consider therapeutic thoracentesis. Discussed with Dr. Iyer and Dr. Escobar. Plan to do it tomorrow Stop IV ceftriaxone. For ease of dosing, will switch to IV Cefazolin 2 gm on Tuesday after HD, 2 gm on Tuesday after HD and 3m on Tuesday after HD - will document duration based on pleural fluid Cx and repeat chest imaging in next 2 weeks will follow Nam Cox MD Infectious diseases
[2019-03-20] MEDS: SENNOSIDES/DOCUSATE SODIUM 1 TAB TABLET PO SCH (21:23)
[2019-03-21 06:26] LABS: ALT/SGPT 6 U/l (0-40); AST/SGOT 11 U/l (0-37); Albumin 1.9 gm/dL (3.2-5.2); Albumin/Globulin Ratio 0.5 (1.0-2.3); Alkaline Phosphatase 91 U/L (39-117); Bilirubin,Direct 0.3 mg/dL (0.0-0.3); Bilirubin,Total 0.5 mg/dL (0.0-1.0); Blood Urea Nitrogen 59 mg/dl (8-23); Calcium 8.5 mg/dl (8.6-10.4); Carbon Dioxide 24 mmol/L (22-30); Chloride 93 mmol/L (96-108); Gamma Glutamyl Transpeptidase 23 U/L (8-61); Globulin 4.1 gm/dL (2.2-3.7); Glomerular Filtration Rate 13; Glucose 118 mg/dL (70-105); Lactate Dehydrogenase 133 U/L (94-250); Magnesium 2.2 mg/dL (1.6-2.5); Phosphorous 3.2 mg/dL (2.7-4.5); Potassium 4.1 mmol/L (3.3-5.1); Sodium 129 mmol/L (133-145); Triglycerides 69 mg/dl (<150); Uric Acid 4.1 mg/dL (2.5-8.0)
[2019-03-21] MEDS: 0.9 % SODIUM CHLORIDE 10 ML SYRINGE IV SCH ×3 (06:27→20:09)
[2019-03-21] MEDS: metroNIDAZOLE 500 MG/100 ML BAG IV SCH ×3 (06:27→22:17)
[2019-03-21] MEDS: CALCIUM ACETATE 667 MG CAPSULE PO SCH ×3 (07:56→18:04)
[2019-03-21] MEDS: SEVELAMER 800 MG TABLET PO SCH ×3 (07:56→18:05)
[2019-03-21] MEDS ORDERED: SODIUM CHLORIDE 0.9% IV SCH (09:00)
[2019-03-21] MEDS ORDERED: ALTEPLASE IV SCH (09:00)
--- NOTE | 2019-03-21 09:03 | Nephrology Progress Note ---
Subjective Patient information: Note initiated : 03/21/19 at 9:02 am Service Date, if different from initiated Date: [] Patient: Erwin Gaxiola 63 y/o M admitted on 03/17/19 for postive blood culture follow up. Chief Complaint: [] Feeling better. Apetite is better. No fevers. Objective - Vital Signs Vital signs: Vital Signs Temp Pulse Pulse Resp BP Pulse Ox 03/21/19 07:31 98.9 F 79 18 133/78 96 03/21/19 03:54 98.7 F 80 24 H 118/64 03/20/19 23:13 97.5 F 104 H 24 H 110/64 03/20/19 19:56 99.4 F H 80 20 100/60 03/20/19 16:00 97.0 F 84 20 125/78 96 03/20/19 12:00 97.2 F 86 20 136/87 98 Intake and Output 03/20/19 03/21/19 03/21/19 21:59 05:59 13:59 Intake Total 340 700 100 Output Total 0 Balance 340 700 100 Intake: IV 100 100 100 Oral 240 600 Output: Void Amount 0 Other: Weight 106 lb Intake & Output: Intake & Output 03/20/19 03/21/19 03/21/19 21:59 05:59 13:59 Intake Total 340 700 100 Output Total 0 Balance 340 700 100 Weight 106 lb Intake: IV 100 100 100 Oral 240 600 Output: Void Amount 0 - General Appearance General appearance: cachectic EENT: ATNC Neck: no JVD Respiratory: no kyphosis Cardiology: no murmurs Gastrointestinal: hypoactive bowel sounds - Lab 03/20/19 04:35 03/21/19 04:15 Most recent lab results Calcium 8.5 mg/dl (8.6-10.4) L 03/21/19 04:15 Phosphorus 3.2 mg/dL (2.7-4.5) 03/21/19 04:15 Magnesium 2.2 mg/dL (1.6-2.5) 03/21/19 04:15 Assessment and Plan (1) ESRD (end stage renal disease) on dialysis Status: Chronic Comment: dialysis today. Loosing weight. On Megace and IDPN. Bacteremia. Has been treated with antibiotics.
[2019-03-21] MEDS: MEGESTROL ACETATE 400 MG/10 ML ORAL.SUSP PO SCH (09:06)
[2019-03-21] MEDS: MULTIVIT,THER IRON,CA,FA & MIN 1 TABLET PO SCH (09:06)
[2019-03-21] MEDS: DOCUSATE SODIUM 100 MG CAPSULE PO SCH ×3 (09:08→21:15)
[2019-03-21] MEDS: PIBRENTASVIR PO SCH ×2 (09:14→18:05)
[2019-03-21] MEDS: GLECAPREVIR PO SCH ×2 (09:14→18:05)
[2019-03-21 09:53] LABS: Anisocytosis 1+ (NONE SEEN); Band Neutrophils % 1 % (0-10); Lymphocytes % 22 % (15-49); Monocytes % (Manual) 6 % (1-12); Platelet Estimate DECREASED (NORMAL); RBC Morphology ABNORM (NORMAL); Segmented Neutrophils % 71 % (38-78)
[2019-03-21 09:54] LABS: Hematocrit 29.2 % (41.0-55.0); Hemoglobin 9.5 g/dL (13.5-16.5); Mean Cell Volume 92.6 fL (80.0-100.0); Mean Corpuscular HGB Conc 32.6 g/dL (31.0-36.0); Mean Platelet Volume 8.5 fL (7.4-10.4); Platelet Count 66 K/mcL (140-440); RBC 3.15 M/mcL (4.50-5.90); Red Cell Distribution Width 16.8 % (11.5-14.5); WBC 5.2 K/mcL (4.5-11.0)
--- NOTE | 2019-03-21 11:11 | Infectious Disease Prog Note ---
Subjective Patient information: Note initiated : 03/21/19 at 10:22 am Service Date, if different from initiated Date: [] Patient: Erwin Gaxiola 63 y/o M admitted on 03/17/19 for postive blood culture follow up. Chief Complaint: [] Interval history: Pt doing well. Feels better. Denied any fevers, chills, n/v. Endorses chr diarrhea (no worsening). Discussed the plan to do 2 weeks of IV antibiotics, and removal of pleural fluid today. Voices understanding. Objective Objective Narrative: ao x 3, in nad no thrush chest has absent breath sounds at right lung base with dullness to percussion, bronchial breath sounds over the upper edge of effusion (right upper back) left side of chest has decreased breath sounds at base with vesicular breath sounds elsewhere. s1 s2 normal soft, non tender abd no edema - Vital Signs Vital signs: Vital Signs Temp Pulse Pulse Resp BP Pulse Ox 03/21/19 07:31 37.2 C 79 18 133/78 96 03/21/19 03:54 37.1 C 80 24 H 118/64 03/20/19 23:13 36.4 C 104 H 24 H 110/64 03/20/19 19:56 37.4 C H 80 20 100/60 03/20/19 16:00 36.1 C 84 20 125/78 96 03/20/19 12:00 36.2 C 86 20 136/87 98 Intake and Output 03/20/19 03/21/19 03/21/19 21:59 05:59 13:59 Intake Total 340 700 100 Output Total 0 Balance 340 700 100 Intake: IV 100 100 100 Oral 240 600 Output: Void Amount 0 Other: Weight 48.081 kg Intake & Output: Intake & Output 03/20/19 03/21/19 03/21/19 21:59 05:59 13:59 Intake Total 340 700 100 Output Total 0 Balance 340 700 100 Weight 48.081 kg Intake: IV 100 100 100 Oral 240 600 Output: Void Amount 0 - Lab 03/21/19 04:15 03/21/19 04:15 Most recent lab results Calcium 8.5 mg/dl (8.6-10.4) L 03/21/19 04:15 Phosphorus 3.2 mg/dL (2.7-4.5) 03/21/19 04:15 Magnesium 2.2 mg/dL (1.6-2.5) 03/21/19 04:15 Microbiology 03/20/19 08:15 Blood Blood Culture - Preliminary 03/19/19 10:46 Pleural Fluid Gram Stain - Final 03/19/19 10:46 Pleural Fluid Anaerobic Culture - Preliminary 03/19/19 10:46 Pleural Fluid Gram Stain - Final 03/19/19 10:46 Pleural Fluid Body Fluid Culture - Preliminary 03/19/19 03:17 Blood Blood Culture - Preliminary 03/19/19 03:10 Blood Blood Culture - Preliminary 03/18/19 10:02 Blood Blood Culture - Preliminary 03/18/19 10:08 Blood Blood Culture - Preliminary 03/17/19 15:55 Blood Blood Culture - Final Streptococcus pneumoniae 03/17/19 15:30 Blood Blood Culture - Final Streptococcus pneumoniae 03/17/19 20:08 Nose MRSA (PCR) - Final Medications Active Medications: Acetaminophen (Tylenol) 650 mg PO Q4-6HP PRN PRN Reason: PAIN/FEVER > 101 Albuterol/Ipratropium (Duoneb) 3 ml NEB Q4HP PRN PRN Reason: Shortness Of Breath Calcium Acetate (Phoslo) 667 mg PO TIDCC [facility] Last Admin: 03/21/19 07:56 Dose: 667 mg Documented by: Admin: 03/20/19 17:10 Dose: 667 mg Documented by: [email or web address] Admin: 03/20/19 12:16 Dose: 667 mg Documented by: [email or web address] Admin: 03/20/19 08:14 Dose: 667 mg Documented by: [email or web address] Admin: 03/19/19 19:59 Dose: 667 mg Documented by: Admin: 03/19/19 12:15 Dose: 667 mg Documented by: [email or web address] Admin: 03/19/19 08:34 Dose: 667 mg Documented by: [email or web address] Admin: 03/18/19 17:24 Dose: 667 mg Documented by: [email or web address] Admin: 03/18/19 12:24 Dose: 667 mg Documented by: [email or web address] Admin: 03/18/19 09:00 Dose: 667 mg Documented by: [email or web address] Cefazolin Sodium (Ancef) 2 gm IV MoWe@1400 DIOGENES Docusate Sodium (Colace) 100 mg PO BID [facility] Last Admin: 03/21/19 09:08 Dose: Not Given Documented by: [email or web address] Non-Admin Reason: Loose Stool Admin: 03/20/19 21:23 Dose: Not Given Documented by: [email or web address] Non-Admin Reason: Loose Stool Admin: 03/20/19 08:15 Dose: Not Given Documented by: [email or web address] Non-Admin Reason: Loose Stool Admin: 03/19/19 20:04 Dose: Not Given Documented by: CONOR Non-Admin Reason: Patient Refused Admin: 03/19/19 08:36 Dose: Not Given Documented by: [email or web address] Non-Admin Reason: Loose Stool Admin: 03/18/19 21:16 Dose: Not Given Documented by: [email or web address] Non-Admin Reason: Loose Stool Admin: 03/18/19 09:01 Dose: 100 mg Documented by: [email or web address] Admin: 03/17/19 21:14 Dose: 100 mg Documented by: DIANA Magnesium Sulfate (Magnesium Sulfate) 2 gm in 50 mls @ 50 mls/hr IV UD PRN PRN Reason: MG = or < 1.7 Acetaminophen (Ofirmev) 1,000 mg in 100 mls @ 200 mls/hr IV Q6HP PRN PRN Reason: PAIN/FEVER > 101 Metronidazole (Flagyl) 500 mg in 100 mls @ 100 mls/hr IV Q8H [facility]; Protocol Last Infusion: 03/21/19 07:26 Dose: 0 mls/hr Documented by: Admin: 03/21/19 06:27 Dose: 100 mls/hr Documented by: [email or web address] Infusion: 03/20/19 22:23 Dose: 100 mls/hr Documented by: [email or web address] Admin: 03/20/19 21:23 Dose: 100 mls/hr Documented by: [email or web address] Infusion: 03/20/19 15:18 Dose: 0 mls/hr Documented by: [email or web address] Admin: 03/20/19 14:18 Dose: 100 mls/hr Documented by: [email or web address] Infusion: 03/20/19 14:18 Dose: 0 mls/hr Documented by: [email or web address] Infusion: 03/20/19 06:30 Dose: 0 mls/hr Documented by: [email or web address] Admin: 03/20/19 05:48 Dose: 100 mls/hr Documented by: Infusion: 03/19/19 23:55 Dose: 0 mls/hr Documented by: Admin: 03/19/19 22:44 Dose: 100 mls/hr Documented by: Infusion: 03/19/19 16:57 Dose: 0 mls/hr Documented by: Admin: 03/19/19 14:54 Dose: 100 mls/hr Documented by: Infusion: 03/19/19 08:06 Dose: 0 mls/hr Documented by: Admin: 03/19/19 05:29 Dose: 100 mls/hr Documented by: Infusion: 03/18/19 22:15 Dose: 100 mls/hr Documented by: Admin: 03/18/19 21:15 Dose: 100 mls/hr Documented by: Infusion: 03/18/19 15:22 Dose: 100 mls/hr Documented by: Admin: 03/18/19 14:22 Dose: 100 mls/hr Documented by: Infusion: 03/18/19 07:00 Dose: 100 mls/hr Documented by: Admin: 03/18/19 05:56 Dose: 100 mls/hr Documented by: Infusion: 03/17/19 22:53 Dose: 100 mls/hr Documented by: Admin: 03/17/19 21:53 Dose: 100 mls/hr Documented by: DIANA Cefazolin Sodium 3 gm/ (Dextrose) 50 mls @ 100 mls/hr IV Fr@1400 DIOGENES Iron Carb/Multivit/Tool And Gauge Inspector/Folic Acid (Multivitamin W/Minerals) 1 tab PO DAILY DIOGENES Last Admin: 03/21/19 09:06 Dose: 1 tab Documented by: Admin: 03/20/19 08:15 Dose: 1 tab Documented by: Admin: 03/19/19 08:34 Dose: 1 tab Documented by: Admin: 03/18/19 09:00 Dose: 1 tab Documented by: [email or web address] Loperamide HCl (Imodium) 2 mg PO UD PRN PRN Reason: Diarrhea Last Admin: 03/20/19 10:15 Dose: 2 mg Documented by: Admin: 03/19/19 11:28 Dose: 2 mg Documented by: Admin: 03/18/19 21:16 Dose: 2 mg Documented by: [email or web address] Admin: 03/18/19 09:00 Dose: 2 mg Documented by: CICI Megestrol Acetate (Megace) 40 mg PO DAILY [facility] Admin: 03/21/19 09:06 Dose: 40 mg Documented by: Admin: 03/20/19 08:15 Dose: 40 mg Documented by: [email or web address] Admin: 03/19/19 08:35 Dose: 40 mg Documented by: [email or web address] Admin: 03/18/19 11:38 Dose: 40 mg Documented by: [email or web address] Admin: 03/18/19 10:13 Dose: Not Given Documented by: [email or web address] Non-Admin Reason: Unavailable Ondansetron HCl (Zofran) 4 mg IV Q4-6HP PRN PRN Reason: Nausea And Vomiting Glecaprevir/Pibrentasvir [ Mavyret] 100-40 Mg Tab 3 dose PO QDAY [facility] Admin: 03/21/19 09:14 Dose: Not Given Documented by: [email or web address] Non-Admin Reason: Unavailable Admin: 03/20/19 08:15 Dose: 3 dose Documented by: [email or web address] Admin: 03/19/19 08:34 Dose: 3 dose Documented by: [email or web address] Admin: 03/18/19 12:34 Dose: 3 dose Documented by: [email or web address] Admin: 03/18/19 10:35 Dose: Not Given Documented by: [email or web address] Non-Admin Reason: Unavailable Senna/Docusate Sodium (Senna Plus Tablet) 1 tab PO HS [facility] Admin: 03/20/19 21:23 Dose: Not Given Documented by: [email or web address] Non-Admin Reason: Loose Stool Admin: 03/19/19 20:04 Dose: Not Given Documented by: CONOR Non-Admin Reason: Patient Refused Admin: 03/18/19 21:16 Dose: Not Given Documented by: [email or web address] Non-Admin Reason: Loose Stool Admin: 03/17/19 21:14 Dose: 1 tab Documented by: DIANA Sevelamer Carbonate (Renvela) 1,600 mg PO TIDCC [facility] Admin: 03/21/19 07:56 Dose: 1,600 mg Documented by: Admin: 03/20/19 17:10 Dose: 1,600 mg Documented by: [email or web address] Admin: 03/20/19 12:16 Dose: 1,600 mg Documented by: [email or web address] Admin: 03/20/19 08:14 Dose: 1,600 mg Documented by: [email or web address] Admin: 03/19/19 19:59 Dose: 1,600 mg Documented by: Admin: 03/19/19 12:15 Dose: 1,600 mg Documented by: [email or web address] Admin: 03/19/19 08:34 Dose: 1,600 mg Documented by: [email or web address] Admin: 03/18/19 17:24 Dose: 1,600 mg Documented by: [email or web address] Admin: 03/18/19 12:24 Dose: 1,600 mg Documented by: [email or web address] Admin: 03/18/19 09:00 Dose: 1,600 mg Documented by: CICI Sodium Chloride (Saline Flush) 10 ml IV Q8 DIOGENES Last Admin: 03/21/19 06:27 Dose: 10 ml Documented by: Admin: 03/20/19 21:23 Dose: 10 ml Documented by: [email or web address] Admin: 03/20/19 14:18 Dose: 10 ml Documented by: [email or web address] Admin: 03/20/19 05:48 Dose: 10 ml Documented by: Admin: 03/19/19 23:54 Dose: 10 ml Documented by: Admin: 03/19/19 14:55 Dose: 10 ml Documented by: [email or web address] Admin: 03/19/19 05:29 Dose: 10 ml Documented by: Admin: 03/18/19 21:16 Dose: 10 ml Documented by: [email or web address] Admin: 03/18/19 17:24 Dose: 10 ml Documented by: [email or web address] Admin: 03/18/19 06:59 Dose: 10 ml Documented by: [email or web address] Admin: 03/18/19 05:57 Dose: 10 ml Documented by: Admin: 03/17/19 21:14 Dose: 10 ml Documented by: DIANA Assessment and Plan - Narrative A/P Narrative: 1. Strep pneumo bacteremia: Blood cultures negative since 03/18/19 As blood cultures returned negative, there is no murmur; my suspicion for endocarditis is low. TTE neg for any vegetations Status post 4 days of IV ceftriaxone 2. Right lower lobe pneumonia with parapneumonic effusion Based on exudative nature of the effusion and chest x-ray findings - no concerns for empyema based on pH and Glu - CT chest neg for any loculated pleural effusion 03/20 - pleural fluid Cx neg so far Recommendations: Consider therapeutic thoracentesis. Discussed with Dr. Iyer and Dr. Escobar. Plan to do it today Continue IV Cefazolin as follows: 2 gm on Tuesday after HD, 2 gm on Tuesday after HD and 3m on Tuesday after HD Stop date for IV Cefazolin: 04/02/19 - will recommend repeating chest xray (PA and lateral decubitus) on 04/02/19. - ID clinic follow scheduled for 04/02/19 at 3:30 pm Nam Cox MD Infectious diseases
[2019-03-21] MEDS ORDERED: ACETAMINOPHEN 700 MG/70 ML BOTTLE IV PRN (12:27)
[2019-03-21] MEDS ORDERED: LOPERAMIDE 2 MG CAPSULE PO PRN (12:27)
[2019-03-21] MEDS ORDERED: ACETAMINOPHEN 325 MG TABLET PO PRN (12:27)
[2019-03-21] MEDS ORDERED: IPRATROPIUM/ALBUTEROL 3 ML AMPUL.NEB NEB PRN (12:27)
[2019-03-21] MEDS ORDERED: ONDANSETRON 4 MG/2 ML VIAL IV PRN (12:27)
[2019-03-21] MEDS ORDERED: MAGNESIUM SULFATE 2 GM/50 ML BAG IV PRN (12:27)
--- NOTE | 2019-03-21 12:32 | XRay Report ---
HISTORY: Follow-up after right side thoracentesis FINDINGS: There is no pneumothorax following the preceding right-sided thoracentesis. There is significantly improved aeration of the right lung following drainage of the pleural fluid. There is a small amount of residual loculated pleural fluid above the diaphragm. The atelectasis/pneumonia has improved in both lower lobes with the greatest improvement in the right lower lobe. IMPRESSION: Improved aeration of both lungs and no complication following the preceding right-sided thoracentesis Interpreted and Authenticated by: Surendra Iyer 03/21/19
--- NOTE | 2019-03-21 12:35 | Ultrasound Report ---
CLINICAL INFORMATION: Pleural effusion, pneumonia and possible empyema TECHNIQUE: The procedure risks were spine the patient consented. There is a multiloculated collection of pleural fluid posteriorly and inferiorly in the right lower thorax. The skin over the right lower chest was prepped with ChloraPrep and then anesthetized with 1% lidocaine. Using ultrasound guidance a Yueh needle was inserted into one of the larger pockets of fluid. 1060 cc of cloudy bloody fluid was removed and sent to laboratory. Most but not all of fluid was drained. He tolerated the procedure well without complication. There are still several residual loculated pockets of pleural fluid which could not be drained, without performing multiple needle sticks or administering TPA.. IMPRESSION: successful right-sided thoracentesis removing 1060 cc of fluid Interpreted and Authenticated by: Surendra Iyer 03/21/19
[2019-03-21] MEDS ORDERED: ceFAZolin 1 GM VIAL IV SCH (14:00)
[2019-03-21] MEDS: ceFAZolin 1 GM VIAL IV SCH ×2 (14:18→20:09)
[2019-03-21 14:30] LABS: pH,Body Fluid 7.37
[2019-03-21 14:35] LABS: Glucose,Pleural Fluid 100 mg/dL; LDH,Body Fluid 490 U/L
[2019-03-21 14:41] LABS: Total Protein,Pleural Fluid 3.9 gm/dL
--- NOTE | 2019-03-21 14:43 | Internal Med Progress Note ---
Medical - PN: Subj Patient information: Note initiated : 03/21/19 at 2:40 pm Service Date, if different from initiated Date: [] Patient: Erwin Gaxiola a 63 y/o M admitted on 03/17/19 for postive blood culture follow up. Chief Complaint: [] Interval history: Mr. Gaxiola is a 63 year old Male with end-stage renal disease on hemodialysis managed by Dr. Chambers, who presents to the ER today the second time with 3 days' onset of weakness/fever and shaking chills. He was evaluated in the ER the day prior with above symptoms and was discharged however his blood cultures came back positive for Streptococcus pneumoniae. He was subsequently advised to return to ER Patient carries known history of hepatitis C and has been managed by infectious disease specialist Dr. Cox Initial workup in the ER was consistent with severe sepsis with white count 17.1 pro-calcitonin Over 20 Bandemia and Fever. Chest imaging revealed pneumonia. Significant presented history patient carries a history of recurrent aspiration pneumonia. Patient was started on antibiotic coverage on Rocephin as per ID specialist. Subsequently hospitalist service was consulted At the time of evaluation patient is fairly weak fatigued but was able to answer most questions. He denies productive sputum but endorses to fevers and chills and sweats. Denies headache photophobia or joint pain. He further denies new onset skin rash, dysuria. Patient endorses to mild dizziness and intermittent chronic diarrhea. Case was discussed with Dr. Chambers. 03/18-patient doing remarkably better. Fever defervesced. White count down from 17.6-14,000. Surveillance cultures pending. GPC on repeat cultures 03/17, echocardiogram pending to rule out IgE. ESRD management ongoing per nephrology. Antibiotic coverage extended Flagyl for consideration of aspiration pneumonia. Pleural effusion on imaging. Rule out parapneumonic infusion/empyema, thoracentesis ordered 03/19- patient doing well. White count down from 14.78. Thoracentesis pending. No overnight fever or chills. And bleeding and tolerating diet. No concerns per staff. No telemetry events. Surveillance culture so far negative and last positive culture 03/17. Systolics stable around 110. Echocardiogram results pending. 03/20-patient doing clinically better, negative surveillance cultures. However thoracentesis likely empyema. Case discussed with surgery and pulmonology. Multiple loculations with septations. Surgery recommendations treatment of pneumonia and entirety followed by repeat chest imaging and if persistent loculation will need decortication/VATS at a later date. Will discuss with interventional radiology for possible TPA/tube thoracostomy. ID on board. Pulmonology will be available 03/21 for consult. Ongoing paralysis. No overnight fever chills. 03/21 patient doing well. Status post thoracentesis. CT scan no significant loculated effusions. On antibiotic coverage cefazolin 2 g Tuesday, 3 g Tuesday. Anticipate swing bed transfer in 24 hours. Continue antibiotics as per duration recommended by infectious disease specialist. Continue PT OT/hemodialysis. Anticipate swing bed transfer for continued antibiotics/PT OT and nutritional support. - Constitutional Vitals: Vital Signs Temp Pulse Resp BP Pulse Ox 97.7 F 80 18 133/82 100 03/21/19 12:00 03/21/19 12:00 03/21/19 12:00 03/21/19 12:00 03/21/19 12:00 Period Temp Pulse Resp BP Sys/William Pulse Ox Last 24 Hr 97.0 F-99.4 F 79-104 18-24 100-133/60-82 96-100 Intake and Output 03/21/19 03/21/19 03/21/19 05:59 13:59 21:59 Intake Total 700 400 Output Total 0 Balance 700 400 Weight 106 lb Intake & Output: Intake & Output 03/21/19 03/21/19 03/21/19 05:59 13:59 21:59 Intake Total 700 400 Output Total 0 Balance 700 400 Weight 106 lb Intake: IV 100 100 Oral 600 300 Output: Void Amount 0 Other: Meal Breakfast Percent of Meal Consumed 100% Feeding Ability Assist with Tray Set Up Medical - PN: Obj Da - Labs CBC & Chem 7: 03/21/19 04:15 03/21/19 04:15 Labs: Abnormal Lab Results 03/21/19 03/21/19 03/20/19 04:15 04:15 04:35 RBC 3.15 L Hgb 9.5 L Hct 29.2 L RDW 16.8 H Plt Count 66 L Seg Neutrophils % Lymphocytes % Nucleated RBCs Platelet Estimate Decreased A RBC Morphology Abnorm A Anisocytosis 1+ A Sodium 129 L Chloride 93 L 95 L BUN 59 H 45 H Creatinine 4.5 H 3.3 H Glucose 118 H 151 H Calcium 8.5 L 8.4 L Phosphorus Alkaline Phosphatase Albumin 1.9 L 2.1 L Globulin 4.1 H 4.4 H Albumin/Globulin Ratio 0.5 L 0.5 L 03/20/19 03/19/19 03/19/19 04:35 03:10 03:10 RBC 3.31 L 3.20 L Hgb 10.1 L 9.8 L Hct 30.9 L 29.9 L RDW 16.2 H 16.6 H Plt Count 81 L 75 L Seg Neutrophils % 83 H 88 H Lymphocytes % 11 L 8 L Nucleated RBCs 1 H Platelet Estimate Decreased A Decreased A RBC Morphology Abnorm A Abnorm A Anisocytosis 1+ A 1+ A Sodium 127 L Chloride 88 L BUN 85 H Creatinine 5.5 H* Glucose 163 H Calcium 8.2 L Phosphorus 5.7 H Alkaline Phosphatase 159 H Albumin 2.0 L Globulin 4.2 H Albumin/Globulin Ratio 0.5 L Meds: Medications Acetaminophen (Tylenol) 650 mg PO Q4-6HP PRN PRN Reason: PAIN/FEVER > 101 Albuterol/Ipratropium (Duoneb) 3 ml NEB Q4HP PRN PRN Reason: Shortness Of Breath Calcium Acetate (Phoslo) 667 mg PO TIDCC [facility] Cefazolin Sodium (Ancef) 2 gm IV MoWe@1400 [facility] Last Admin: 03/21/19 14:18 Dose: Not Given Documented by: Docusate Sodium (Colace) 100 mg PO BID [facility] Cefazolin Sodium 3 gm/ (Dextrose) 50 mls @ 100 mls/hr IV Fr@1400 [facility] Magnesium Sulfate (Magnesium Sulfate) 2 gm in 50 mls @ 50 mls/hr IV UD PRN PRN Reason: MG = or < 1.7 Metronidazole (Flagyl) 500 mg in 100 mls @ 100 mls/hr IV Q8H [facility]; Protocol Last Admin: 03/21/19 14:17 Dose: 100 mls/hr Documented by: Acetaminophen (Ofirmev) 700 mg in 70 mls @ 140 mls/hr IV Q6HP PRN PRN Reason: PAIN/FEVER > 101 Iron Carb/Multivit/[place]/Folic Acid (Multivitamin W/Minerals) 1 tab PO DAILY [facility] Loperamide HCl (Imodium) 2 mg PO UD PRN PRN Reason: Diarrhea Megestrol Acetate (Megace) 40 mg PO DAILY [facility] Ondansetron HCl (Zofran) 4 mg IV Q4-6HP PRN PRN Reason: Nausea And Vomiting Glecaprevir/Pibrentasvir [ Mavyret] 100-40 Mg Tab 3 dose PO QDAY DIOGENES Senna/Docusate Sodium (Senna Plus Tablet) 1 tab PO HS DIOGENES Sevelamer Carbonate (Renvela) 1,600 mg PO TIDCC [facility] Sodium Chloride (Saline Flush) 10 ml IV Q8 [facility] Last Admin: 03/21/19 14:17 Dose: 10 ml Documented by: Medical - PN: A/P - Time Spent With Patient Total time spent is greater than 50% in coordination of care (as documented) at patient's floor/unit and/or counseling patient: 25 - 35 minutes (1) Bacteremia due to Streptococcus pneumoniae Status: Acute Assessment and plan: * Bilateral Pneumonia likely aspiration versus nosocomial, clinical improvement noted on antibiotic coverage including Rocephin/Flagyl * Parapneumonic effusion/empyema-status post thoracentesis. I recommend continuing antibiotic coverage and repeating chest CT postthoracentesis in 1 week to evaluate reaccumulation. Discussed with ID/pulmonology/surgery. Patient will be candidate for VATS/decortication if persistent pleural effusion * Streptococcus pneumonia bacteremia-continue surveillance cultures, last positive blood culture 03/17 GPC. Cefazolin as per ID, source likely pneumonia/empyema. Echocardiogram no evidence of vegetation. * Severe sepsis secondary to above with end organ dysfunction - clinical improvement noted. * ESRD on hemodialysis managed per nephrology. * History of hepatitis C-continue treatment as per infectious disease specialist * Severe weight loss/protein calorie malnutrition and deconditioning-nutrition support/protein calorie supplements/aggressive physical therapy * Full code * Prophylaxis heparin Plan * Continue cefazolin as per ID cefazolin * Status post thoracentesis. Planned repeat CT chest in 1 week. * If recurrent patient will be candidate for VATS/decortication * PT OT nutrition support * Pre-existing medical condition management as above * Anticipate discharge to swing bed status and 24 hours Current Visit: Yes
[2019-03-21 15:22] LABS: Lymphocytes,Pleural Fluid 11 %; Macrophages,Pleural Fluid 1 %; Monocytes,Pleural Fluid 7 %; Neutrophils,Pleural Fluid 81 %
[2019-03-21 15:24] LABS: Appearance,Pleural Fluid CLOUDY; Color,Pleural Fluid RED; Nucleated Cells,Pleural Fld 3401 /cumm
[2019-03-21] MEDS: SENNOSIDES/DOCUSATE SODIUM 1 TAB TABLET PO SCH ×2 (20:09→21:15)
[2019-03-22] MEDS: 0.9 % SODIUM CHLORIDE 10 ML SYRINGE IV SCH ×2 (05:52→13:58)
[2019-03-22] MEDS: metroNIDAZOLE 500 MG/100 ML BAG IV SCH ×2 (05:52→13:57)
[2019-03-22 06:48] LABS: ALT/SGPT < 5 U/l (0-40); AST/SGOT 11 U/l (0-37); Albumin 2.2 gm/dL (3.2-5.2); Albumin/Globulin Ratio 0.5 (1.0-2.3); Alkaline Phosphatase 90 U/L (39-117); Bilirubin,Direct 0.2 mg/dL (0.0-0.3); Bilirubin,Total 0.5 mg/dL (0.0-1.0); Blood Urea Nitrogen 36 mg/dl (8-23); Calcium 8.5 mg/dl (8.6-10.4); Carbon Dioxide 28 mmol/L (22-30); Chloride 94 mmol/L (96-108); Gamma Glutamyl Transpeptidase 26 U/L (8-61); Globulin 4.6 gm/dL (2.2-3.7); Glomerular Filtration Rate 21; Glucose 135 mg/dL (70-105); Lactate Dehydrogenase 172 U/L (94-250); Magnesium 2.2 mg/dL (1.6-2.5); Phosphorous 2.8 mg/dL (2.7-4.5); Potassium 3.8 mmol/L (3.3-5.1); Sodium 132 mmol/L (133-145); Triglycerides 95 mg/dl (<150); Uric Acid 2.4 mg/dL (2.5-8.0)
[2019-03-22 07:33] LABS: Hematocrit 31.1 % (41.0-55.0); Hemoglobin 10.1 g/dL (13.5-16.5); Mean Cell Volume 93.6 fL (80.0-100.0); Mean Corpuscular HGB Conc 32.3 g/dL (31.0-36.0); Platelet Count 45 K/mcL (140-440); RBC 3.33 M/mcL (4.50-5.90); Red Cell Distribution Width 16.6 % (11.5-14.5); WBC 4.7 K/mcL (4.5-11.0)
[2019-03-22 07:36] LABS: Eosinophils % (Manual) 7 % (0-7); Lymphocytes % 32 % (15-49); Monocytes % (Manual) 10 % (1-12); Platelet Estimate DECREASED (NORMAL); RBC Morphology ABNORM (NORMAL); Segmented Neutrophils % 51 % (38-78)
[2019-03-22] MEDS: SEVELAMER 800 MG TABLET PO SCH ×2 (07:49→12:08)
[2019-03-22] MEDS: CALCIUM ACETATE 667 MG CAPSULE PO SCH ×2 (07:49→12:08)
[2019-03-22] MEDS ORDERED: MEGESTROL ACETATE 400 MG/10 ML ORAL.SUSP PO SCH (09:00)
[2019-03-22] MEDS ORDERED: MULTIVIT,THER IRON,CA,FA & MIN 1 TABLET PO SCH (09:00)
[2019-03-22] MEDS: GLECAPREVIR PO SCH (09:30)
[2019-03-22] MEDS: PIBRENTASVIR PO SCH (09:30)
[2019-03-22] MEDS: DOCUSATE SODIUM 100 MG CAPSULE PO SCH (09:31)
--- NOTE | 2019-03-22 16:09 | Discharge Summary ---
Medical - DS: Prov Patient information: Note initiated : 03/22/19 at 4:07 pm Service Date, if different from initiated Date: [] Patient: Erwin Gaxiola 63 y/o M admitted on 03/17/19 for postive blood culture follow up. Chief Complaint: [] Date of admission: 03/17/19 19:30 Discharge date: 03/22/19 Primary care physician: Erwin Fuentes Consults: 03/17/19 Consult to Physician [CONS] Stat Comment: Consulting Provider: Mando Adhikari Reason For Exam: Physician to Consult 03/17/19 19:36 Consult to Physician [CONS] Routine Comment: Consulting Provider: Narendra Chambers Reason For Exam: Physician to Consult 03/20/19 12:00 Consult to Physician [CONS] Routine Comment: Consulting Provider: Nam Cox Reason For Exam: Physician to Consult Medical - DS: Meds - Discharge Medications Active and Home Medications: Home Medications Loperamide HCl [Loperamide] 4 mg PO PRN PRN MDD 16 mg 11/27/18 [History Confirmed 03/17/19 Last Taken Unknown] Megestrol Acetate [Megace] 40 mg PO DAILY 11/27/18 [History Confirmed 03/17/19 Last Taken Unknown] calcium acetate 667 mg capsule 667 mg PO TID cap 12/29/18 [History Confirmed 03/17/19 Last Taken Unknown] sevelamer carbonate 800 mg tablet 1,600 mg PO TID tab 12/29/18 [History Confirmed 03/17/19 Last Taken Unknown] food supplement, lactose-reduced oral liquid 1 each PO TID ml 02/02/19 [History Confirmed 03/17/19 Last Taken Unknown] glecaprevir 100 mg-pibrentasvir 40 mg tablet 3 tab PO QDAY #270 tab 02/02/19 [Rx Confirmed 03/17/19 Last Taken Unknown] Medical - DS: Hosp Hospital course: Discharge diagnosis * Bilateral Pneumonia likely aspiration versus nosocomial, clinical improvement noted on antibiotic coverage . Currently on cefazolin as per ID * Parapneumonic effusion/empyema-status post thoracentesis. I recommend continuing antibiotic coverage and repeating chest CT post thoracentesis in 1 week to evaluate reaccumulation. Discussed with ID/pulmonology/surgery. Patient will be candidate for VATS/decortication if persistent pleural effusion. Transfer to [facility] bed status * Streptococcus pneumonia bacteremia -surveillance cultures negative. Continue cefazolin as per ID. last positive blood culture 03/17 GPC. No evidence of vegetation on echocardiogram * Severe sepsis secondary to above with end organ dysfunction -clinically resolved * ESRD on hemodialysis managed per nephrology. * History of hepatitis C-continue treatment as per infectious disease specialist * Severe weight loss/protein calorie malnutrition and deconditioning-nutrition support/protein calorie supplements/aggressive physical therapy Brief hospital course Mr. Gaxiola is a 63 year old Male with end-stage renal disease on hemodialysis managed by Dr. Chambers, who presents to the ER today the second time with 3 days' onset of weakness/fever and shaking chills. He was evaluated in the ER the day prior with above symptoms and was discharged however his blood cultures came back positive for Streptococcus pneumoniae. He was subsequently advised to return to ER Patient carries known history of hepatitis C and has been managed by infectious disease specialist Dr. Cox Initial workup in the ER was consistent with severe sepsis with white count 17.1 pro-calcitonin Over 20 Bandemia and Fever. Chest imaging revealed pneumonia. Significant presented history patient carries a history of recurrent aspiration pneumonia. Patient was started on antibiotic coverage on Rocephin as per ID specialist. Subsequently hospitalist service was consulted At the time of evaluation patient is fairly weak fatigued but was able to answer most questions. He denies productive sputum but endorses to fevers and chills and sweats. Denies headache photophobia or joint pain. He further denies new onset skin rash, dysuria. Patient endorses to mild dizziness and intermittent chronic diarrhea. Case was discussed with Dr. Chambers. 03/18-patient doing remarkably better. Fever defervesced. White count down from 17.6-14,000. Surveillance cultures pending. GPC on repeat cultures 03/17, echocardiogram pending to rule out IgE. ESRD management ongoing per nephrology. Antibiotic coverage extended Flagyl for consideration of aspiration pneumonia. Pleural effusion on imaging. Rule out parapneumonic infusion/empyema, thoracentesis ordered 03/19- patient doing well. White count down from 14.78. Thoracentesis pending. No overnight fever or chills. And bleeding and tolerating diet. No concerns per staff. No telemetry events. Surveillance culture so far negative and last positive culture 03/17. Systolics stable around 110. Echocardiogram results pending. 03/20-patient doing clinically better, negative surveillance cultures. However thoracentesis likely empyema. Case discussed with surgery and pulmonology. Multiple loculations with septations. Surgery recommendations treatment of pneumonia and entirety followed by repeat chest imaging and if persistent loculation will need decortication/VATS at a later date. Will discuss with interventional radiology for possible TPA/tube thoracostomy. ID on board. Pulmonology will be available 03/21 for consult. Ongoing paralysis. No overnight fever chills. 03/21 patient doing well. Status post thoracentesis. CT scan no significant loculated effusions. On antibiotic coverage cefazolin 2 g Tuesday, 3 g Tuesday. Anticipate swing bed transfer in 24 hours. Continue antibiotics as per duration recommended by infectious disease specialist. Continue PT OT/hemodialysis. Anticipate swing bed transfer for continued antibiotics/PT OT and nutritional support. 03/22-patient doing well. No new events. No concerns per staff. Shortness of breath much improved. Continue antibiotic coverage as per ID recommendation through April 02. Transferring to swing bed status for continued antibiotics/post hospitalized in rehabilitation/repeat CT scan in 1 week. Continue nutrition support Discharge diagnosis: . - Time Spent with Patient Total time spent providing and/or coordinating discharge services: Greater than 30 minutes Medical - DS: Exam - Constitutional Vitals: Vital Signs Temp Pulse Pulse Resp BP BP Pulse Ox 03/22/19 12:00 98.4 F 20 135/86 100 03/22/19 07:27 98.9 F 82 18 130/80 93 03/22/19 04:24 98.7 F 83 18 118/70 98 03/21/19 23:24 98 F 85 18 125/77 96 03/21/19 19:22 98.4 F 88 24 H 118/73 98 03/21/19 18:44 98.5 F 95 H 97/64 03/21/19 17:59 89 134/86 03/21/19 17:31 86 138/93 03/21/19 16:59 85 122/80 03/21/19 16:29 80 145/92 Intake and Output 03/22/19 03/22/19 03/22/19 05:59 13:59 21:59 Intake Total 300 820 Balance 300 820 Intake: IV 100 100 Oral 200 720 Other: Meal Lunch Percent of Meal Consumed 100% Feeding Ability Assist with Tray Set Up Weight 104 lb Patient Weight 03/23/19 05:59 Weight 104 lb Medical - DS: Data Labs on day of discharge: Labs from last 24 hours 03/22/19 03/22/19 04:25 04:25 WBC 4.7 RBC 3.33 L Hgb 10.1 L Hct 31.1 L MCV 93.6 MCH 30.2 MCHC 32.3 RDW 16.6 H Plt Count 45 L* MPV 9.0 Total Counted 100 Seg Neutrophils % 51 Band Neutrophils % Not Reportable Lymphocytes % 32 Monocytes % (Manual) 10 Eosinophils % (Manual) 7 Platelet Estimate Decreased A RBC Morphology Abnorm A Sodium 132 L Potassium 3.8 Chloride 94 L Carbon Dioxide 28 Anion Gap 10.0 BUN 36 H Creatinine 3.1 H GFR Calculation 21 Glucose 135 H Uric Acid 2.4 L Calcium 8.5 L Phosphorus 2.8 Magnesium 2.2 Total Bilirubin 0.5 Direct Bilirubin 0.2 GGT 26 AST 11 ALT < 5 Alkaline Phosphatase 90 Lactate Dehydrogenase 172 Total Protein 6.8 Albumin 2.2 L Globulin 4.6 H Albumin/Globulin Ratio 0.5 L Triglycerides 95 Preliminary micro results at discharge 03/20/19 11:49 Blood Culture - Preliminary Blood 03/21/19 12:34 Anaerobic Culture - Preliminary Pleural Fluid Body Fluid Culture - Preliminary 03/19/19 10:46 Anaerobic Culture - Preliminary Pleural Fluid Body Fluid Culture - Preliminary 03/18/19 10:02 Blood Culture - Preliminary Blood 03/18/19 10:08 Blood Culture - Preliminary Blood 03/20/19 08:15 Blood Culture - Preliminary Blood 03/19/19 03:17 Blood Culture - Preliminary Blood 03/19/19 03:10 Blood Culture - Preliminary Blood Medical - DS: A/P - Patient/Caregiver Discharge Instructions Activity: as per physical therapy Diet: Regular Diet - Problem Maintenance (1) Bacteremia due to Streptococcus pneumoniae Status: Acute - Follow up Plan Follow up with: Nam Cox MD [Physician] - 04/02/19 (Please go to Dr. Cox's right after your dialysis treatment on 04/02/19.) Narendra Chambers MD [Physician] - Erwin Fuentes MD [Primary Care Provider] - Disposition: Xfer As Swing Bed (TS) Prognosis: Fair Rehab Potential: Fair I certify that the patient requires SNF services: Yes Overall status at discharge: patient is progressing back to baseline
[2019-03-23] MEDS ORDERED: ceFAZolin 3 GM in DEXTROSE 5% IN WATER 50 ML IV SCH ×2 (14:00)
--- NOTE | 2019-03-23 14:27 | Non-GYN Cytology Report ---
NON GRAPHIC TECHNICIAN SPECIMEN NG DX CATEGORY Negative MICROSCOPIC DIAGNOSIS RIGHT PLEURAL FLUID, THORACENTESIS: -- DENSE ACUTE INFLAMMATION WITH SCATTERED HISTIOCYTES. -- NO ATYPICAL OR MALIGNANT CELLS IDENTIFIED, SEE COMMENT. (EBD:domenic) COMMENT: The patient's clinical presentation of empyema is noted. The findings are compatible with the clinical presentation. No atypical or malignant cells are identified. MICROSCOPIC DESCRIPTION Cytologic preparations of the right pleural fluid show abundant neutrophilic inflammation with scattered histiocytes. No atypical or malignant cells are identified. By immunohistochemistry, CD68 highlights histiocytes while CK7 highlights rare scattered mesothelial cells. WT1, calretinin and CK20 are negative. MOC31 and BerEP4 are negative for glandular epithelial cells. All stains show adequate technical control. (EBD:domenic) EXTERNAL COMMENT ~50 mL red fluid: 1 thinprep, 1 H/E, 1 Diff Quik, 1 Gaytan Giemsa, 1 cell block Electronically Signed by: Pam Godinez M.D.
--- NOTE | 2019-03-23 14:31 | Non-GYN Cytology Report ---
NON STRADDLE BUG OPERATOR SPECIMEN NG DX CATEGORY Negative MICROSCOPIC DIAGNOSIS PLEURAL FLUID, RIGHT THORACENTESIS: -- NO ATYPICAL OR MALIGNANT CELLS IDENTIFIED. -- MARKED ACUTE INFLAMMATION, SEE COMMENT. (EBD:domenic) COMMENT: The pleural fluid shows marked acute inflammation. The patient's clinical and radiologic history is noted and the recent prior thoracentesis specimen ([id number], 03/20/2019) is reviewed and correlated. No atypia or malignancy is identified. MICROSCOPIC DESCRIPTION Cytologic preparations show marked acute neutrophilic inflammation. No atypical or malignant cells are identified. EXTERNAL COMMENT ~1000 mL red fluid: 1 thinprep, 1 H/E, 1 Diff Quik, 1 Gaytan Giemsa, 1 cell block Electronically Signed by: Pam Godinez M.D.
== END 2019-03-22 16:07 | disposition swing bed (61) | DRG 177 ==
LOC: ED 15:11 → ICU 19:30 → MEDSUR 03-19 22:51
PROVIDERS: ADMIT Internal Medicine; ATTEND Internal Medicine